=== PATIENT | male | born 1950 | race Caucasian/White ===

== ENCOUNTER → 2016-05-17 | Outpatient (CLI) | payer MEDICARE, OTHER ==
[2016-05-17 17:14] LABS: Basophils % (A) 0 %; CH 30.6; CHCM 31.7; Eosinophils # (A) 0.3 k/uL (0-0.7); Eosinophils % (A) 3 %; HCT 45.2 % (39.0-53.0); HDW 2.16; HGB 14.2 gm/dL (13.0-17.5); Luc % (Auto) 4; Lymphocytes # (A) 2.8 k/uL (1.0-4.8); Lymphocytes % (A) 32 %; MCH 30.5 pg (25.0-35.0); MCHC 31.4 g/dL (31.0-37.0); Mean Platelet Volume 6.9; Monocytes # (A) 0.5 k/uL (0-1.0); Monocytes % (A) 6 %; Neutrophils # (A) 4.8 k/uL (1.3-7.7); Neutrophils % (A) 55 %; RBC 4.66 m/uL (4.30-5.90); RDW 12.6 % (11.5-15.5); WBC 8.8 k/uL (3.8-10.6); WBC (Perox) 8.91
== END ==
LOC: LABWHC1 16:51
PROVIDERS: ATTEND Internal Medicine
DX: J06.9 Acute upper respiratory infection, unspecified (principal)
CPT/HCPCS: 85025; 87502; 36415; G0463; 99212

== ENCOUNTER 2018-01-20 15:07 | Emergency (ER) | payer MEDICARE ==
[2018-01-20] MEDS ORDERED: FAMOTIDINE 20 MG/2 ML VIAL IV STA (15:37)
[2018-01-20] MEDS ORDERED: diphenhydrAMINE 50 MG/ML 1 ML VIAL IVP STA (15:38)
--- NOTE | 2018-01-20 15:41 | ED ---
General Adult HPI - General Chief complaint: Shortness of Breath Stated complaint: Blood clot in right lung Time Seen by Provider: 01/20/18 15:28 Source: patient, RN notes reviewed Mode of arrival: wheelchair Limitations: no limitations - History of Present Illness Initial comments: This is a 7-year-old male with a history of pneumonia about a month ago and a history of DVT to his right lower extremity about 2 years ago who states he was sent over from a doctor's office with a request for evaluation for possible pulmonary embolus. Patient's had right-sided anterior chest pain sharp in nature it does get worse with movement and deep breathing. He was on antibiotics for the pneumonia that is cleared up with chest pain is been persistent. Sharp in nature mild to moderate in severity. He denies any other complaints she denies any leg or calf pain and swelling. Fevers chills nausea vomiting sweats or other symptoms at this time. - Related Data Home Medications Medication Instructions Recorded Confirmed Multivitamin [Men's Multi-Vitamin] 1 tab PO DAILY 01/27/15 01/20/18 Spironolactone [Aldactone] 25 mg PO DAILY 01/27/15 01/20/18 Cholecalciferol [Vitamin D3] 400 unit PO DAILY 08/28/15 01/20/18 Dilaudid Through Pump 3.5 mg INTRATHECA CONTINUOUS 08/28/15 01/20/18 EPINEPHrine [Epipen Jr 2-Leobardo] 0.15 mg IM ONCE PRN 08/28/15 01/20/18 Lisinopril 5 mg PO DAILY 08/28/15 01/20/18 [place]-3 Fatty Acids/Fish Oil [Fish 1 cap PO DAILY 08/28/15 01/20/18 Oil 1,000 mg Softgel] Aspirin EC [Ecotrin Low Dose] 81 mg PO DAILY 01/20/18 01/20/18 Furosemide [Lasix] 20 mg PO DAILY 01/20/18 01/20/18 Previous Rx's Medication Instructions Recorded Ibuprofen 800 mg PO Q6HR PRN #20 tablet 01/20/18 Ketorolac [Toradol] 10 mg PO Q6HR #20 tab 01/20/18 Allergies Allergy/AdvReac Type Severity Reaction Status Date / Time Iodinated Contrast- Oral and Allergy Anaphylaxis Verified 01/20/18 16:15 IV Dye [Iodinated Contrast Media - IV Dye] metformin AdvReac Abdominal Verified 01/20/18 16:15 Pain Review of Systems ROS Statement: Those systems with pertinent positive or pertinent negative responses have been documented in the HPI. ROS Other: All systems not noted in ROS Statement are negative. Past Medical History Past Medical History: COPD, Hypertension, Pneumonia, Sleep Apnea/CPAP/BIPAP Additional Past Medical History / Comment(s): Hx. of Diverticulitis, Pneumonia 2 yrs. ago, wears oxygen @ 5L. Complains of L sided abd. pain. chronic back pain History of Any Multi-Drug Resistant Organisms: None Reported Past Surgical History: Appendectomy, Cholecystectomy Additional Past Surgical History / Comment(s): Colonoscopy Past Anesthesia/Blood Transfusion Reactions: No Reported Reaction Past Psychological History: No Psychological Hx Reported Smoking Status: Former smoker Past Alcohol Use History: None Reported, Rare Past Drug Use History: None Reported - Past Family History Brother(s) Family Medical History: Cancer Additional Family Medical History / Comment(s): Colon General Exam - General Exam Comments Initial Comments: This is a well-developed well-nourished awake alert oriented 3 male Limitations: no limitations General appearance: alert, in no apparent distress Head exam: Present: atraumatic, normocephalic, normal inspection Eye exam: Present: normal appearance, PERRL, EOMI. Absent: scleral icterus, conjunctival injection, periorbital swelling ENT exam: Present: normal exam, mucous membranes moist Neck exam: Present: normal inspection. Absent: tenderness, meningismus, lymphadenopathy Respiratory exam: Present: normal lung sounds bilaterally, chest wall tenderness (Sweats patient across the anterior right chest wall at the costal sternal margin. No step-off or crepitation.). Absent: respiratory distress, wheezes, rales, rhonchi, stridor Cardiovascular Exam: Present: regular rate, normal rhythm, normal heart sounds. Absent: systolic murmur, diastolic murmur, rubs, gallop, clicks GI/Abdominal exam: Present: soft, normal bowel sounds. Absent: distended, tenderness, guarding, rebound, rigid Extremities exam: Present: normal inspection, full ROM, normal capillary refill , other (No Homans sign). Absent: tenderness, pedal edema, joint swelling, calf tenderness Back exam: Present: normal inspection Neurological exam: Present: alert, oriented X3, CN II-XII intact Psychiatric exam: Present: normal affect, normal mood Skin exam: Present: warm, dry, intact, normal color. Absent: rash Course Vital Signs 01/20/18 01/20/18 15:21 16:03 Temperature 98.4 F Pulse Rate 69 Respiratory 16 24 Rate Blood Pressure 154/82 O2 Sat by Pulse 95 Oximetry EKG Findings - EKG Results: EKG: interpreted by ERMD, sinus rhythm (Sinus rhythm with sinus arrhythmia rate was 60. A 150 QRS duration 96 daily since QTC 434/434 low-voltage QRS nonspecific T-wave configuration) Medical Decision Making - Medical Decision Making I did have a long discussion the patient regarding the findings the presentation is consistent with costochondritis - Lab Data Result diagrams: 01/20/18 16:00 01/20/18 16:00 Lab Results 01/20/18 01/20/18 01/20/18 Range/Units 16:00 16:00 16:00 WBC 7.5 (3.8-10.6) k/uL RBC 4.54 (4.30-5.90) m/uL Hgb 13.8 (13.0-17.5) gm/dL Hct 43.3 (39.0-53.0) % MCV 95.5 (80.0-100.0) fL MCH 30.4 (25.0-35.0) pg MCHC 31.8 (31.0-37.0) g/dL RDW 13.0 (11.5-15.5) % Plt Count 313 (150-450) k/uL Neutrophils % 60 % Lymphocytes % 28 % Monocytes % 7 % Eosinophils % 3 % Basophils % 1 % Neutrophils # 4.5 (1.3-7.7) k/uL Lymphocytes # 2.1 (1.0-4.8) k/uL Monocytes # 0.5 (0-1.0) k/uL Eosinophils # 0.3 (0-0.7) k/uL Basophils # 0.0 (0-0.2) k/uL D-Dimer (<0.60) mg/L FEU Sodium 138 (137-145) mmol/L Potassium 4.5 (3.5-5.1) mmol/L Chloride 99 (98-107) mmol/L Carbon Dioxide 32 H (22-30) mmol/L Anion Gap 7 mmol/L BUN 14 (9-20) mg/dL Creatinine 0.56 L (0.66-1.25) mg/dL Est GFR (CKD-EPI)AfAm >90 (>60 ml/min/1.73 sqM) Est GFR (CKD-EPI)NonAf >90 (>60 ml/min/1.73 sqM) Glucose 214 H (74-99) mg/dL Calcium 9.0 (8.4-10.2) mg/dL Magnesium 2.1 (1.6-2.3) mg/dL Total Bilirubin 0.4 (0.2-1.3) mg/dL AST 24 (17-59) U/L ALT 22 (21-72) U/L Alkaline Phosphatase 64 (38-126) U/L Total Creatine Kinase 93 (55-170) U/L CK-MB (CK-2) 1.9 (0.0-2.4) ng/mL CK-MB (CK-2) Rel Index 2.0 Troponin I <0.012 (0.000-0.034) ng/mL Total Protein 6.9 (6.3-8.2) g/dL Albumin 3.9 (3.5-5.0) g/dL //18 Range/Units 16:00 WBC (3.8-10.6) k/uL RBC (4.30-5.90) m/uL Hgb (13.0-17.5) gm/dL Hct (39.0-53.0) % MCV (80.0-100.0) fL MCH (25.0-35.0) pg MCHC (31.0-37.0) g/dL RDW (11.5-15.5) % Plt Count (150-450) k/uL Neutrophils % % Lymphocytes % % Monocytes % % Eosinophils % % Basophils % % Neutrophils # (1.3-7.7) k/uL Lymphocytes # (1.0-4.8) k/uL Monocytes # (0-1.0) k/uL Eosinophils # (0-0.7) k/uL Basophils # (0-0.2) k/uL D-Dimer 0.76 H (<0.60) mg/L FEU Sodium (137-145) mmol/L Potassium (3.5-5.1) mmol/L Chloride (98-107) mmol/L Carbon Dioxide (22-30) mmol/L Anion Gap mmol/L BUN (9-20) mg/dL Creatinine (0.66-1.25) mg/dL Est GFR (CKD-EPI)AfAm (>60 ml/min/1.73 sqM) Est GFR (CKD-EPI)NonAf (>60 ml/min/1.73 sqM) Glucose (74-99) mg/dL Calcium (8.4-10.2) mg/dL Magnesium (1.6-2.3) mg/dL Total Bilirubin (0.2-1.3) mg/dL AST (17-59) U/L ALT (21-72) U/L Alkaline Phosphatase (38-126) U/L Total Creatine Kinase (55-170) U/L CK-MB (CK-2) (0.0-2.4) ng/mL CK-MB (CK-2) Rel Index Troponin I (0.000-0.034) ng/mL Total Protein (6.3-8.2) g/dL Albumin (3.5-5.0) g/dL - Radiology Data Radiology results: report reviewed (Patient CAT scan is negative for acute findings no PE there is some inflammatory changes this would be consistent with the patient's resolving pneumonia.), image reviewed Disposition Clinical Impression: Chest wall pain, Costochondritis, acute Disposition: HOME SELF-CARE Condition: Good Instructions: Costochondritis (ED), Chest Wall Pain (ED) Prescriptions: Ibuprofen 800 mg PO Q6HR PRN #20 tablet PRN Reason: Pain Ketorolac [Toradol] 10 mg PO Q6HR #20 tab Is patient prescribed a controlled substance at d/c from ED?: No Referrals: Patrick Nicole MD [Primary Care Provider] - 1-2 days
[2018-01-20 16:20] LABS: Basophils % (A) 1 %; Eosinophils # (A) 0.3 k/uL (0-0.7); Eosinophils % (A) 3 %; HCT 43.3 % (39.0-53.0); HGB 13.8 gm/dL (13.0-17.5); Lymphocytes # (A) 2.1 k/uL (1.0-4.8); Lymphocytes % (A) 28 %; MCH 30.4 pg (25.0-35.0); MCHC 31.8 g/dL (31.0-37.0); MCV 95.5 fL (80.0-100.0); Mean Platelet Volume 6.8; Monocytes # (A) 0.5 k/uL (0-1.0); Monocytes % (A) 7 %; Neutrophils # (A) 4.5 k/uL (1.3-7.7); Neutrophils % (A) 60 %; Platelet Count 313 k/uL (150-450); RBC 4.54 m/uL (4.30-5.90); WBC 7.5 k/uL (3.8-10.6)
[2018-01-20 16:30] LABS: ALT 22 U/L (21-72); AST 24 U/L (17-59); Albumin 3.9 g/dL (3.5-5.0); Alkaline Phosphatase 64 U/L (38-126); Anion Gap 7 mmol/L; Blood Urea Nitrogen 14 mg/dL (9-20); Carbon Dioxide 32 mmol/L (22-30); Chloride 99 mmol/L (98-107); Glucose 214 mg/dL (74-99); Magnesium 2.1 mg/dL (1.6-2.3); Potassium 4.5 mmol/L (3.5-5.1); Sodium 138 mmol/L (137-145); Total Bilirubin 0.4 mg/dL (0.2-1.3); Total Protein 6.9 g/dL (6.3-8.2)
[2018-01-20 16:33] LABS: Creatine Kinase 93 U/L (55-170)
[2018-01-20] MEDS ORDERED: fentaNYL (PF) 50 MCG/ML 2 ML AMP IV STA (16:40)
[2018-01-20 16:46] LABS: Creatine Kinase MB 1.9 ng/mL (0.0-2.4); Troponin I <0.012 ng/mL (0.000-0.034)
--- NOTE | 2018-01-20 17:15 | CT ---
EXAMINATION TYPE: CT angio chest DATE OF EXAM: 01/20/2018 5:06 PM COMPARISON: None HISTORY: SOB. hx blood cot in his leg [address] DLP: 696.6 mGycm Automated exposure control for dose reduction was used. CONTRAST: CTA scan of the thorax is performed with IV Contrast, patient injected with 100 mL of Isovue 370, pul monary embolism protocol. There are 3-D post processed images.. FINDINGS: There is pulmonary emphysema. There is bullous disease throughout both lungs. There is some patchy re ticular nodular infiltrate at the lung bases and more on the left side. There is no evidence of a pul monary mass. There is no pleural effusion. Heart size is normal. There is no pericardial effusion. Th oracic aorta is intact without evidence of aneurysm or dissection. I see no filling defects in the pu lmonary arteries. There are no hilar masses. There is no mediastinal adenopathy. The bony thorax is i ntact. There is spurring in the thoracic spine. The ribs appear intact. IMPRESSION: NO EVIDENCE OF PULMONARY EMBOLISM. EMPHYSEMA. RETICULAR NODULAR INFILTRATES AT THE LUNG BASES CONSISTENT WITH INFLAMMATORY DISEASE.
[2018-01-20] MEDS ORDERED: methylPREDNISolone SOD SUCCI 125 MG/2 ML VIAL IV STA (17:22)
[2018-01-20] MEDS ORDERED: SODIUM CHLORIDE 0.9% 500 ML 500 ML IV STA (17:35)
[2018-01-20 18:08] VITALS: BP 135/89; PULSE 62; RESP 20; TEMP 98.2
== END 2018-01-20 18:08 | disposition home or self-care (01) ==
LOC: EC 15:07
DX: M94.0 Chondrocostal junction syndrome [Tietze] (principal); R93.89 Abnormal findings on diagnostic imaging of other specified body structures; I10 Essential (primary) hypertension; J44.9 Chronic obstructive pulmonary disease, unspecified; G89.29 Other chronic pain; G47.30 Sleep apnea, unspecified; Z87.891 Personal history of nicotine dependence; Z88.8 Allergy status to other drugs, medicaments and biological substances; Z91.041 Radiographic dye allergy status; Z79.82 Long term (current) use of aspirin; Z79.891 Long term (current) use of opiate analgesic; Z79.899 Other long term (current) drug therapy; Z99.81 Dependence on supplemental oxygen; Z99.89 Dependence on other enabling machines and devices
CPT/HCPCS: 36415; 93005; 85379; 80053; 82550; 82553; 83735; 84484; 85025; 71275; 99285; 96374; 96375 ×3; J1200; J2930; J3010; Q9967

== ENCOUNTER 2018-12-08 10:03 | Day surgery (SDC) | payer MEDICARE ==
[2018-12-07 10:10] VITALS: BMI 39.2
--- NOTE | 2018-12-07 19:34 | P.GSHP ---
History of Present Illness H&P Date: 12/08/18 CHIEF COMPLAINT: GERD HISTORY OF PRESENT ILLNESS: The patient is a 68-year-old male who presents reports gastroesophageal reflux disease. Upper endoscopy was offered for further evaluation and management. PAST MEDICAL HISTORY: Please see list. PAST SURGICAL HISTORY: Please see list. MEDICATIONS: Please see list. ALLERGIES: Please see list. SOCIAL HISTORY: No illicit drug use FAMILY HISTORY: No reports of Crohn disease or ulcerative colitis. REVIEW OF ORGAN SYSTEMS: CONSTITUTIONAL: No reports of fevers or chills. GI: Denies any blood in stools or constipation. PHYSICAL EXAM: VITAL SIGNS: Stable GENERAL: Well-developed and pleasant in no acute distress. HEENT: No scleral icterus. Extraocular movements grossly intact. Moist buccal mucosa. NECK: Supple without lymphadenopathy. CHEST: Unlabored respirations. Equal bilateral excursions. CARDIOVASCULAR: Regular rate and rhythm. Distal 2+ pulses. ABDOMEN: Soft, nondistended. MUSCULOSKELETAL: No clubbing, cyanosis, or edema. ASSESSMENT: 1. Gastroesophageal reflux disease PLAN: 1. Recommend proceeding with an upper endoscopy Past Medical History Past Medical History: COPD, Deep Vein Thrombosis (DVT), GERD/Reflux, Hypertension, Pneumonia, Sleep Apnea/CPAP/BIPAP Additional Past Medical History / Comment(s): Hx. of Diverticulitis, Pneumonia 2 yrs. ago, uses oxygen @ 5L, chronic back pain, right upper quadrant pain, uses CPAP, hx. DVT leg 4 yrs ago History of Any Multi-Drug Resistant Organisms: None Reported Past Surgical History: Appendectomy, Bowel Resection, Cholecystectomy Additional Past Surgical History / Comment(s): Colonoscopy, exp. laparotomy Past Anesthesia/Blood Transfusion Reactions: No Reported Reaction Smoking Status: Former smoker - Past Family History Brother(s) Family Medical History: Cancer Additional Family Medical History / Comment(s): Colon Medications and Allergies Home Medications Medication Instructions Recorded Confirmed Type Multivitamin [Men's Multi-Vitamin] 1 tab PO DAILY 01/27/15 12/07/18 History Spironolactone [Aldactone] 25 mg PO DAILY 01/27/15 12/07/18 History Cholecalciferol [Vitamin D3] 400 unit PO DAILY 08/28/15 12/07/18 History Dilaudid Through Pump 3.5 mg INTRATHECA CONTINUOUS 08/28/15 12/07/18 History EPINEPHrine [Epipen Jr 2-Leobardo] 0.15 mg IM ONCE PRN 08/28/15 12/07/18 History Lisinopril 5 mg PO DAILY 08/28/15 12/07/18 History [place]-3 Fatty Acids/Fish Oil [Fish 1 cap PO DAILY 08/28/15 12/07/18 History Oil 1,000 mg Softgel] Aspirin EC [Ecotrin Low Dose] 81 mg PO DAILY 01/20/18 12/07/18 History Furosemide [Lasix] 20 mg PO DAILY 01/20/18 12/07/18 History Ibuprofen 800 mg PO Q6HR PRN #20 tablet 01/20/18 12/07/18 Rx Albuterol Nebulized [Ventolin 2.5 mg INHALATION Q6H 12/07/18 12/07/18 History Nebulized] Albuterol Sulfate [Proair Hfa] 1 - 2 puff INHALATION Q6HR PRN 12/07/18 12/07/18 History Atorvastatin [Lipitor] 10 mg PO DAILY 12/07/18 12/07/18 History Allergies Allergy/AdvReac Type Severity Reaction Status Date / Time Iodinated Contrast Media Allergy Anaphylaxis Verified 12/07/18 09:47 [Iodinated Contrast Media - IV Dye] metformin AdvReac Abdominal Verified 12/07/18 09:47 Pain
[~2018-12-08 10:03] MED LIST: LACTATED RINGERS 1,000 ML IV SCH
[2018-12-08 10:37] VITALS: TEMP 98.3
[2018-12-08] MEDS ORDERED: LIDOCAINE 1% 20 ML VIAL (10MG/ML) FOR IV START INTRADERMA ONE (10:39)
[2018-12-08] MEDS ORDERED: PROPOFOL 10 MG/ML 20 ML VIAL IV ONE (11:13)
[2018-12-08] MEDS ORDERED: LIDOCAINE 1% INJ 10MG/ML (20 ML MDV) ONE (11:13)
--- NOTE | 2018-12-08 11:49 | P.PCN ---
Date of Procedure: 12/08/18 Description of Procedure: PREOPERATIVE DIAGNOSIS: Gastroesophageal reflux disease. Morbid obesity. Epigastric abdominal pain POSTOPERATIVE DIAGNOSIS: Gastroesophageal reflux disease. Diaphragmatic hiatal hernia Morbid obesity. Gastritis. Epigastric abdominal pain OPERATION: Esophagogastroduodenoscopy with biopsies along antrum. SURGEON: Jaclyn Ware MD ANESTHESIA: MAC. INDICATIONS: The patient is a 68-year-old female who presents with a history of reflux disease. Benefits and risks of the procedure were described. Informed consent was obtained. DESCRIPTION: The patient was brought into the endoscopy suite and laid in the left lateral decubitus position. An Olympus gastroscope was passed along the posterior oropharynx down to the distal esophagus where the squamocolumnar junction was encountered at 37 cm from the incisors. The stomach was entered and no bile reflux was found. Additional findings are listed below. Biopsies with cold forceps were obtained of the antrum. The first through third portion of the duodenum was examined and unremarkable. Retroflexion of the scope confirmed Hill grade 3 lower esophageal valve. The squamocolumnar junction demonstrated LA grade B erosive esophagitis. The stomach was desufflated. The patient tolerated the procedure well. FINDINGS: Squamocolumnar junction 37 cm from the incisors. Diaphragmatic hiatus at 41 cm. Hiatal hernia, 4 cm Hill grade 3 lower esophageal valve. LA grade B erosive esophagitis. No active duodenitis. Chronic gastritis RECOMMENDATIONS: Upper endoscopy as needed. Plan - Discharge Summary Discharge Rx Participant: No New Discharge Prescriptions: New Omeprazole 40 mg PO DAILY #14 capsule.dr No Action Spironolactone [Aldactone] 25 mg PO DAILY Multivitamin [Men's Multi-Vitamin] 1 tab PO DAILY [place]-3 Fatty Acids/Fish Oil [Fish Oil 1,000 mg Softgel] 1 cap PO DAILY Lisinopril 5 mg PO DAILY Cholecalciferol [Vitamin D3] 400 unit PO DAILY EPINEPHrine [Epipen Jr 2-Leobardo] 0.15 mg IM ONCE PRN PRN Reason: Anaphylaxis Dilaudid Through Pump 3.5 mg INTRATHECA CONTINUOUS Furosemide [Lasix] 20 mg PO DAILY Aspirin EC [Ecotrin Low Dose] 81 mg PO DAILY Ibuprofen 800 mg PO Q6HR PRN #20 tablet PRN Reason: Pain Atorvastatin [Lipitor] 10 mg PO DAILY Albuterol Sulfate [Proair Hfa] 1 - 2 puff INHALATION Q6HR PRN PRN Reason: Dyspnea Albuterol Nebulized [Ventolin Nebulized] 2.5 mg INHALATION Q6H Discharge Medication List Multivitamin [Men's Multi-Vitamin] 1 tab PO DAILY 01/27/15 [History] Spironolactone [Aldactone] 25 mg PO DAILY 01/27/15 [History] Cholecalciferol [Vitamin D3] 400 unit PO DAILY 08/28/15 [History] Dilaudid Through Pump 3.5 mg INTRATHECA CONTINUOUS 08/28/15 [History] EPINEPHrine [Epipen Jr 2-Leobardo] 0.15 mg IM ONCE PRN 08/28/15 [History] Lisinopril 5 mg PO DAILY 08/28/15 [History] [place]-3 Fatty Acids/Fish Oil [Fish Oil 1,000 mg Softgel] 1 cap PO DAILY 08/28/15 [History] Aspirin EC [Ecotrin Low Dose] 81 mg PO DAILY 01/20/18 [History] Furosemide [Lasix] 20 mg PO DAILY 01/20/18 [History] Ibuprofen 800 mg PO Q6HR PRN #20 tablet 01/20/18 [Rx] Albuterol Nebulized [Ventolin Nebulized] 2.5 mg INHALATION Q6H 12/07/18 [History] Albuterol Sulfate [Proair Hfa] 1 - 2 puff INHALATION Q6HR PRN 12/07/18 [History] Atorvastatin [Lipitor] 10 mg PO DAILY 12/07/18 [History] Omeprazole 40 mg PO DAILY #14 capsule. 12/08/18 [Rx] Follow up Appointment(s)/Referral(s): Jaclyn Ware MD [STAFF PHYSICIAN] - 12/19/18 Patient Instructions/Handouts: *[facility] - (Anesthesia) Endoscopy Discharge Instructions, Hiatal Hernia (DC), Gastroesophageal Reflux Disease (DC) Discharge Disposition: HOME SELF-CARE
[2018-12-08 12:01] VITALS: BP 123/73; PULSE 77; RESP 18
== END 2018-12-08 12:11 | disposition home or self-care (01) ==
LOC: ORWHC2ENDO 10:03
PROVIDERS: ATTEND Surgery Plastic and Reconstructive Surgery
DX: K29.50 Unspecified chronic gastritis without bleeding (principal); K21.0 Gastro-esophageal reflux disease with esophagitis; K22.10 Ulcer of esophagus without bleeding; K44.9 Diaphragmatic hernia without obstruction or gangrene; K31.89 Other diseases of stomach and duodenum; I10 Essential (primary) hypertension; E78.5 Hyperlipidemia, unspecified; J44.9 Chronic obstructive pulmonary disease, unspecified; G89.29 Other chronic pain; E66.01 Morbid (severe) obesity due to excess calories; G47.30 Sleep apnea, unspecified; Z91.041 Radiographic dye allergy status; Z88.8 Allergy status to other drugs, medicaments and biological substances; Z99.89 Dependence on other enabling machines and devices; Z79.891 Long term (current) use of opiate analgesic; Z79.82 Long term (current) use of aspirin; Z79.899 Other long term (current) drug therapy; Z86.718 Personal history of other venous thrombosis and embolism; Z87.01 Personal history of pneumonia (recurrent); Z90.49 Acquired absence of other specified parts of digestive tract; Z87.891 Personal history of nicotine dependence; Z87.19 Personal history of other diseases of the digestive system; Z91.038 Other insect allergy status; Z68.39 Body mass index [BMI] 39.0-39.9, adult; Z80.0 Family history of malignant neoplasm of digestive organs
CPT/HCPCS: 88305; 43239; J2001; J2704

== ENCOUNTER → 2019-01-03 | Outpatient (CLI) | payer MEDICARE ==
[2019-01-03 09:18] LABS: African American GFR (CKD) >90 (>60 ml/min/1.73 sqM); Blood Urea Nitrogen 14 mg/dL (9-20)
--- NOTE | 2019-01-03 13:26 | FL ---
EXAMINATION TYPE: FL barium swallow DATE OF EXAM: 01/03/2019 COMPARISON: None HISTORY: Gastroesophageal reflux, abdominal pain always feels hungry TECHNIQUE: Double air contrast technique Fluoroscopy time: 1 minute 3 seconds Images: 16 FINDINGS: The esophagus has a normal course to the distal esophageal junction. Multiple secondary and tertiary contractions are evident throughout the examination. Esophagus dilates to normal caliber. No intralum inal defects are evident. Extrarenal defects are not evident. Note is made of aspiration during the exam. There is incomplete stripping esophageal bolus the horizontal drinking position. As incomplete stripp ing of the esophageal bolus and horizontal drinking position. IMPRESSIONS: 1. Presbyesophagus. Multiple large tertiary as well as secondary contractions were evident during exa m. 2. Aspiration during the exam.
--- NOTE | 2019-01-03 16:14 | CT ---
EXAMINATION TYPE: CT abdomen pelvis w con DATE OF EXAM: 01/03/2019 COMPARISON: 08/28/2015 INDICATION: Diverticulitis DLP: 2099.50 mGycm, Automated exposure control for dose reduction was used. CONTRAST: 100 ml mL of Isovue 300. Study performed with Oral Contrast TECHNIQUE: Axial images were obtained from above the diaphragm to the pubic rami in the axial plane a t 5 mm thick sections. Reconstructed images are reviewed on the computer in the coronal plane. FINDINGS: Limited CT sections are obtained the lung bases. The lung bases are clear. CT ABDOMEN: Electronic device overlies anterolateral right abdomen. Liver: Normal Spleen: Normal Pancreas: Fatty infiltration to the pancreas. Adrenal glands: The adrenal glands are normal. Gallbladder: Normal Kidneys: No masses are evident. No hydronephrosis is present. No cysts are present. Delayed images were obtained through the kidneys, which remain unremarkable. Aorta: Vascular calcification is within the aorta. Inferior vena cava: Normal. CT PELVIS: Loops of bowel within the abdomen and pelvis are normal. There are some loops of bowel with limit ed distention or lacking oral contrast limiting their evaluation. Prior bowel surgeries at the distal sigmoid colon. Scattered diverticuli may be present. No acute diverticulitis is evident. Appendix: Normal as visualized. Urinary bladder: Normal. Genitourinary structures: Prostate appears normal. Osseous structures: No suspicious lytic or sclerotic lesions. Some facet degenerative changes present . IMPRESSIONS: 1. No suspicious acute changes evident. 2. Mild diverticulosis without acute diverticulitis.
== END | disposition home or self-care (01) ==
LOC: RADCTMAIN 08:24
PROVIDERS: ATTEND Surgery Plastic and Reconstructive Surgery
DX: K57.90 Diverticulosis of intestine, part unspecified, without perforation or abscess without bleeding (principal); K22.8 Other specified diseases of esophagus; K57.32 Diverticulitis of large intestine without perforation or abscess without bleeding
CPT/HCPCS: 82565; 84520; 74220; 74177; 36415; Q9967

== ENCOUNTER 2019-02-07 09:52 | Day surgery (SDC) | payer MEDICARE ==
[2019-02-06 08:44] VITALS: BMI 37.2
[~2019-02-07 09:52] MED LIST changes: +LIDOCAINE 1% 20 ML VIAL (10MG/ML) FOR IV START INTRADERMA PRN
--- NOTE | 2019-02-07 10:06 | P.GSHP ---
History of Present Illness H&P Date: 02/07/19 CHIEF COMPLAINT: GERD HISTORY OF PRESENT ILLNESS: The patient is a 68-year-old male who presents reports gastroesophageal reflux disease. Upper endoscopy was offered for further evaluation and management. PAST MEDICAL HISTORY: Please see list. PAST SURGICAL HISTORY: Please see list. MEDICATIONS: Please see list. ALLERGIES: Please see list. SOCIAL HISTORY: No illicit drug use FAMILY HISTORY: No reports of Crohn disease or ulcerative colitis. REVIEW OF ORGAN SYSTEMS: CONSTITUTIONAL: No reports of fevers or chills. GI: Denies any blood in stools or constipation. PHYSICAL EXAM: VITAL SIGNS: Stable GENERAL: Well-developed and pleasant in no acute distress. HEENT: No scleral icterus. Extraocular movements grossly intact. Moist buccal mucosa. NECK: Supple without lymphadenopathy. CHEST: Unlabored respirations. Equal bilateral excursions. CARDIOVASCULAR: Regular rate and rhythm. Distal 2+ pulses. ABDOMEN: Soft, nondistended. MUSCULOSKELETAL: No clubbing, cyanosis, or edema. ASSESSMENT: 1. Gastroesophageal reflux disease PLAN: 1. Recommend proceeding with an upper endoscopy Past Medical History Past Medical History: COPD, Deep Vein Thrombosis (DVT), GERD/Reflux, Hypertension, Pneumonia, Sleep Apnea/CPAP/BIPAP Additional Past Medical History / Comment(s): Hx. of Diverticulitis, Pneumonia (2018), oxygen @ 5L ATC, chronic back pain, uses CPAP, hx. DVT leg , neuropathy feet, hx of pancreatitis, steroid induced hyperglycemia., having stomach pain and dysphagia. History of Any Multi-Drug Resistant Organisms: None Reported Past Surgical History: Appendectomy, Bowel Resection, Cholecystectomy Additional Past Surgical History / Comment(s): Colonoscopy, exp. laparotomy, EGD, LASIK EYE SURGERY. Past Anesthesia/Blood Transfusion Reactions: No Reported Reaction Past Psychological History: No Psychological Hx Reported Smoking Status: Former smoker Past Alcohol Use History: Rare Additional Past Alcohol Use History / Comment(s): quit smoking 2000, smoked 1- 2ppd since age of 17 Past Drug Use History: None Reported - Past Family History Brother(s) Family Medical History: Cancer Additional Family Medical History / Comment(s): Colon Medications and Allergies Home Medications Medication Instructions Recorded Confirmed Type Spironolactone [Aldactone] 25 mg PO DAILY 01/27/15 02/06/19 History Aspirin EC [Ecotrin Low Dose] 81 mg PO DAILY 01/20/18 02/06/19 History Albuterol Nebulized [Ventolin 2.5 mg INHALATION QID 12/07/18 02/06/19 History Nebulized] Albuterol Sulfate [Proair Hfa] 1 - 2 puff INHALATION BID 12/07/18 02/06/19 History Furosemide [Lasix] 40 mg PO DAILY 02/06/19 02/06/19 History Gabapentin [Neurontin] 100 mg PO TID 02/06/19 02/06/19 History Indomethacin [Indocin] 25 mg PO TID 02/06/19 02/06/19 History Ondansetron [Zofran] 4 mg PO Q8HR PRN 02/06/19 02/06/19 History Allergies Allergy/AdvReac Type Severity Reaction Status Date / Time Iodinated Contrast Media Allergy Anaphylaxis Verified 02/06/19 08:32 [Iodinated Contrast Media - IV Dye] metformin AdvReac Abdominal Verified 02/06/19 08:32 Pain
[2019-02-07 10:58] LABS: Glucose,Whole Blood 139 mg/dL (75-99)
[2019-02-07 11:02] VITALS: TEMP 98.3
[2019-02-07] MEDS ORDERED: LIDOCAINE 1% INJ 10MG/ML (20 ML MDV) ONE (11:42)
[2019-02-07] MEDS ORDERED: PROPOFOL 10 MG/ML 20 ML VIAL IV ONE (11:42)
--- NOTE | 2019-02-07 12:01 | P.PCN ---
Date of Procedure: 02/07/19 Description of Procedure: PREOPERATIVE DIAGNOSIS: Dysphagia. Gastroesophageal reflux disease Morbid obesity excess calories, BMI 39.6 Esophageal dysmotility Presbyesophagus POSTOPERATIVE DIAGNOSIS: Dysphagia. Gastroesophageal reflux disease Morbid obesity excess calories, BMI 39.6 Esophageal dysmotility Presbyesophagus Gastritis OPERATION: Esophagogastroduodenoscopy with rigid dilator over the guidewire 57 Fr. Esophagogastroduodenoscopy with cold forceps biopsies along antrum SURGEON: Jaclyn Ware MD ANESTHESIA: MAC. INDICATIONS: The patient is a 68-year-old male who presents with a history of dysphagia and esophageal dysmotility. Benefits and risks of the procedure were described. In formed consent was obtained. DESCRIPTION: The patient was brought into the endoscopy suite and laid in the left lateral decubitus position. After a timeout was confirmed, the procedure was initiated. An Olympus gastroscope was passed with esophageal dysmotility and the stomach was entered. Mild gastritis was identified. The scope was advanced to the duodenum which was unremarkable. Next using an Iraqi rigid dilator, a guidewire was placed through the pediatric gastroscope. Next the scope was withdrawn. A 57-Congolese rigid Iraqi dilator was passed carefully along the posterior oropharynx to 50 cm and left in place for 2-3 minutes stretch. The dilator was withdrawn including the guidewire. The scope was reentered along the posterior oropharynx with no findings of full-thickness tear of the upper esophageal sphincter. Next, inflammation of the antrum was identified with cold forceps biopsies obtained. No full-thickness injury was encountered. The GI tract was desufflated. The patient tolerated the procedure well. FINDINGS: Squamocolumnar junction unremarkable at 40 cm. Iraqi rigid dilator 57-Congolese completed. Diffuse gastritis. Hill grade 2 lower esophageal valve. LA grade B esophagitis. RECOMMENDATIONS: Upper endoscopy as needed Plan - Discharge Summary New Discharge Prescriptions: No Action Spironolactone [Aldactone] 25 mg PO DAILY Aspirin EC [Ecotrin Low Dose] 81 mg PO DAILY Albuterol Sulfate [Proair Hfa] 1 - 2 puff INHALATION BID Albuterol Nebulized [Ventolin Nebulized] 2.5 mg INHALATION QID Ondansetron [Zofran] 4 mg PO Q8HR PRN PRN Reason: Nausea Gabapentin [Neurontin] 100 mg PO TID Furosemide [Lasix] 40 mg PO DAILY Indomethacin [Indocin] 25 mg PO TID Dextroamphetamine/Amphetamine [Adderall] 30 mg PO DAILY Nf Dilaudid 4.5 mg INTRADERMA CONTINUOUS Discharge Medication List Spironolactone [Aldactone] 25 mg PO DAILY 01/27/15 [History] Aspirin EC [Ecotrin Low Dose] 81 mg PO DAILY 01/20/18 [History] Albuterol Nebulized [Ventolin Nebulized] 2.5 mg INHALATION QID 12/07/18 [History] Albuterol Sulfate [Proair Hfa] 1 - 2 puff INHALATION BID 12/07/18 [History] Furosemide [Lasix] 40 mg PO DAILY 02/06/19 [History] Gabapentin [Neurontin] 100 mg PO TID 02/06/19 [History] Indomethacin [Indocin] 25 mg PO TID 02/06/19 [History] Ondansetron [Zofran] 4 mg PO Q8HR PRN 02/06/19 [History] Dextroamphetamine/Amphetamine [Adderall] 30 mg PO DAILY 02/07/19 [History] Nf Dilaudid 4.5 mg INTRADERMA CONTINUOUS 02/07/19 [History] Follow up Appointment(s)/Referral(s): Jaclyn Ware MD [STAFF PHYSICIAN] - 02/20/19 Patient Instructions/Handouts: Esophageal Dilation (DC), Complete Blenderized Diet (DC) Activity/Diet/Wound Care/Special Instructions: Ground or pured diet Discharge Disposition: HOME SELF-CARE
[2019-02-07 12:55] VITALS: BP 151/89; PULSE 68; RESP 18
== END 2019-02-07 13:30 | disposition home or self-care (01) ==
LOC: ORWHC2ENDO 09:52
PROVIDERS: ATTEND Surgery Plastic and Reconstructive Surgery
DX: K29.50 Unspecified chronic gastritis without bleeding (principal); K21.0 Gastro-esophageal reflux disease with esophagitis; K22.4 Dyskinesia of esophagus; K22.8 Other specified diseases of esophagus; J44.9 Chronic obstructive pulmonary disease, unspecified; I10 Essential (primary) hypertension; G47.33 Obstructive sleep apnea (adult) (pediatric); F90.9 Attention-deficit hyperactivity disorder, unspecified type; E66.01 Morbid (severe) obesity due to excess calories; G62.9 Polyneuropathy, unspecified; G89.29 Other chronic pain; Z79.82 Long term (current) use of aspirin; Z79.899 Other long term (current) drug therapy; Z91.041 Radiographic dye allergy status; Z88.8 Allergy status to other drugs, medicaments and biological substances; Z90.49 Acquired absence of other specified parts of digestive tract; Z96.9 Presence of functional implant, unspecified; Z91.030 Bee allergy status; Z68.39 Body mass index [BMI] 39.0-39.9, adult; Z87.01 Personal history of pneumonia (recurrent); Z86.718 Personal history of other venous thrombosis and embolism; Z99.89 Dependence on other enabling machines and devices; Z87.891 Personal history of nicotine dependence; Z80.0 Family history of malignant neoplasm of digestive organs
CPT/HCPCS: 43248; 88305; 43239; J2001; J2704; 43249

== ENCOUNTER 2019-05-09 09:09 | Day surgery (SDC) | payer MEDICARE ==
[2019-05-08 13:50] VITALS: BMI 38.9
--- NOTE | 2019-05-09 08:34 | P.GSHP ---
History of Present Illness H&P Date: 05/09/19 CHIEF COMPLAINT: GERD HISTORY OF PRESENT ILLNESS: The patient is a 68-year-old male who presents reports gastroesophageal reflux disease. Upper endoscopy was offered for further evaluation and management. PAST MEDICAL HISTORY: Please see list. PAST SURGICAL HISTORY: Please see list. MEDICATIONS: Please see list. ALLERGIES: Please see list. SOCIAL HISTORY: No illicit drug use FAMILY HISTORY: No reports of Crohn disease or ulcerative colitis. REVIEW OF ORGAN SYSTEMS: CONSTITUTIONAL: No reports of fevers or chills. GI: Denies any blood in stools or constipation. PHYSICAL EXAM: VITAL SIGNS: Stable GENERAL: Well-developed and pleasant in no acute distress. HEENT: No scleral icterus. Extraocular movements grossly intact. Moist buccal mucosa. NECK: Supple without lymphadenopathy. CHEST: Unlabored respirations. Equal bilateral excursions. CARDIOVASCULAR: Regular rate and rhythm. Distal 2+ pulses. ABDOMEN: Soft, nondistended. MUSCULOSKELETAL: No clubbing, cyanosis, or edema. ASSESSMENT: 1. Gastroesophageal reflux disease PLAN: 1. Recommend proceeding with an upper endoscopy Past Medical History Past Medical History: COPD, Deep Vein Thrombosis (DVT), GERD/Reflux, Hyperlipidemia, Hypertension, Pneumonia, Sleep Apnea/CPAP/BIPAP Additional Past Medical History / Comment(s): Hx. of Diverticulitis, Pneumonia (2018), oxygen @ 5L ATC, chronic back pain, uses CPAP, hx. DVT leg , neuropathy feet, hx of pancreatitis, hyperglycemia when on steroids-none for >year, having stomach pain and dysphagia. History of Any Multi-Drug Resistant Organisms: None Reported Past Surgical History: Appendectomy, Bowel Resection, Cholecystectomy Additional Past Surgical History / Comment(s): Colonoscopy, exp. laparotomy, EGD, LASIK EYE SURGERY, pain pump Past Anesthesia/Blood Transfusion Reactions: No Reported Reaction Smoking Status: Former smoker - Past Family History Brother(s) Family Medical History: Cancer Additional Family Medical History / Comment(s): Colon Medications and Allergies Home Medications Medication Instructions Recorded Confirmed Type Spironolactone [Aldactone] 25 mg PO DAILY 01/27/15 05/08/19 History Aspirin EC [Ecotrin Low Dose] 81 mg PO DAILY 01/20/18 05/08/19 History Albuterol Nebulized [Ventolin 2.5 mg INHALATION QID PRN 12/07/18 05/08/19 History Nebulized] Albuterol Sulfate [Proair Hfa] 1 - 2 puff INHALATION BID 12/07/18 05/08/19 History Furosemide [Lasix] 40 mg PO DAILY 02/06/19 05/08/19 History Gabapentin [Neurontin] 300 mg PO TID 02/06/19 05/08/19 History Ondansetron [Zofran] 4 mg PO Q8HR PRN 02/06/19 05/08/19 History Nf Dilaudid 4.5 mg INTRATHECA CONTINUOUS 02/07/19 05/08/19 History Atorvastatin [Lipitor] 10 mg PO HS 05/08/19 05/08/19 History Sennosides [Senna] 8.6 mg PO BID 05/08/19 05/08/19 History Allergies Allergy/AdvReac Type Severity Reaction Status Date / Time bee pollen Allergy Anaphylaxis Verified 05/08/19 13:45 Iodinated Contrast Media Allergy Anaphylaxis Verified 05/08/19 13:31 [Iodinated Contrast Media - IV Dye] metformin AdvReac Abdominal Verified 05/08/19 13:31 Pain
[2019-05-09 09:59] VITALS: TEMP 97.4
[2019-05-09] MEDS ORDERED: LACTATED RINGERS 1,000 ML IV ONE (10:12)
[2019-05-09] MEDS ORDERED: LIDOCAINE 1% (10MG/ML) FOR IV START INTRADERMA ONE (10:12)
[2019-05-09] MEDS ORDERED: MIDAZOLAM 2 MG/2 ML VIAL ONE (10:37)
[2019-05-09] MEDS ORDERED: KETAMINE 10 MG/ML 20 ML VIAL ONE (10:37)
[2019-05-09] MEDS ORDERED: fentaNYL (PF) 50 MCG/ML 2 ML AMP ONE (10:37)
[2019-05-09] MEDS ORDERED: PROPOFOL 10 MG/ML 20 ML VIAL IV ONE (10:37)
--- NOTE | 2019-05-09 11:03 | P.PCN ---
Date of Procedure: 05/09/19 Description of Procedure: PREOPERATIVE DIAGNOSIS: Dysphagia. Epigastric abdominal pain Gastroesophageal reflux disease Morbid obesity excess calories, BMI 39.6 Esophageal dysmotility Presbyesophagus POSTOPERATIVE DIAGNOSIS: Dysphagia. 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 SURGEON: Jaclyn Ware MD ANESTHESIA: MAC. INDICATIONS: The patient is a 68-year-old male who presents with a history of dysphagia, star re epigastric abdominal pain and esophageal dysmotility. Benefits and risks of the procedure were described. Informed consent was obtained. DESCRIPTION: The patient was brought into the endoscopy suite and laid in the left lateral decubitus position. After a timeout was confirmed, the procedure was initiated. An Olympus gastroscope was passed where very tight contractions of the distal esophagus was identified. Moderate acute gastritis with bleeding was identified. The scope was advanced to the duodenum which was remarkable for duodenitis. Next using an Namibian rigid dilator, a guidewire was placed through the gastroscope. Next the scope was withdrawn. A 60-Honduran rigid dilator was attempted however unable to pass. A 57-Honduran rigid Namibian dilator was passed carefully along the posterior oropharynx to 50 cm and left in place for 2-3 minutes stretch. The dilator was withdrawn including the guidewire. The scope was reentered along the posterior oropharynx with no findings of tear of the mucosa or sphincters were found. No full-thickness injury was encountered. The GI tract was desufflated. The patient tolerated the procedure well. FINDINGS: Severe distal esophageal contractions consistent with nutcracker esophagus Namibian rigid dilator 57-Honduran completed. Diffuse gastritis, acute or recent bleeding Hill grade 2 lower esophageal valve. LA grade B esophagitis. Duodenitis RECOMMENDATIONS: Recommend referral to tertiary care center for symptomatic nutcracker esophagus Plan - Discharge Summary Discharge Rx Participant: No New Discharge Prescriptions: No Action Spironolactone [Aldactone] 25 mg PO DAILY Aspirin EC [Ecotrin Low Dose] 81 mg PO DAILY Albuterol Sulfate [Proair Hfa] 1 - 2 puff INHALATION BID Albuterol Nebulized [Ventolin Nebulized] 2.5 mg INHALATION QID PRN PRN Reason: Dyspnea Ondansetron [Zofran] 4 mg PO Q8HR PRN PRN Reason: Nausea Gabapentin [Neurontin] 300 mg PO TID Furosemide [Lasix] 40 mg PO DAILY Nf Dilaudid 4.5 mg INTRATHECA CONTINUOUS Sennosides [Senna] 8.6 mg PO BID Atorvastatin [Lipitor] 10 mg PO HS Discharge Medication List Spironolactone [Aldactone] 25 mg PO DAILY 01/27/15 [History] Aspirin EC [Ecotrin Low Dose] 81 mg PO DAILY 01/20/18 [History] Albuterol Nebulized [Ventolin Nebulized] 2.5 mg INHALATION QID PRN 12/07/18 [History] Albuterol Sulfate [Proair Hfa] 1 - 2 puff INHALATION BID 12/07/18 [History] Furosemide [Lasix] 40 mg PO DAILY 02/06/19 [History] Gabapentin [Neurontin] 300 mg PO TID 02/06/19 [History] Ondansetron [Zofran] 4 mg PO Q8HR PRN 02/06/19 [History] Nf Dilaudid 4.5 mg INTRATHECA CONTINUOUS 02/07/19 [History] Atorvastatin [Lipitor] 10 mg PO HS 05/08/19 [History] Sennosides [Senna] 8.6 mg PO BID 05/08/19 [History]
[2019-05-09 11:21] VITALS: BP 130/82; PULSE 70; RESP 20
== END 2019-05-09 11:46 | disposition home or self-care (01) ==
LOC: ORWHC2ENDO 09:09
PROVIDERS: ATTEND Surgery Plastic and Reconstructive Surgery
DX: K21.9 Gastro-esophageal reflux disease without esophagitis (principal); R13.10 Dysphagia, unspecified; K29.01 Acute gastritis with bleeding; K29.51 Unspecified chronic gastritis with bleeding; K29.80 Duodenitis without bleeding; K22.8 Other specified diseases of esophagus; I10 Essential (primary) hypertension; E78.5 Hyperlipidemia, unspecified; J44.9 Chronic obstructive pulmonary disease, unspecified; Z86.718 Personal history of other venous thrombosis and embolism; G47.30 Sleep apnea, unspecified; G89.29 Other chronic pain; M54.9 Dorsalgia, unspecified; G62.9 Polyneuropathy, unspecified; E66.01 Morbid (severe) obesity due to excess calories; Z87.01 Personal history of pneumonia (recurrent); Z99.89 Dependence on other enabling machines and devices; Z87.19 Personal history of other diseases of the digestive system; Z99.81 Dependence on supplemental oxygen; Z79.82 Long term (current) use of aspirin; Z79.899 Other long term (current) drug therapy; Z79.891 Long term (current) use of opiate analgesic; Z88.8 Allergy status to other drugs, medicaments and biological substances; Z91.030 Bee allergy status; Z91.041 Radiographic dye allergy status; Z68.39 Body mass index [BMI] 39.0-39.9, adult; Z90.49 Acquired absence of other specified parts of digestive tract; Z98.890 Other specified postprocedural states; Z87.891 Personal history of nicotine dependence; Z80.0 Family history of malignant neoplasm of digestive organs
CPT/HCPCS: 43248; J2250; J3010; J2704; 43249

== ENCOUNTER 2021-07-31 06:11 | Day surgery (SDC) | payer MEDICARE ==
[~2021-07-31 06:11] MED LIST changes: +HEPARIN SODIUM,PORCINE/PF 5,000 UNIT/0.5 ML SYRINGE SQ PRN; -LACTATED RINGERS 1,000 ML IV SCH; -LIDOCAINE 1% 20 ML VIAL (10MG/ML) FOR IV START INTRADERMA PRN
[2021-07-31] MEDS ORDERED: ACETAMINOPHEN TAB 500 MG TAB PO PRN (07:08)
[2021-07-31] MEDS ORDERED: GABAPENTIN 300 MG CAP PO PRN (07:08)
[2021-07-31] MEDS ORDERED: TAMSULOSIN 0.4 MG CAP.ER.24H PO PRN (07:08)
[2021-07-31] MEDS ORDERED: ONDANSETRON 4 MG/2 ML VIAL ONE (07:12)
--- NOTE | 2021-07-31 07:12 | P.GSHP ---
History of Present Illness H&P Date: 07/31/21 CHIEF COMPLAINT: History of intra-abdominal adhesions HISTORY OF PRESENT ILLNESS: The patient is a 70-year-old male who presents with history of intra-abdominal adhesions from multiple prior surgeries including increasing abdominal pain. He presents for diagnostic laparoscopy including lysis of adhesions. PAST MEDICAL HISTORY: Please see list. PAST SURGICAL HISTORY: Please see list. MEDICATIONS: Please see list. ALLERGIES: Please see list. SOCIAL HISTORY: No illicit drug use FAMILY HISTORY: No reports of Crohn disease or ulcerative colitis. REVIEW OF ORGAN SYSTEMS: CONSTITUTIONAL: No reports of fevers or chills. GI: Denies any blood in stools or constipation. PHYSICAL EXAM: VITAL SIGNS: Stable GENERAL: Well-developed pleasant and in no acute distress. HEENT: No scleral icterus. Extraocular movements grossly intact. Moist buccal mucosa. NECK: Supple without lymphadenopathy. CHEST: Unlabored respirations. Equal bilateral excursions. CARDIOVASCULAR: Regular rate and rhythm. Distal 2+ pulses. ABDOMEN: Soft, diffuse abdominal tenderness. No peritonitis. MUSCULOSKELETAL: No clubbing, cyanosis, or edema. ASSESSMENT: 1. Diffuse abdominal pain. 2. History of multiple abdominal surgeries. 3. Intra-abdominal adhesions. PLAN: 1. Robotic lysis of adhesions were described in detail including risk of injury to the intestine, need for further surgery, and open technique. 2. DVT prophylaxis. 3. Antibiotic prophylaxis. Past Medical History Past Medical History: COPD, Deep Vein Thrombosis (DVT), GERD/Reflux, Hyperlipidemia, Hypertension, Pneumonia, Sleep Apnea/CPAP/BIPAP Additional Past Medical History / Comment(s): COVID IN JANUARY 2021. CHRONIC ABD PAIN HAS NOT FOUND DEFINITIVE CAUSE. Hx. of Diverticulitis, Pneumonia (2018), oxygen @ 4L ATC, chronic back pain, uses CPAP, hx. DVT leg , neuropathy feet, hx of pancreatitis. History of Any Multi-Drug Resistant Organisms: None Reported Past Surgical History: Appendectomy, Bowel Resection, Cholecystectomy Additional Past Surgical History / Comment(s): BOWEL RESECTION (NEVER HAD TEMP COLOSTOMY. Colonoscopy, exp. laparotomy, EGD, LASIK EYE SURGERY, pain pump Past Anesthesia/Blood Transfusion Reactions: No Reported Reaction Past Psychological History: No Psychological Hx Reported Smoking Status: Former smoker Past Alcohol Use History: Rare Additional Past Alcohol Use History / Comment(s): quit smoking 2000, smoked 1-2ppd since age of 17 Past Drug Use History: None Reported - Past Family History Brother(s) Family Medical History: Cancer Additional Family Medical History / Comment(s): Colon Medications and Allergies Home Medications Medication Instructions Recorded Confirmed Type Spironolactone [Aldactone] 25 mg PO QAM 01/27/15 07/31/21 History Furosemide [Lasix] 40 mg PO DAILY 02/06/19 07/31/21 History Gabapentin [Neurontin] 100 mg PO TID 02/06/19 07/31/21 History Nf Dilaudid 4.5 mg INTRATHECA CONTINUOUS 02/07/19 07/31/21 History Apixaban [Eliquis] 5 mg PO BID 07/29/21 07/31/21 History Fluticasone/Salmeterol [Advair 2 puff INHALATION BID PRN 07/29/21 07/31/21 History 250-50 Diskus] Isosorbide Mononitrate [Isosorbide 30 mg PO QAM 07/29/21 07/31/21 History Mononitrate ER] Omeprazole 40 mg PO QAM 07/29/21 07/31/21 History Umeclidinium [place] [Incruse 1 puff IN QAM 07/29/21 07/31/21 History Ellipta] lisinopriL [Zestril] 5 mg PO QAM 07/29/21 07/31/21 History oxyCODONE-APAP 10-325MG [Percocet 1 tab PO Q8H 07/29/21 07/31/21 History 10-325 mg] tiZANidine HCL 4 mg PO BID PRN 07/29/21 07/31/21 History Allergies Allergy/AdvReac Type Severity Reaction Status Date / Time bee pollen Allergy Anaphylaxis Verified 07/31/21 06:58 Iodinated Contrast Media Allergy Anaphylaxis Verified 07/31/21 06:58 [Iodinated Contrast Media - IV Dye] metformin AdvReac Abdominal Verified 07/31/21 06:58 Pain
[2021-07-31] MEDS ORDERED: LACTATED RINGERS 1,000 ML IV ONE ×2 (07:25→08:40)
[2021-07-31 07:28] LABS: Glucose,Whole Blood 140 mg/dL (75-99)
[2021-07-31] MEDS ORDERED: MIDAZOLAM 2 MG/2 ML VIAL IVP ONE (07:32)
[2021-07-31] MEDS ORDERED: DEXAMETHASONE SOD PHOSPHATE 4 MG/ML 1 ML VIAL IVP ONE (07:35)
[2021-07-31 07:38] LABS: Basophils # (A) 0.1 k/uL (0-0.2); Basophils % (A) 1 %; Eosinophils # (A) 0.2 k/uL (0-0.7); Eosinophils % (A) 2 %; HCT 41.5 % (39.0-53.0); HGB 13.5 gm/dL (13.0-17.5); Lymphocytes # (A) 3.2 k/uL (1.0-4.8); Lymphocytes % (A) 36 %; MCH 31.6 pg (25.0-35.0); MCHC 32.4 g/dL (31.0-37.0); MCV 97.4 fL (80.0-100.0); Mean Platelet Volume 7.4; Monocytes # (A) 0.7 k/uL (0-1.0); Monocytes % (A) 8 %; Neutrophils # (A) 4.4 k/uL (1.3-7.7); Neutrophils % (A) 50 %; Platelet Count 310 k/uL (150-450); RBC 4.27 m/uL (4.30-5.90); RDW 13.2 % (11.5-15.5); WBC 8.9 k/uL (3.8-10.6)
[2021-07-31 07:43] LABS: ALT 14 U/L (4-49); AST 23 U/L (17-59); African American GFR (CKD) >90 (>60 ml/min/1.73 sqM); Alkaline Phosphatase 68 U/L (38-126); Anion Gap 7 mmol/L; Blood Urea Nitrogen 14 mg/dL (9-20); Calcium 8.3 mg/dL (8.4-10.2); Carbon Dioxide 34 mmol/L (22-30); Chloride 98 mmol/L (98-107); Glucose 141 mg/dL (74-99); Non-African American GFR(CKD) >90 (>60 ml/min/1.73 sqM); Potassium 3.4 mmol/L (3.5-5.1); Sodium 139 mmol/L (137-145); Total Bilirubin 0.6 mg/dL (0.2-1.3); Total Protein 6.9 g/dL (6.3-8.2)
[2021-07-31] MEDS ORDERED: fentaNYL (PF) 50 MCG/ML 2 ML AMP ONE (07:48)
[2021-07-31] MEDS ORDERED: ePHEDrine 50 MG/ML 1 ML VIAL ONE (07:48)
[2021-07-31] MEDS ORDERED: NEOSTIGMINE 1 MG/ML 10 ML VIAL ONE (07:48)
[2021-07-31] MEDS ORDERED: GLYCOPYRROLATE 0.2 MG/ML 2 ML VIAL ONE (07:48)
[2021-07-31] MEDS ORDERED: ROCURONIUM 10 MG/ML (5 ML VIAL) IV ONE (07:48)
[2021-07-31] MEDS ORDERED: SUCCINYLCHOLINE CHLORIDE 100 MG/5 ML SYR IV ONE (07:48)
[2021-07-31] MEDS ORDERED: LIDOCAINE 2% INJ 20 MG/ML (2 ML VIAL) ONE (07:48)
[2021-07-31] MEDS ORDERED: PROPOFOL 10 MG/ML 20 ML VIAL IV ONE (07:48)
[2021-07-31] MEDS ORDERED: BUPIVACAIN-EPI 0.25%-1:200,000 30 ML VIAL SQ ONE (07:53)
--- NOTE | 2021-07-31 08:13 | P.ANPRN ---
Procedure Note - Anesthesia - Nerve Block Performed Bilateral Erector Spinae Single Time Out Performed: Yes Date of Procedure: 07/31/21 Procedure Start Time: : Procedure Stop Time: : Location of Patient: PreOp Indication: Acute Post-Operative Pain, Requested by Surgeon Sedation Type: Sedate with meaningful contact maintained Preparation: Sterile Prep, Sterile Dressing Position: Prone Catheter: None Needle Types: Facet Needle Gauge: 20 Ultrasound used to visualize needle placement: Yes Ultrasound used to observe medication spread: Yes Injectate: Other (see comment) (Ropivacaine 0.25% 30 ml + decadron 4 mg per side) Blood Aspirated: No Pain Paresthesia on Injection Noted: No Resistance on Injection: Normal Image Stored and Saved: Yes Events: Uneventful and Well Tolerated
[2021-07-31 09:56] VITALS: TEMP 97
--- NOTE | 2021-07-31 10:07 | P.OP ---
Date of Procedure: 07/31/21 Description of Procedure: SURGEON: JACLYN WARE MD PREOPERATIVE DIAGNOSES: 1. History of multiple abdominal surgeries including peritoneal adhesions 2. Chronic pain syndrome 3. Status post pain pump insertion, right lower quadrant 4. Morbid obesity due to excess calories, BMI 38.6 5. Congestive heart failure 6. Ischemic cardiomyopathy 7. Chronic anticoagulant use 8. Chronic obstructive pulmonary disease with dependence on oxygen 9. Neuropathy POSTOPERATIVE DIAGNOSES: 1. History of multiple abdominal surgeries including peritoneal adhesions 2. Chronic pain syndrome 3. Status post pain pump insertion, right lower quadrant 4. Morbid obesity due to excess calories, BMI 38.6 5. Congestive heart failure 6. Ischemic cardiomyopathy 7. Chronic anticoagulant use 8. Chronic obstructive pulmonary disease with dependence on oxygen 9. Neuropathy 10. Severe pelvic adhesions including intraloop adhesions of the pelvis. OPERATION: 1. Robotic-assisted da Sheila Xi laparoscopic extensive lysis of adhesions over 1.5 hr COMPLICATIONS: None. Anesthesia: GETA, local, abdominal wall block Estimated Blood Loss (ml): 5 Pathology: none sent Condition: stable Disposition: same day OPERATIVE FINDINGS: 1. Severe pelvic adhesions involving small bowel and interloop adhesions 2. Right upper quadrant right lower quadrant abdominal pain consistent with severe adhesive disease involving terminal ileum adherent to the right pelvis lysed 3. Adhesions along liver bed from cholecystectomy site lysed 4. Adhesions involving right lateral abdominal wall and hepatic flexure lysed 5. Deep intra-abdominal adhesions involving the mid jejunum adherent to the spine unable to lyse 6. Small bowel viable INDICATIONS: The patient is a 70-year-old male who with severe right upper quadrant right lower quadrant abdominal pain despite pain pump and history of chronic pain syndrome. Surgical intervention was described given his history of severe adhesive band disease. Informed consent was obtained. Robotic assisted laparoscopic approach was described. Benefits and risks of the procedure including but not limited to bleeding, infection, injury to the small bowel was described. Informed consent was obtained. DESCRIPTION OF PROCEDURE: Patient was brought to the operating room, placed in supine position. After general induction, the abdomen had been prepped and draped in standard sterile fashion. The robotic da Sheila XI system was primed. After a timeout protocol was performed, the patient had been prepped and draped in standard sterile fashion. The robot was docked along the right lateral abdomen. The patient was repositioned in Trendelenburg position of 7- degrees. A 5 mm 0 degrees laparoscopic trocar entry was performed along the left upper quadrant. The abdomen was insufflated to 15 mmHg pressure which he tolerated well. Diagnostic laparoscopy demonstrated severe intra-abdominal adhesions involving the lower midline. The small bowel was unremarkable without evidence of dilation or suggestion of obstruction. No injury to the bowel, viscera or mesentery was identified. Next, three 8 mm robotic ports were placed along the left lateral abdominal wall. Please note that the ports were placed at least 10 cm away from the target anatomy. Instruments were interchanged using only 3 ports for a grasper, vessel sealer. Instruments were interchanged by the recruitment and outreach assistant including Bovie cautery scissors. I had sat at the console. Extensive lysis of adhesions over 1 hour was performed. Carefully the adhesions were taken down to address the lower midline to pelvis. Along the right upper quadrant, adhesions of the deflected flexure to the abdominal wall was lysed. Separately the liver bed of omentum was lysed consistent patient's pain. The small bowel was investigated where the terminal ileum was caught and densely adherent to the right pelvis. Careful lysis of adhesions was performed to release the small intestine without enterotomy. Multiple intraloop adhesions were carefully lysed without injury. At the mid jejunum, an adhesive band and cystic adherent to the retroperitoneum was unable to lyse due to its location. The robot was undocked. All pneumoperitoneum and instruments were evacuated from the abdominal cavity. The incisions were reapproximated using 4-0 Monocryl in an interrupted subcuticular fashion. Please note along the trocar sites, local anesthetic was placed as a field block prior to insertion of all instruments. Liquid glue was applied to the skin. At the end of the procedure needle, sponge, and instrument count had been verified correct by the neurosurgical nurse practitioner. The patient was transferred to postanesthesia care unit in stable condition. Intraoperative images including findings were described to the patients family. Plan - Discharge Summary Discharge Rx Participant: No New Discharge Prescriptions: New Simethicone [Gas-X] 125 mg PO AC-TID PRN #20 capsule PRN Reason: Pain Acetaminophen Tab [Tylenol Tab] 500 mg PO Q6H PRN #30 tablet PRN Reason: Pain Continue Spironolactone [Aldactone] 25 mg PO QAM Gabapentin [Neurontin] 100 mg PO TID Furosemide [Lasix] 40 mg PO DAILY Nf Dilaudid 4.5 mg INTRATHECA CONTINUOUS tiZANidine HCL 4 mg PO BID PRN PRN Reason: Pain lisinopriL [Zestril] 5 mg PO QAM Omeprazole 40 mg PO QAM Umeclidinium [place] [Incruse Ellipta] 1 puff IN QAM Apixaban [Eliquis] 5 mg PO BID oxyCODONE-APAP 10-325MG [Percocet 10-325 mg] 1 tab PO Q8H Isosorbide Mononitrate [Isosorbide Mononitrate ER] 30 mg PO QAM Fluticasone/Salmeterol [Advair 250-50 Diskus] 2 puff INHALATION BID PRN PRN Reason: Shortness Of Breath Or Wheezing Discharge Medication List Spironolactone [Aldactone] 25 mg PO QAM 01/27/15 [History] Furosemide [Lasix] 40 mg PO DAILY 02/06/19 [History] Gabapentin [Neurontin] 100 mg PO TID 02/06/19 [History] Nf Dilaudid 4.5 mg INTRATHECA CONTINUOUS 02/07/19 [History] Apixaban [Eliquis] 5 mg PO BID 07/29/21 [History] Fluticasone/Salmeterol [Advair 250-50 Diskus] 2 puff INHALATION BID PRN 07/29/21 [History] Isosorbide Mononitrate [Isosorbide Mononitrate ER] 30 mg PO QAM 07/29/21 [Hist ory] Omeprazole 40 mg PO QAM 07/29/21 [History] Umeclidinium [place] [Incruse Ellipta] 1 puff IN QAM 07/29/21 [History] lisinopriL [Zestril] 5 mg PO QAM 07/29/21 [History] oxyCODONE-APAP 10-325MG [Percocet 10-325 mg] 1 tab PO Q8H 07/29/21 [History] tiZANidine HCL 4 mg PO BID PRN 07/29/21 [History] Acetaminophen Tab [Tylenol Tab] 500 mg PO Q6H PRN #30 tablet 07/31/21 [Rx] Simethicone [Gas-X] 125 mg PO AC-TID PRN #20 capsule 07/31/21 [Rx] Follow up Appointment(s)/Referral(s): Jaclyn Ware MD [STAFF PHYSICIAN] - 08/04/21 (Telehealth) Patient Instructions/Handouts: Lysis of Abdominal Adhesions (DC), *[facility] - Managing Your Pain After Surgery Without Opioids Activity/Diet/Wound Care/Special Instructions: START BLOOD THINNER 08/04/21. Liquid diet today PLEASE NOTIFY PAIN SPECIALIST FOR MORE NARCOTICS IF NEEDED No lifting over 10 pounds in 2 weeks until August 14. May shower. No bath tub soaks for two weeks until August 14. Diet as tolerated. Use Tylenol, simethicone scheduled for the next 24-48 hours for best pain relief. Use ice along incisions for today to prevent swelling. Discharge Disposition: HOME SELF-CARE
[2021-07-31 10:27] VITALS: RESP 16
[2021-07-31 12:05] VITALS: BP 118/78; PULSE 75
== END 2021-07-31 12:06 | disposition home or self-care (01) ==
LOC: OR 06:11
PROVIDERS: ATTEND Surgery Plastic and Reconstructive Surgery
DX: K66.0 Peritoneal adhesions (postprocedural) (postinfection) (principal); J44.9 Chronic obstructive pulmonary disease, unspecified; Z86.718 Personal history of other venous thrombosis and embolism; K21.9 Gastro-esophageal reflux disease without esophagitis; E78.5 Hyperlipidemia, unspecified; G47.33 Obstructive sleep apnea (adult) (pediatric); Z87.01 Personal history of pneumonia (recurrent); Z86.16 Personal history of COVID-19; G89.4 Chronic pain syndrome; M54.9 Dorsalgia, unspecified; Z87.19 Personal history of other diseases of the digestive system; Z99.81 Dependence on supplemental oxygen; Z90.49 Acquired absence of other specified parts of digestive tract; Z98.890 Other specified postprocedural states; Z87.891 Personal history of nicotine dependence; E66.01 Morbid (severe) obesity due to excess calories; Z68.38 Body mass index [BMI] 38.0-38.9, adult; I25.5 Ischemic cardiomyopathy; Z96.89 Presence of other specified functional implants; I11.0 Hypertensive heart disease with heart failure; Z82.49 Family history of ischemic heart disease and other diseases of the circulatory system; Z83.3 Family history of diabetes mellitus; G62.9 Polyneuropathy, unspecified; Z79.01 Long term (current) use of anticoagulants; Z79.899 Other long term (current) drug therapy; Z91.048 Other nonmedicinal substance allergy status; Z79.51 Long term (current) use of inhaled steroids; Z88.8 Allergy status to other drugs, medicaments and biological substances; Z91.030 Bee allergy status
CPT/HCPCS: 44180; 64488; 80053; 85025; J2250; J1100; J2710; J0690; J2405; J3010; J0330; J2704; J1644; J2001

== ENCOUNTER 2022-06-24 13:27 | Observation (INO) | payer MEDICARE ==
--- NOTE | 2022-06-24 14:03 | ED ---
General Adult HPI - General Chief complaint: Shortness of Breath Stated complaint: MANNY Time Seen by Provider: 06/24/22 13:35 Source: patient, family, RN notes reviewed, old records reviewed Mode of arrival: wheelchair Limitations: no limitations - History of Present Illness Initial comments: This is a 71-year-old male who presents to the emergency department with past medical history significant for COPD diabetes hypertension or stroke. Patient comes in stating that he recently had a barium swallow 16 days ago and since then he believes that he may have swallowed some barium into his lungs. Patient states is not coughing or having any fever but he is becoming more more short of breath particularly with exertion. Patient states she's also had quite a bit of chest heaviness like someone sitting on his chest for the last week. Patient denies any palpitations. Patient denies any diaphoretic episodes. Patient states he has had no increased swelling to the legs or calf tenderness but he does state that he's had a history of congestive heart failure. - Related Data Home Medications Medication Instructions Recorded Confirmed Spironolactone [Aldactone] 25 mg PO DAILY 01/27/15 06/24/22 Furosemide [Lasix] 40 mg PO DAILY 02/06/19 06/24/22 Omeprazole 40 mg PO DAILY 07/29/21 06/24/22 lisinopriL [Zestril] 5 mg PO DAILY 07/29/21 06/24/22 oxyCODONE-APAP 10-325MG [Percocet 1 tab PO Q8H 07/29/21 06/24/22 10-325 mg] tiZANidine HCL 4 mg PO BID PRN 07/29/21 06/24/22 Albuterol Sulfate [Albuterol 1 puff PO RT-BID 06/24/22 06/24/22 Sulfate Hfa] Atorvastatin [Lipitor] 20 mg PO HS 06/24/22 06/24/22 Dextroamphetamine/Amphetamine 30 mg PO BID@0900,1600 06/24/22 06/24/22 [Adderall] Dicyclomine [Bentyl] 20 mg PO QID 06/24/22 06/24/22 Ipratropium Nebulized [Atrovent 0.5 mg INHALATION RT-QID 06/24/22 06/24/22 Nebulized 0.2 MG/ML] Isosorbide Dinitrate 30 mg PO DAILY 06/24/22 06/24/22 Allergies Allergy/AdvReac Type Severity Reaction Status Date / Time bee pollen Allergy Anaphylaxis Verified 06/24/22 15:21 Iodinated Contrast Media Allergy Anaphylaxis Verified 06/24/22 15:21 [Iodinated Contrast Media - IV Dye] metformin AdvReac Abdominal Verified 06/24/22 15:21 Pain Review of Systems ROS Statement: Those systems with pertinent positive or pertinent negative responses have been documented in the HPI. ROS Other: All systems not noted in ROS Statement are negative. Past Medical History Past Medical History: COPD, Deep Vein Thrombosis (DVT), GERD/Reflux, Hyperlipidemia, Hypertension, Pneumonia, Sleep Apnea/CPAP/BIPAP Additional Past Medical History / Comment(s): COVID IN JANUARY 2021. CHRONIC ABD PAIN HAS NOT FOUND DEFINITIVE CAUSE. Hx. of Diverticulitis, Pneumonia (2017 ), oxygen @ 4L ATC, chronic back pain, uses CPAP, hx. DVT leg , neuropathy feet, hx of pancreatitis. History of Any Multi-Drug Resistant Organisms: None Reported Past Surgical History: Appendectomy, Bowel Resection, Cholecystectomy Additional Past Surgical History / Comment(s): BOWEL RESECTION (NEVER HAD TEMP COLOSTOMY. Colonoscopy, exp. laparotomy, EGD, LASIK EYE SURGERY, pain pump Past Anesthesia/Blood Transfusion Reactions: No Reported Reaction Past Psychological History: No Psychological Hx Reported Smoking Status: Former smoker Past Alcohol Use History: Rare Past Drug Use History: None Reported - Past Family History Brother(s) Family Medical History: Cancer Additional Family Medical History / Comment(s): Colon General Exam - General Exam Comments Initial Comments: GENERAL: Patient is well-developed and well-nourished. Patient is nontoxic and well- hydrated and is in mild distress. ENT: Neck is soft and supple. No significant lymphadenopathy is noted. Oropharynx is clear. Moist mucous membranes. Neck has full range of motion without eliciting any pain. EYES: The sclera were anicteric and conjunctiva were pink and moist. Extraocular movements were intact and pupils were equal round and reactive to light. Eyelids were unremarkable. PULMONARY: Unlabored respirations. Good breath sounds bilaterally. No audible rales rhonchi or wheezing was noted. CARDIOVASCULAR: There is a regular rate and rhythm without any murmurs gallops or rubs. ABDOMEN: Soft and nontender with normal bowel sounds. SKIN: Skin is clear with no lesions or rashes and otherwise unremarkable. NEUROLOGIC: Patient is alert and oriented x3. Cranial nerves II through XII are grossly intact. Motor and sensory are also intact. Normal speech, volume and content. Symmetrical smile. MUSCULOSKELETAL: Normal extremities with adequate strength and full range of motion. LYMPHATICS: No significant lymphadenopathy is noted PSYCHIATRIC: Normal psychiatric evaluation. Limitations: no limitations Course Vital Signs 06/24/22 06/24/22 13:31 15:29 Temperature 97.9 F Pulse Rate 91 92 Respiratory 20 18 Rate Blood Pressure 111/72 102/63 O2 Sat by Pulse 93 L 98 Oximetry Medical Decision Making - Medical Decision Making EKG was interpreted by myself shows a sinus rhythm at 90 bpm IN interval is 130 QRS is 114 QT interval is 368 QTC is 4:15. Patient's EKG shows no ST segment elevation or depression Was pt. sent in by a medical professional or institution (, PA, COOL ROOFING INSTALLER, urgent care, hospital, or long-term...) When possible be specific @ -No Did you speak to anyone other than the patient for history (EMS, parent, family, police, friend...)? What history was obtained from this source @ -No Did you review nursing and triage notes (agree or disagree)? Why? @ -I reviewed and agree with nursing and triage notes Were old charts reviewed (outside hosp., previous admission, EMS record, old EKG, old radiological studies, urgent care reports/EKG's, long-term records)? Report findings @ -Prior lab work was reviewed as were charts Differential Diagnosis (chest pain, altered mental status, abdominal pain women, abdominal pain men, vaginal bleeding, weakness, fever, dyspnea, syncope, headache, dizziness, GI bleed, back pain, seizure, CVA, palpatations, mental health, musculoskeletal)? @ -Differential Chest Pain: Stable Angina, Unstable Angina, STEMI, NSTEMI Aortic Dissection, Pneumothorax, Musculoskeletal, Esophageal Spasm GERD, Cholecystitis, Pancreatitis, Zoster, this is not meant to be an all-inclusive list. EKG interpreted by me (3pts min.). @ -As above X-rays interpreted by me (1pt min.). @ -Chest x-ray was interpreted by myself that shows no acute abnormality CT interpreted by me (1pt min.). @ -None done U/S interpreted by me (1pt. min.). @ -None done What testing was considered but not performed or refused? (CT, X-rays, U/S, labs)? Why? @ -None What meds were considered but not given or refused? Why? @ -None Did you discuss the management of the patient with other professionals (professionals i.e. , PA, COOL ROOFING INSTALLER, lab, RT, psych nurse, manager social work, cloth pattern maker, teacher, aoc airspace control officer, pillowcase maker)? Give summary @ -I spoke with Dr. Nicole he agreed to admit the patient Was smoking cessation discussed for >3mins.? @ -No Was critical care preformed (if so, how long)? @ -No Were there social determinants of health that impacted care today? How? (Homelessness, low income, unemployed, alcoholism, drug addiction, transportation, low edu. Level, literacy, decrease access to med. care, [facility], rehab)? @ -No Was there de-escalation of care discussed even if they declined (Discuss DNR or withdrawal of care, Hospice)? DNR status @ -No What co-morbidities impacted this encounter? (DM, HTN, Smoking, COPD, CAD, C ancer, CVA, ARF, Chemo, Hep., AIDS, mental health diagnosis, sleep apnea, morbid obesity)? @ -None Was patient admitted / discharged? Hospital course, mention meds given and route, prescriptions, significant lab abnormalities, going to OR and other pertinent info. @ -Patient had chest x-ray showed no acute abnormality. Patient had no white count. Patient was in no respiratory distress. Patient continued to have intermittent chest pain. I wrote admitting orders I admitted the patient and I consult cardiology Undiagnosed new problem with uncertain prognosis? @ -No Drug Therapy requiring intensive monitoring for toxicity (Heparin, Nitro, Insulin, Cardizem)? @ -No Were any procedures done? @ -No Diagnosis/symptom? @ -Chest pain Acute, or Chronic, or Acute on Chronic? @ -Acute Uncomplicated (without systemic symptoms) or Complicated (systemic symptoms)? @ -Complicated Side effects of treatment? @ -No Exacerbation, Progression, or Severe Exacerbation? @ -No Poses a threat to life or bodily function? How? (Chest pain, USA, MT, pneumonia, PE, COPD, DKA, ARF, appy, cholecystitis, CVA, Diverticulitis, Homicidal, Suicidal, threat to staff... and all critical care pts) @ -No - Lab Data Result diagrams: 06/24/22 14:02 06/24/22 14:02 Lab Results 06/24/22 06/24/22 06/24/22 Range/Units 14:02 14:02 14:02 WBC 7.0 (3.8-10.6) k/uL RBC 4.56 (4.30-5.90) m/uL Hgb 14.2 (13.0-17.5) gm/dL Hct 42.6 (39.0-53.0) % MCV 93.4 (80.0-100.0) fL MCH 31.2 (25.0-35.0) pg MCHC 33.4 (31.0-37.0) g/dL RDW 13.0 (11.5-15.5) % Plt Count 208 (150-450) k/uL MPV 8.0 Neutrophils % 61 % Lymphocytes % 29 % Monocytes % 5 % Eosinophils % 3 % Basophils % 0 % Neutrophils # 4.3 (1.3-7.7) k/uL Lymphocytes # 2.0 (1.0-4.8) k/uL Monocytes # 0.4 (0-1.0) k/uL Eosinophils # 0.2 (0-0.7) k/uL Basophils # 0.0 (0-0.2) k/uL PT 10.8 (9.0-12.0) sec INR 1.0 (<1.2) APTT 24.2 (22.0-30.0) sec Sodium 136 L (137-145) mmol/L Potassium 4.4 (3.5-5.1) mmol/L Chloride 100 (98-107) mmol/L Carbon Dioxide 29 (22-30) mmol/L Anion Gap 7 mmol/L BUN 17 (9-20) mg/dL Creatinine 0.45 L (0.66-1.25) mg/dL Est GFR (CKD-EPI)AfAm >90 (>60 ml/min/1.73 sqM) Est GFR (CKD-EPI)NonAf >90 (>60 ml/min/1.73 sqM) Glucose 263 H (74-99) mg/dL Plasma Lactic Acid Kamran (0.7-2.0) mmol/L Calcium 8.6 (8.4-10.2) mg/dL Magnesium 1.7 (1.6-2.3) mg/dL Total Bilirubin 0.6 (0.2-1.3) mg/dL AST 23 (17-59) U/L ALT 19 (4-49) U/L Alkaline Phosphatase 72 (38-126) U/L Troponin I (0.000-0.034) ng/mL NT-Pro-B Natriuret Pep pg/mL Total Protein 6.6 (6.3-8.2) g/dL Albumin 3.7 (3.5-5.0) g/dL Influenza Type A (PCR) (Not Detectd) Influenza Type B (PCR) (Not Detectd) RSV (PCR) (Not Detectd) SARS-CoV-2 (PCR) (Not Detectd) 06/24/22 06/24/22 06/24/22 Range/Units 14:02 14:02 14:02 WBC (3.8-10.6) k/uL RBC (4.30-5.90) m/uL Hgb (13.0-17.5) gm/dL Hct (39.0-53.0) % MCV (80.0-100.0) fL MCH (25.0-35.0) pg MCHC (31.0-37.0) g/dL RDW (11.5-15.5) % Plt Count (150-450) k/uL MPV Neutrophils % % Lymphocytes % % Monocytes % % Eosinophils % % Basophils % % Neutrophils # (1.3-7.7) k/uL Lymphocytes # (1.0-4.8) k/uL Monocytes # (0-1.0) k/uL Eosinophils # (0-0.7) k/uL Basophils # (0-0.2) k/uL PT (9.0-12.0) sec INR (<1.2) APTT (22.0-30.0) sec Sodium (137-145) mmol/L Potassium (3.5-5.1) mmol/L Chloride (98-107) mmol/L Carbon Dioxide (22-30) mmol/L Anion Gap mmol/L BUN (9-20) mg/dL Creatinine (0.66-1.25) mg/dL Est GFR (CKD-EPI)AfAm (>60 ml/min/1.73 sqM) Est GFR (CKD-EPI)NonAf (>60 ml/min/1.73 sqM) Glucose (74-99) mg/dL Plasma Lactic Acid Kamran 1.9 (0.7-2.0) mmol/L Calcium (8.4-10.2) mg/dL Magnesium (1.6-2.3) mg/dL Total Bilirubin (0.2-1.3) mg/dL AST (17-59) U/L ALT (4-49) U/L Alkaline Phosphatase (38-126) U/L Troponin I <0.012 (0.000-0.034) ng/mL NT-Pro-B Natriuret Pep 94 pg/mL Total Protein (6.3-8.2) g/dL Albumin (3.5-5.0) g/dL Influenza Type A (PCR) (Not Detectd) Influenza Type B (PCR) (Not Detectd) RSV (PCR) (Not Detectd) SARS-CoV-2 (PCR) (Not Detectd) 06/24/22 Range/Units 15:29 WBC (3.8-10.6) k/uL RBC (4.30-5.90) m/uL Hgb (13.0-17.5) gm/dL Hct (39.0-53.0) % MCV (80.0-100.0) fL MCH (25.0-35.0) pg MCHC (31.0-37.0) g/dL RDW (11.5-15.5) % Plt Count (150-450) k/uL MPV Neutrophils % % Lymphocytes % % Monocytes % % Eosinophils % % Basophils % % Neutrophils # (1.3-7.7) k/uL Lymphocytes # (1.0-4.8) k/uL Monocytes # (0-1.0) k/uL Eosinophils # (0-0.7) k/uL Basophils # (0-0.2) k/uL PT (9.0-12.0) sec INR (<1.2) APTT (22.0-30.0) sec Sodium (137-145) mmol/L Potassium (3.5-5.1) mmol/L Chloride (98-107) mmol/L Carbon Dioxide (22-30) mmol/L Anion Gap mmol/L BUN (9-20) mg/dL Creatinine (0.66-1.25) mg/dL Est GFR (CKD-EPI)AfAm (>60 ml/min/1.73 sqM) Est GFR (CKD-EPI)NonAf (>60 ml/min/1.73 sqM) Glucose (74-99) mg/dL Plasma Lactic Acid Kamran (0.7-2.0) mmol/L Calcium (8.4-10.2) mg/dL Magnesium (1.6-2.3) mg/dL Total Bilirubin (0.2-1.3) mg/dL AST (17-59) U/L ALT (4-49) U/L Alkaline Phosphatase (38-126) U/L Troponin I (0.000-0.034) ng/mL NT-Pro-B Natriuret Pep pg/mL Total Protein (6.3-8.2) g/dL Albumin (3.5-5.0) g/dL Influenza Type A (PCR) Not Detected (Not Detectd) Influenza Type B (PCR) Not Detected (Not Detectd) RSV (PCR) Not Detected (Not Detectd) SARS-CoV-2 (PCR) Not Detected (Not Detectd) Disposition Clinical Impression: Chest pain, Dyspnea Disposition: ADMITTED IP TO THIS HOSP Referrals: Patrick Nicole MD [Primary Care Provider] - 1-2 days Time of Disposition: 16:28
--- NOTE | 2022-06-24 14:18 | XR ---
EXAMINATION TYPE: XR chest 2V DATE OF EXAM: 06/24/2022 2:13 PM COMPARISON: Chest radiographs from chest radiograph 03/22/2022 TECHNIQUE: XR chest 2V Frontal and lateral views of the chest. CLINICAL INDICATION:Male, 71 years old with history of difficulty breathing; FINDINGS: Lungs/Pleura: No pleural effusion or pneumothorax. Basilar patchy airspace opacities are again identi fied and have not significantly changed from prior examination. Background emphysematous changes. Pulmonary vascularity: Unremarkable. Heart/mediastinum: Cardiomediastinal silhouette is unremarkable. Musculoskeletal: Multiple level degenerative disc disease changes seen throughout the spine. IMPRESSION: Background COPD changes with similar bibasilar patchy airspace opacities. This could represent pneumo elmer versus pulmonary fibrotic changes.
[2022-06-24 14:21] LABS: Basophils % (A) 0 %; Eosinophils # (A) 0.2 k/uL (0-0.7); Eosinophils % (A) 3 %; HCT 42.6 % (39.0-53.0); HGB 14.2 gm/dL (13.0-17.5); Lymphocytes % (A) 29 %; MCH 31.2 pg (25.0-35.0); MCHC 33.4 g/dL (31.0-37.0); MCV 93.4 fL (80.0-100.0); Monocytes # (A) 0.4 k/uL (0-1.0); Monocytes % (A) 5 %; Neutrophils # (A) 4.3 k/uL (1.3-7.7); Neutrophils % (A) 61 %; Platelet Count 208 k/uL (150-450); RBC 4.56 m/uL (4.30-5.90)
[2022-06-24 14:31] LABS: ALT 19 U/L (4-49); AST 23 U/L (17-59); African American GFR (CKD) >90 (>60 ml/min/1.73 sqM); Albumin 3.7 g/dL (3.5-5.0); Alkaline Phosphatase 72 U/L (38-126); Anion Gap 7 mmol/L; Blood Urea Nitrogen 17 mg/dL (9-20); Calcium 8.6 mg/dL (8.4-10.2); Carbon Dioxide 29 mmol/L (22-30); Chloride 100 mmol/L (98-107); Glucose 263 mg/dL (74-99); Magnesium 1.7 mg/dL (1.6-2.3); Non-African American GFR(CKD) >90 (>60 ml/min/1.73 sqM); Potassium 4.4 mmol/L (3.5-5.1); Sodium 136 mmol/L (137-145); Total Bilirubin 0.6 mg/dL (0.2-1.3); Total Protein 6.6 g/dL (6.3-8.2)
[2022-06-24 14:59] LABS: Partial Thromboplastin Time 24.2 sec (22.0-30.0); Prothrombin Time 10.8 sec (9.0-12.0)
[2022-06-24] MEDS ORDERED: NITROGLYCERIN SL TABS 0.4 MG TAB SUBLINGUAL PRN (16:29)
[2022-06-24] MEDS ORDERED: ASPIRIN 81 MG PO STA (16:29)
[2022-06-24] MEDS ORDERED: tiZANidine 4 MG TAB PO PRN (17:25)
[2022-06-24] MEDS: NITROGLYCERIN OINT 1 INCH/GM PACKET TOPICAL SCH (18:02)
[2022-06-24] MEDS: HEPARIN SODIUM,PORCINE/PF 5,000 UNIT/0.5 ML SYRINGE SQ SCH (18:04)
[2022-06-24] MEDS: DICYCLOMINE 20 MG TAB PO SCH ×2 (18:04→22:02)
[2022-06-24] MEDS: IPRATROPIUM 0.5 MG/2.5 ML NEBU INHALATION SCH (18:49)
[2022-06-24] MEDS ORDERED: ATORVASTATIN 20 MG TAB PO SCH (21:00)
[2022-06-24] MEDS: oxyCODONE-APAP 10-325MG 1 EACH TAB PO SCH (22:00)
[2022-06-24 22:02] LABS: Glucose,Whole Blood 187 mg/dL (70-110)
[2022-06-25] MEDS: NITROGLYCERIN OINT 1 INCH/GM PACKET TOPICAL SCH (00:07)
[2022-06-25] MEDS: HEPARIN SODIUM,PORCINE/PF 5,000 UNIT/0.5 ML SYRINGE SQ SCH ×4 (00:07→23:16)
--- NOTE | 2022-06-25 01:45 | HP ---
HISTORY AND PHYSICAL The patient admitted through the emergency room. CHIEF COMPLAINT: The patient presented to the ER at [facility] with shortness of breath and chest pain across his chest. HISTORY OF PRESENT ILLNESS: A 71-year-old white male presented to the emergency room department with a history of significant chest pain across the chest started yesterday and did become intermittent. No radiation to the neck or the arm, but across the chest and heavy weight on the chest, some sternal discomfort and intermittent. His got concerned and he got concerned and came to the hospital at [facility]. PAST MEDICAL HISTORY: He had underlying history of COPD and emphysema, has been treated by Dr. Tinoco. He had history also of multiple surgeries of the abdomen with adhesions and he has been followed by Dr. Ware and he has plan to be seen by Dr. Ware approximately the 1st week of July. The patient has also history of underlying chronic respiratory failure and on oxygen supplementation. He had a gallbladder surgery that was done in the past. He had history of diabetes mellitus type 2 and he had high risk of coronary artery disease. He denied any diaphoresis, but this has become progressively worse. History of congestive heart failure in the past as well and history of peripheral edema. He was on chronic pain and he has been monitored by Dr. Thao, the [facility] in [place]. MEDICATIONS: He was on, 1. Spironolactone 25 mg once daily. 2. Furosemide 40 mg daily. 3. Omeprazole 40 mg daily. 4. Lisinopril 5 mg daily. 5. Oxycodone 10/325. 6. Percocet he takes tablet every 8 hours plus that he had a pump placed on the right mid abdomen and it is a pump with Dilaudid. 7. He also treated with albuterol inhaler sulfate 2 puffs q.i.d. 8. He has been also on tizanidine/HCL and he was taking 4 mg p.o. b.i.d. 9. He was also on Adderall 30 mg p.o. b.i.d. and dicyclomine which is equal to Bentyl and he was on 20 mg q.i.d. 10.He is on ipratropium/Atrovent 2 mg/mL and he take 0.5 mg inhalation 4 times a day. 11.He is on isosorbide mononitrate 30 mg daily. ALLERGIES: He has an allergy to bee and pollen with anaphylaxis. He also has allergy to iodinated contrast media, IV dye, and has adverse effect with metformin for his diabetes causing abdominal pain. REVIEW OF SYSTEMS: NEUROPSYCHIATRY: He is conscious, alert, has no blurred vision. No falling attacks. CARDIOVASCULAR: He had the pain and pressure as somebody sitting on his chest clinically and across his chest, chest burning or discomfort. Could not express more than that except he attributed as pain. RESPIRATORY: He had no cough or expectoration. However, he had in the chest x-ray done in the ER, basilar infiltrate, and we will consult Cardiology as well as the Pulmonary and Critical Care, Dr. Tinoco. GI: No nausea, vomiting, diarrhea, or constipation. : No dysuria or hematuria. MUSCULOSKELETAL: He had arthritis, but not causing any major pain at this time . NEURO: No history of stroke in the past. PAST MEDICAL HISTORY: He had history of COPD, emphysema, hyperlipidemia, hypertension, pneumonia, and sleep apnea and he is on the CPAP. He had history of DVT in the past, GERD with reflux and also recently he had a test for the esophagus and modified barium swallow when was done in the [facility] was indicating that he had some motility problem with the esophagus as well as he has aspiration. He denied any aspiration, but he stated that he does not have heartburn and no coughing or choking with meals. He is currently on oxygen with also on CPAP. He has as well history of pancreatitis and neuropathy of the feet secondary to diabetes. PAST SURGICAL HISTORY: He had appendectomy, bowel resection, and cholecystectomy. At the time of the surgery on the bowel, he had a colostomy and reversed subsequently with exploratory laparotomy. He had LASIK eye surgery and pain pump placement. SOCIAL HISTORY: He is a former smoker. FAMILY HISTORY: Cancer. PHYSICAL EXAMINATION: GENERAL: The patient appeared well developed, nourished, hydrated, but his chest pain that was a concern across the chest. HEENT: The head was normocephalic, atraumatic. Oropharynx, he had upper dentures. The lower, he has only a few teeth in the right side of the lower jaw. He stated that able to eat and swallow. The pupil was equal reactive and he has normal conjunctiva and no icterus. Normal eye movement. NECK: Supple. No JVD. No thyromegaly. No lymphadenopathy. Trachea midline. PULMONARY: He had history of increased hyperinflation of the lung with emphysema. He had no wheezes, no rhonchi with decreased air entry on the lower bases. CARDIOVASCULAR: He had regular sinus rhythm and no appreciated murmur on examination. ABDOMEN: Obese, positive bowel sounds and has multiple scars. SKIN: No lesions. NEUROLOGIC: Stable and he is oriented. Cranial nerves were intact and he has normal speech and no evidence of stroke in the past. MUSCULOSKELETAL: He used to have edema of the lower extremities; however, was managed and he does not have edema and the known lymphadenopathy. VITAL SIGNS: Temperature 97.9 F oral and pulse rate 91 to 92, his respiratory rate 20 to 18 per minute. His blood pressure is fairly well controlled, 111/72 and 102/63 with the oxygen saturation 93% to 98% by the oximeter in the ER. The patient was seen and evaluated in the emergency room and in the module 11. DIAGNOSTIC STUDIES: His EKG was normal sinus rhythm with no acute ST-segment elevation or depression. LABORATORY DATA: Laboratory indicating that white count was 7 with hemoglobin 14.2 and hematocrit 42.6, platelet count is 208 and normal differential. The ProTime is 10.8, and INR 1, and the PTT 24.2. His chemistry indicating sodium 136 with a normal 137, potassium 4.4, chloride 100, carbon dioxide 29, and anion gap 7. BUN 17 and creatinine 0.45 with the EGFR for non- more than 90. His glucose is 263. I do not have an idea when he ate last time, but he is diabetic anyway, and calcium 8.6 and magnesium 1.7, total bilirubin 0.6, AST 23, ALT 19, and alkaline phosphatase 72, total protein 6.6, and albumin 3.7. He had also lactic acid venous 1.9, which is normal. The troponin 1st reading was less than 0.012 and his proBNP is 94 with no evidence of congestive heart failure. We have the results on the influenza A PCR. Influenza B PCR not detected and we have RSV not detected and the COVID test not detected. Because of his disposition, per the ER as they called me to admit the patient with the underlying shortness of breath, dyspnea, chest pain across the chest and which has been progressive since yesterday with no radiation, but it is substernal and heavy feeling on his chest. ASSESSMENT: Chest pain and underlying history of upper GI indicating possibility of aspiration and underlying x-ray showing the infiltrate and we will be consulting. PLAN: Consulting Cardiology as well as the Pulmonary and Critical Care, Dr. Tinoco. Further evaluation depend on the patient's condition and progression. We are also requesting the results from [facility] of the esophageal to be obtained on to the chart. MMODL / IJN: [id number] /
[2022-06-25 07:56] LABS: Glucose,Whole Blood 140 mg/dL (70-110)
[2022-06-25] MEDS ORDERED: ASPIRIN 325 MG TAB PO SCH (09:00)
[2022-06-25] MEDS: FUROSEMIDE 40 MG TAB PO SCH (09:17)
[2022-06-25] MEDS: ISOSORBIDE MONONITRATE ER 30 MG TAB.ER.24H PO SCH (09:18)
[2022-06-25] MEDS: DICYCLOMINE 20 MG TAB PO SCH ×4 (09:18→20:25)
[2022-06-25] MEDS: lisinopriL 5 MG TAB PO SCH (09:19)
[2022-06-25] MEDS: SPIRONOLACTONE 25 MG TAB PO SCH (09:19)
[2022-06-25] MEDS: oxyCODONE-APAP 10-325MG 1 EACH TAB PO SCH ×3 (09:20→23:16)
[2022-06-25] MEDS: IPRATROPIUM 0.5 MG/2.5 ML NEBU INHALATION SCH ×4 (09:25→18:23)
[2022-06-25] MEDS: NON FORMULARY DRUG (Dextroamphetamine/Amphetamine [Adderall] 30 MG Tablet) PO SCH ×2 (09:28→16:11)
[2022-06-25 09:46] LABS: Chol/HDL Ratio 2.96 Ratio; LDL Cholesterol,Calculated 88.2 mg/dL (0.0-131.0)
--- NOTE | 2022-06-25 10:46 | P.CRDCN ---
History of Present Illness Consult date: 06/25/22 History of present illness: History of present illness: This is a 71-year-old male patient of Dr. Vitale with past medical history of obstructive sleep apnea with CPAP, hypertension, hyperlipidemia, noncritical CAD by cath in 2019, history of Covid pneumonia 2020. We have been asked to evaluate patient for chest pain and dyspnea. Patient gives history that he has had chest pain while he was sitting and went across his upper chest. It was going on for few days and getting worse. He also has a cough and he was concerned because he had a barium swallow done 16 days ago and he thought he swallowed some of the barium. No barium is evident on his chest x-ray. His vital signs were stable at the time of presentation. EKG sinus rhythm at 90 bpm, no acute ST changes Chest x-ray: Background COPD with similar bibasilar patchy airspace opacities. This could represent pneumonia versus pulmonary fibrotic changes. CBC within normal limits. INR 1. Sodium 136, potassium 4.4, BUN 17 and creatinine 0.45, CO2 29. Blood sugar 263. Lactic acid 1.9. Calcium 8.6, mag nesium 1.7. Liver function tests are normal. Troponin negative 3, proBNP 94, albumin 3.7, cholesterol 155, LDL 88, HDL 52. Influenza A, influenza B, RSV, Covid 19 not detected. Home cardiac medications: Atorvastatin 20 mg at bedtime, Lasix 40 mg daily, Imdur 30 mg daily, lisinopril 5 mg daily, Aldactone 25 mg daily Echocardiogram 2018: EF 55%, moderate pulmonary hypertension Lexiscan stress test 2018 inferior wall fixed defect Cardiac catheterization 12/2019 revealed codominant system, ectopic right coronary comes off from the noncoronary cusp 35% stenosis, codominant circumflex 40% narrowing in the midportion, LAD and left main free of significant. Normal filling pressures. No gradient. Review Of Systems: At the time of my evaluation: Constitutional: No fever, no chills. No weakness, fatigue or lethargy. EENT: No headache. No dizziness. Lungs: Reports shortness of breath, reports cough, no sputum production. No wheezing. Cardiovascular: No chest pain, no lower extremity edema. No palpitations. No paroxysmal nocturnal dyspnea. No orthopnea. No lightheadedness or dizziness. No syncopal episodes. Abdominal: No abdominal pain. No nausea, vomiting. No diarrhea. No constipation. No bloody or tarry stools. Genitourinary: No dysuria.. No urinary retention. Musculoskeletal: No myalgias. No muscle weakness, no frequent falls. No back pain. No neck pain. Integumentary: No wounds. No rash. No unusual bruising. Neurologic: No aphasia. No facial droop. No change in mentation. No head injury. No headache. Physical examination: Gen: This is an obese 71-year-old male. He sitting in bed and appears to be comfortable at rest. No acute respiratory distress noted. VS: reviewed. Blood pressure 106/69, heart rate in the 50s to 70s, pulse ox 95% on room air, afebrile. HEENT: Head is atraumatic, normocephalic. Pupils equal, round. Sclerae is anic teric. NECK: Supple. No JVD. . LUNGS: Poor air entry. No intercostal retractions. HEART: Regular rate and rhythm. No murmur. ABDOMEN: Soft No tenderness. EXTREMITIES: No pedal edema. No calf tenderness. NEUROLOGICAL: Patient is awake, alert and oriented x3. Assessment: Chest pain, acute coronary syndrome has been ruled out Chest pain most likely muscular skeletal due to coughing COPD Obstructive sleep apnea with CPAP Hypertension Hyperlipidemia Noncritical CAD Plan: Resume patient's home cardiac medications No further cardiac workup at this time Patient may follow-up with Dr. TANMAY Vitale in 2 weeks. Cardiology will sign off and follow on an as-needed basis. Please reconsult if any new concerns develop. Thank you kindly for this consultation. Nurse practitioner note has been reviewed, I agree with documented findings and plan of care. Patient was seen and examined. Past Medical History Past Medical History: COPD, Deep Vein Thrombosis (DVT), GERD/Reflux, Hyperlipidemia, Hypertension, Pneumonia, Sleep Apnea/CPAP/BIPAP Additional Past Medical History / Comment(s): COVID IN JANUARY 2021. CHRONIC ABD PAIN HAS NOT FOUND DEFINITIVE CAUSE but has a abdominal dilaudid pain pump. Hx. of Diverticulitis, Pneumonia (2018), oxygen @ 5L ATC, chronic back pain, uses CPAP, hx. DVT RT leg , neuropathy feet, hx of pancreatitis.bilateral cataracts removed History of Any Multi-Drug Resistant Organisms: None Reported Past Surgical History: Appendectomy, Bowel Resection, Cholecystectomy Additional Past Surgical History / Comment(s): BOWEL RESECTION. Colonoscopy, exp. laparotomy, EGD, LASIK EYE SURGERY, pain pump Past Anesthesia/Blood Transfusion Reactions: No Reported Reaction Past Psychological History: No Psychological Hx Reported Smoking Status: Former smoker Past Alcohol Use History: Rare Additional Past Alcohol Use History / Comment(s): quit smoking 2000, smoked 1- 2ppd since age of 17 Past Drug Use History: None Reported - Past Family History Brother(s) Family Medical History: Cancer Additional Family Medical History / Comment(s): Colon Medications and Allergies Home Medications Medication Instructions Recorded Confirmed Type Spironolactone [Aldactone] 25 mg PO DAILY 01/27/15 06/24/22 History Furosemide [Lasix] 40 mg PO DAILY 02/06/19 06/24/22 History Omeprazole 40 mg PO DAILY 07/29/21 06/24/22 History lisinopriL [Zestril] 5 mg PO DAILY 07/29/21 06/24/22 History oxyCODONE-APAP 10-325MG [Percocet 1 tab PO Q8H 07/29/21 06/24/22 History 10-325 mg] tiZANidine HCL 4 mg PO BID PRN 07/29/21 06/24/22 History Albuterol Sulfate [Albuterol 1 puff PO RT-BID 06/24/22 06/24/22 History Sulfate Hfa] Atorvastatin [Lipitor] 20 mg PO HS 06/24/22 06/24/22 History Dextroamphetamine/Amphetamine 30 mg PO BID@0900,1600 06/24/22 06/24/22 History [Adderall] Dicyclomine [Bentyl] 20 mg PO QID 06/24/22 06/24/22 History Ipratropium Nebulized [Atrovent 0.5 mg INHALATION RT-QID 06/24/22 06/24/22 History Nebulized 0.2 MG/ML] Isosorbide Dinitrate 30 mg PO DAILY 06/24/22 06/24/22 History Allergies Allergy/AdvReac Type Severity Reaction Status Date / Time bee pollen Allergy Anaphylaxis Verified 06/24/22 15:21 Iodinated Contrast Media Allergy Anaphylaxis Verified 06/24/22 15:21 [Iodinated Contrast Media - IV Dye] metformin AdvReac Abdominal Verified 06/24/22 15:21 Pain Physical Exam Vitals: Vital Signs Temp Pulse Pulse Resp BP BP Pulse Ox 06/25/22 06:34 98.4 F 58 L 15 106/69 95 06/25/22 02:50 98.2 F 51 L 17 97/56 97 06/24/22 18:57 68 06/24/22 18:49 64 06/24/22 18:48 97.7 F 71 18 128/81 95 06/24/22 18:05 69 18 110/77 98 06/24/22 15:29 92 18 102/63 98 06/24/22 13:31 97.9 F 91 20 111/72 93 L Intake and Output 06/24/22 06/25/22 06/25/22 22:59 06:59 14:59 Other: # Voids 1 1 Weight 109.769 kg Results 06/24/22 14:02 06/24/22 14:02 Cardiac Enzymes 06/24/22 06/24/22 06/24/22 Range/Units 14:02 14:02 18:55 AST 23 (17-59) U/L Troponin I <0.012 <0.012 (0.000-0.034) ng/mL 06/24/22 Range/Units 22:47 AST (17-59) U/L Troponin I <0.012 (0.000-0.034) ng/mL Coagulation 06/24/22 Range/Units 14:02 PT 10.8 (9.0-12.0) sec APTT 24.2 (22.0-30.0) sec CBC 06/24/22 Range/Units 14:02 WBC 7.0 (3.8-10.6) k/uL RBC 4.56 (4.30-5.90) m/uL Hgb 14.2 (13.0-17.5) gm/dL Hct 42.6 (39.0-53.0) % Plt Count 208 (150-450) k/uL Comprehensive Metabolic Panel 06/24/22 Range/Units 14:02 Sodium 136 L (137-145) mmol/L Potassium 4.4 (3.5-5.1) mmol/L Chloride 100 (98-107) mmol/L Carbon Dioxide 29 (22-30) mmol/L BUN 17 (9-20) mg/dL Creatinine 0.45 L (0.66-1.25) mg/dL Glucose 263 H (74-99) mg/dL Calcium 8.6 (8.4-10.2) mg/dL AST 23 (17-59) U/L ALT 19 (4-49) U/L Alkaline Phosphatase 72 (38-126) U/L Total Protein 6.6 (6.3-8.2) g/dL Albumin 3.7 (3.5-5.0) g/dL Current Medications Generic Name Dose Route Start Last Admin Trade Name Freq PRN Reason Stop Dose Admin Aspirin 325 mg 06/25/22 09:00 Aspirin 325 Mg Tab PO DAILY [facility] Atorvastatin Calcium 20 mg 06/24/22 21:00 06/24/22 21:22 Atorvastatin 20 Mg Tab PO 20 mg HS JONNY Administration Dicyclomine HCl 20 mg 06/24/22 18:00 06/24/22 22:02 Dicyclomine 20 Mg Tab PO 20 mg QID JONNY Administration Furosemide 40 mg 06/25/22 09:00 Furosemide 40 Mg Tab PO DAILY [facility] Heparin Sodium (Porcine) 5,000 unit 06/24/22 17:45 06/25/22 00:07 Heparin Sodium,Porcine/Pf 5,000 Unit/0.5 Ml Syringe SQ 5,000 unit Q8HR JONNY Administration Ipratropium [place] 0.5 mg 06/24/22 20:00 06/24/22 18:49 Ipratropium 0.5 Mg/2.5 Ml Nebu INHALATION 0.5 mg RT-QID JONNY Administration Isosorbide Mononitrate 30 mg 06/25/22 09:00 Isosorbide Mononitrate Er 30 Mg Tab.Er.24h PO DAILY [facility] Lisinopril 5 mg 06/25/22 09:00 Lisinopril 5 Mg Tab PO DAILY [facility] Nitroglycerin 0.4 mg 06/24/22 16:29 Nitroglycerin Sl Tabs 0.4 Mg Tab SUBLINGUAL Q5M PRN Chest Pain Non-Formulary Medication 30 mg 06/25/22 09:00 Dextroamphetamine/Amphetamine [Adderall] PO BID@0900,1600 [facility] Oxycodone/Acetaminophen 1 each 06/25/22 00:00 06/24/22 22:00 Oxycodone-Apap 10-325mg 1 Each Tab PO 1 each Q8HR JONNY Administration Pantoprazole Sodium 40 mg 06/25/22 09:00 Pantoprazole 40 Mg Tablet PO DAILY JONNY Spironolactone 25 mg 06/25/22 09:00 Spironolactone 25 Mg Tab PO DAILY JONNY Tizanidine HCl 4 mg 06/24/22 17:25 Tizanidine 4 Mg Tab PO BID PRN Pain Intake and Output 06/24/22 06/25/22 06/25/22 22:59 06:59 14:59 Other: # Voids 1 1 Weight 109.769 kg 06/24/22 14:02 06/24/22 14:02
[2022-06-25] MEDS ORDERED: DEXTROSE 50% SYRINGE 50 ML IVP PRN ×2 (10:56)
--- NOTE | 2022-06-25 11:12 | P.PN ---
Subjective Progress note Date of service 06/25/[address] Nicole. Patient seen [id number] and discussed with the patient in detail. Patient seen today byrotation and flake miller helper however in the dictation of the cardiology by the nurse practitioner in never mentioned the cardiology rounding name. The conclusion of his consultation that patient has no evidence of pain originating from cardiac ruby with the normal troponin and could be muscular in origin. Patient today still complaining of chest discomfort across his chest and unclear the etiology of that discomfort and across the upper abdomen. Patient has recently on 06/09/1906/24/2022 esophagogram with contrast and was double contrast and found in that testing which was done at [facility] indication that patient had silent aspiration into the trachea and proximal bronchi and they terminated any for further continuation of the testing and the did subsequently x-ray of the abdomen and that was nonobstructive bowel gas. Patient has history of cholecystectomy. Patient has history of significant abdominal pain in the upper chest and upper abdomen and he was scheduled by Dr. Singh for resolving adhesion of the upper abdomen however at the time of the surgery he had pneumonia and the surgical intervention canceled and which was at that time admitted to [facility]. Patient also had history of this admission as admitted on observation and the chest x-ray done in the ER showed bilateral basilar infiltrate and consultation with Dr. Gil was requested, patient not seen yet by Dr. Gil for the pulmonary evaluation patient uses CPAP at home with the underlying COPD and severe hypoxemia and he is on chronic oxygen with chronic respiratory failure. And Dr. Gil consultation was placed yesterday and hopefully he will be seeing him today. With the patient discussion and his systemic complaint still with the chest discomfort and since this morning still present and feeding of across the chest and heavy feeling including the upper abdomen will be consulting Dr. Singh the surgeon to assess his previous surgical situation as well as if she has any opinion and the report of the test on the chart and I did discussed with EDDIE Galicia to point out the report to Dr. Singh and to see her opinion and if any for further recommendation from her will be appreciated. This patient seen today his temperature 98.4 F oral, his heart rate 76 , respiratory rate 18/m with shortness of breath and his blood pressure 106/69 with a mean 81 and oxygen saturation 95% on with the nasal cannula 4 L. Patient is diabetic and his blood glucose is fluctuating and placed on NovoLog insulin to scale 3 times a day before meals meals. On exam the head normocephalic and atraumatic and oropharynx as a only a few teeth on the right lower jaw tongue is normal and he has normal swallowing with no choking when he eats as he stated but there is a silent aspiration. Neck was supple Chest increased anteroposterior diameter no wheezes no rhonchi's with decreased air entry in the lower bases bilaterally Abdomen is obese positive bowel sounds and no tenderness excepted that he had right mid abdomen pump for pain control with the chronic history of chronic pain syndrome and he is treated by Dr. Thao in [facility] anesthesia and pain clinic with the use of Dilaudid pump Extremities no edema and positive pulses Neurologically no history of stroke. Assessment: And plan #1 still patient complaining of chest discomfort/pain with a heavy feeling on the midsternum and the cardiology has cleared him from the cardiac point of view. #2 underlying recent testing with the silent aspiration the etiology is unclear. #3 history of adhesions with multiple surgery and abdomen and he was planned for surgical intervention to remove the adhesion by Dr. Singh could be causing his symptoms will be consulting Dr. Singh as well as Dr. Gil #4 continue the oxygen therapy and #5 diabetes mellitus2 #6 obesity. #7 we will wait for the advice and no pain of Dr. Singh and Dr. Gil. Objective - Vital Signs Vital signs: Vital Signs Temp 98.4 F 06/25/22 06:34 Pulse 76 06/25/22 09:40 Resp 18 06/25/22 10:00 BP 106/69 06/25/22 06:34 Pulse Ox 95 06/25/22 06:34 FiO2 Intake & Output 06/24/22 06/25/22 06/25/22 18:59 06:59 18:59 Intake Total 180 Balance 180 Weight 109.769 kg 109.769 kg Intake: Oral 180 Other: Voiding Method Toilet # Voids 1 - Labs CBC & Chem 7: 06/24/22 14:02 06/24/22 14:02 Labs: Abnormal Lab Results - Last 24 Hours (Table) 06/24/22 06/24/22 06/25/22 Range/Units 14:02 22:01 07:54 Sodium 136 L (137-145) mmol/L Creatinine 0.45 L (0.66-1.25) mg/dL Glucose 263 H (74-99) mg/dL POC Glucose (mg/dL) 187 H 140 H (70-110) mg/dL
[2022-06-25] MEDS: PANTOPRAZOLE 40 MG TABLET PO SCH (11:18)
[2022-06-25 12:11] LABS: Glucose,Whole Blood 205 mg/dL (70-110)
--- NOTE | 2022-06-25 12:17 | P.GSCN ---
History of Present Illness Consult date: 06/25/22 History of present illness: CHIEF COMPLAINT: Chest pain HISTORY OF PRESENT ILLNESS: This is a 71-year-old male who presented to hospital with complaints of shortness of breath and chest heaviness. Patient reports he's had chest discomfort for about 2 weeks. Symptoms apparently started after his upper GI study on 06/08/2012 at [facility]. Patient also reports having difficulty with swallowing solid foods. The upper GI results had shown evidence of silent aspiration. Patient was seen by cardiology service no evidence of acute coronary syndrome. Surgical service consulted due to abdominal pain and aspiration during esophagram. PAST MEDICAL HISTORY: See list. PAST SURGICAL HISTORY: See list. MEDICATIONS: See list. ALLERGIES: See list. SOCIAL HISTORY: No illicit drug use. REVIEW OF SYSTEMS: CONSTITUTIONAL: Denies fever or chills. HEENT: Denies blurred vision, vision changes, or eye pain. Denies hemoptysis ENDOCRINE: Denies heat or cold intolerance. CARDIOVASCULAR: Denies chest pain or pressure. RESPIRATORY: No shortness of breath. GASTROINTESTINAL: Denies abdominal pain. Denies nausea or vomiting. NEURO: Denies history of seizures. PSYCH: No depression or suicidal ideation HEMATOLOGIC: Denies bleeding disorders. LYMPHATIC: The patient denies any lumps and bumps around the neck. GENITOURINARY: Denies any blood in urine or increased urinary frequency. MUSCULOSKELETAL: Denies myalgias. Denies joint swelling. Denies decreased range of motion beyond patients baseline. SKIN: Denies pruitis. Denies rash. PHYSICAL EXAM: VITAL SIGNS: Reviewed GENERAL: Well-developed in no acute distress. HEENT: No sclera icterus. Extraocular movements grossly intact. Moist buccal mucosa. Head is atraumatic, normocephalic. Hears conversational speech. No nasal drainage. NECK: Supple without lymphadenopathy. CHEST: Non-labored respirations and equal bilateral excursions. CARDIOVASCULAR: Palpable 2+ radial pulses. ABDOMEN: Soft. Nondistended. Nontender MUSCULOSKELETAL: No clubbing or cyanosis. NEUROLOGIC: No focal or lateralizing signs. Cranial nerves II through XII grossly intact. PSYCH: Appropriate affect. Alert and oriented to person, place and time. SKIN: Well perfused. Good skin turgor. LABORATORY DATA: WBC 7.0 hgb 14.2 platelets 208 Sodium 136 potassium 4.4 creatinine 0.45 LFTs normal troponins negative Influenza, RSV and COVID-19 not detected IMAGING: Chest x-ray background COPD changes with similar bibasilar patchy airspace opacities. This could represent pneumonia versus pulmonary fibrotic changes. ASSESSMENT: 1. Dysphagia 2. Silent aspiration noted on upper GI 3. Chest pressure 4. Prior surgical history of lysis of adhesions PLAN: -Consult speech therapy for swallowing evaluation -Recommend patient to be nothing by mouth until evaluated by speech therapy -Recommend EGD for further evaluation of dysphagia -Continue supportive care Thank you for this consultation Physician User Acceptance Tester note has been reviewed by physician. Signing provider agrees with the documented findings, assessment, and plan of care. REASON FOR CONSULTATION: Aspiration pneumonia, atypical chest HISTORY OF PRESENT ILLNESS: The patient is a 71 year old male who reports over several weeks atypical chest pain including dysphagia trouble swallowing. Patient had diagnostic studies at outside facility including barium swallow with new findings of aspiration pneumonia. He reports confirmed difficulty eating textured foods. Patient admitted for aspiration pneumonia. Patient does have pre-existing history of pulmonary disease and oxygen dependent. PAST MEDICAL HISTORY: See list and reviewed PAST SURGICAL HISTORY: See list and reviewed MEDICATIONS: See list and reviewed ALLERGIES: See list and reviewed SOCIAL HISTORY: See list and reviewed FAMILY HISTORY: See list and reviewed REVIEW OF ORGAN SYSTEMS: CONSTITUTIONAL: No fevers or chills. No recent weight loss. Obesity due to excess calories, BMI 35.7 EYES: Denies any trouble with vision. No glasses. HEENT: No difficulties with hearing. No nosebleeds. No difficulty swallowing. RESPIRATORY: Has chronic obstructive pulmonary disease. Recent pneumonia. CARDIOVASCULAR: Has hyperlipidemia. Has hypertensive heart disease. Has congestive heart failure. GASTROINTESTINAL: Has gastroesophageal reflux disease and has chronic abdominal pain due to adhesions. GENITOURINARY: Denies any blood in urine or increased urinary frequency. NEUROLOGICAL: Denies any numbness or tingling along the distal extremities. No seizure disorders or headaches. MUSCULOSKELETAL: Denies any back pain, stiffness or joint arthritis. SKIN: No current skin cancer. No rash. PSYCHIATRIC: Denies current depression or suicidal thoughts. ENDOCRINE: Denies current thyroid disorders. Denies any blood sugar glucose intolerance. HEME/LYMPHATIC: Denies any lumps and bumps around the neck. Past deep venous thrombosis. ALLERGY/IMMUNOLOGY: No immunoglobulin therapy. No immune deficiencies. BREAST: Denies current breast lumps, pain or nipple discharge. PHYSICAL EXAM: VITALS: Reviewed CONSTITUTIONAL: Well developed and in no acute distress. EYES: Conjuctivae without sclera icterus. Extraocular movements grossly intact. HEAD, EARS, NOSE, THROAT: Moist buccal mucosa. Head is atraumatic, normocephalic. Hears conversational speech. No nasal drainage. NECK: Supple. No JV distention. No thyroidomegaly. RESPIRATORY: Non-labored respirations and equal bilateral excursions. No gross wheezes. CARDIOVASCULAR: Palpable 2+ radial pulses. ABDOMEN: Obese. Nontender. LYMPH: No neck lymphadenopathy. MUSCULOSKELETAL: No clubbing cyanosis or edema SKIN: Warm and well perfused with good skin turgor. NEUROLOGIC: Cranial nerves II through XII grossly intact. No focal or lateralizing signs. PSYCH: Appropriate affect. Alert and oriented to person, place and time. Displays appropriate insight. CLINCAL LABS: Reviewed. WBC normal. IMAGING: Independently reviewed. No free air. RADIOLOGY: Report reviewed, Chest x-ray report demonstrates atelectasis and COPD. RECORDS: Outside records from institution regarding barium swallow reviewed with silent aspiration ASSESSMENT: 1. Aspiration pneumonia 2. Dysphagia 3. Morbid obesity to assist calories, BMI 35.7 4. Chronic obstructive pulmonary disease 5. Pneumonia 6. Hypertensive heart disease 7. Personal history deep venous thrombosis 8. Hyperlipidemia 9. Congestive heart failure PLAN: 1. He has pre-existing dysphagia and may benefit from symptomatic treatment with upper endoscopy 2. Pending pulmonary consultation regarding silent chronic aspiration. May need further assessment of feeding tube of chronic aspiration progressively. 3. Recommend bedside swallow studies pathologist for liquid nectar fluids and oropharyngeal dysphagia ADVANCE DIRECTIVE: Thank you for this kind consultation. Past Medical History Past Medical History: COPD, Deep Vein Thrombosis (DVT), GERD/Reflux, Hyperlipidemia, Hypertension, Pneumonia, Sleep Apnea/CPAP/BIPAP Additional Past Medical History / Comment(s): COVID IN JANUARY 2021. CHRONIC ABD PAIN HAS NOT FOUND DEFINITIVE CAUSE but has a abdominal dilaudid pain pump. Hx. of Diverticulitis, Pneumonia (2018), oxygen @ 5L ATC, chronic back pain, uses CPAP, hx. DVT RT leg , neuropathy feet, hx of pancreatitis.bilateral cataracts removed History of Any Multi-Drug Resistant Organisms: None Reported Past Surgical History: Appendectomy, Bowel Resection, Cholecystectomy Additional Past Surgical History / Comment(s): BOWEL RESECTION. Colonoscopy, exp. laparotomy, EGD, LASIK EYE SURGERY, pain pump Past Anesthesia/Blood Transfusion Reactions: No Reported Reaction Past Psychological History: No Psychological Hx Reported Smoking Status: Former smoker Past Alcohol Use History: Rare Additional Past Alcohol Use History / Comment(s): quit smoking 2000, smoked 1- 2ppd since age of 17 Past Drug Use History: None Reported - Past Family History Brother(s) Family Medical History: Cancer Additional Family Medical History / Comment(s): Colon Medications and Allergies Home Medications Medication Instructions Recorded Confirmed Type Spironolactone [Aldactone] 25 mg PO DAILY 01/27/15 06/24/22 History Furosemide [Lasix] 40 mg PO DAILY 02/06/19 06/24/22 History Omeprazole 40 mg PO DAILY 07/29/21 06/24/22 History lisinopriL [Zestril] 5 mg PO DAILY 07/29/21 06/24/22 History oxyCODONE-APAP 10-325MG [Percocet 1 tab PO Q8H 07/29/21 06/24/22 History 10-325 mg] tiZANidine HCL 4 mg PO BID PRN 07/29/21 06/24/22 History Albuterol Sulfate [Albuterol 1 puff PO RT-BID 06/24/22 06/24/22 History Sulfate Hfa] Atorvastatin [Lipitor] 20 mg PO HS 06/24/22 06/24/22 History Dextroamphetamine/Amphetamine 30 mg PO BID@0900,1600 06/24/22 06/24/22 History [Adderall] Dicyclomine [Bentyl] 20 mg PO QID 06/24/22 06/24/22 History Ipratropium Nebulized [Atrovent 0.5 mg INHALATION RT-QID 06/24/22 06/24/22 History Nebulized 0.2 MG/ML] Isosorbide Dinitrate 30 mg PO DAILY 06/24/22 06/24/22 History Allergies Allergy/AdvReac Type Severity Reaction Status Date / Time bee pollen Allergy Anaphylaxis Verified 06/24/22 15:21 Iodinated Contrast Media Allergy Anaphylaxis Verified 06/24/22 15:21 [Iodinated Contrast Media - IV Dye] metformin AdvReac Abdominal Verified 06/24/22 15:21 Pain Surgical - Exam Vital Signs Temp Pulse Resp BP Pulse Ox 97.9 F 91 20 111/72 93 L 06/24/22 13:31 06/24/22 13:31 06/24/22 13:31 06/24/22 13:31 06/24/22 13:31 Results - Labs 06/24/22 14:02 06/24/22 14:02 Abnormal Lab Results - Last 24 Hours (Table) 06/24/22 06/24/22 06/25/22 Range/Units 14:02 22:01 07:54 Sodium 136 L (137-145) mmol/L Creatinine 0.45 L (0.66-1.25) mg/dL Glucose 263 H (74-99) mg/dL POC Glucose (mg/dL) 187 H 140 H (70-110) mg/dL Diabetes panel 06/24/22 06/24/22 Range/Units 14:02 14:02 Sodium 136 L (137-145) mmol/L Potassium 4.4 (3.5-5.1) mmol/L Chloride 100 (98-107) mmol/L Carbon Dioxide 29 (22-30) mmol/L BUN 17 (9-20) mg/dL Creatinine 0.45 L (0.66-1.25) mg/dL Glucose 263 H (74-99) mg/dL Calcium 8.6 (8.4-10.2) mg/dL AST 23 (17-59) U/L ALT 19 (4-49) U/L Alkaline Phosphatase 72 (38-126) U/L Total Protein 6.6 (6.3-8.2) g/dL Albumin 3.7 (3.5-5.0) g/dL Triglycerides 72.00 (0.00-149.00) mg/dL HDL Cholesterol 52.40 (40.00-60.00) mg/dL Calcium panel 06/24/22 Range/Units 14:02 Calcium 8.6 (8.4-10.2) mg/dL Albumin 3.7 (3.5-5.0) g/dL Pituitary panel 06/24/22 Range/Units 14:02 Sodium 136 L (137-145) mmol/L Potassium 4.4 (3.5-5.1) mmol/L Chloride 100 (98-107) mmol/L Carbon Dioxide 29 (22-30) mmol/L BUN 17 (9-20) mg/dL Creatinine 0.45 L (0.66-1.25) mg/dL Glucose 263 H (74-99) mg/dL Calcium 8.6 (8.4-10.2) mg/dL Adrenal panel 06/24/22 Range/Units 14:02 Sodium 136 L (137-145) mmol/L Potassium 4.4 (3.5-5.1) mmol/L Chloride 100 (98-107) mmol/L Carbon Dioxide 29 (22-30) mmol/L BUN 17 (9-20) mg/dL Creatinine 0.45 L (0.66-1.25) mg/dL Glucose 263 H (74-99) mg/dL Calcium 8.6 (8.4-10.2) mg/dL Total Bilirubin 0.6 (0.2-1.3) mg/dL AST 23 (17-59) U/L ALT 19 (4-49) U/L Alkaline Phosphatase 72 (38-126) U/L Total Protein 6.6 (6.3-8.2) g/dL Albumin 3.7 (3.5-5.0) g/dL
[2022-06-25] MEDS: INSULIN ASPART (NovoLOG) 100 UNIT/ML VIAL SQ SCH ×2 (12:54→17:43)
--- NOTE | 2022-06-25 14:20 | FL ---
EXAMINATION TYPE: FL barium swallow w video DATE OF EXAM: 06/25/2022 MODIFIED SWALLOW / DEGLUTITION STUDY CLINICAL HISTORY: Dysphagia. History of silent aspiration. TECHNIQUE: Deglutition study is performed utilizing thin liquid barium, honey and nectar thick liqui d barium, barium thick applesauce, and barium coated cracker. A total of 1 minute 37 seconds of fluor oscopic time utilized during procedure. 0 images are saved to PACS. COMPARISON: Prior esophagram January 03, 2019. FINDINGS: The oral and pharyngeal phases show satisfactory initiation and propagation with all modali ties tested. Satisfactory mastication is seen with solid modalities tested. There is deep penetratio n with thin liquid barium and nectar thick liquid barium. No improvement with chin tuck procedure wit hin liquid barium. Patient is able to clear barium with coughing. No aspiration is noted with these o r more viscous modalities. Mild pharyngeal residuals with more viscous modalities incidentally noted. IMPRESSION: Deep penetration with less viscous modalities. No aspiration observed. Please refer to jaquelin lucero therapist notes for further details if necessary.
--- NOTE | 2022-06-25 15:45 | P.CNPUL ---
History of Present Illness Consult date: 06/25/22 Reason for consult: COPD History of present illness: 71-year-old male patient with known history of COPD, obstructive sleep apnea maintenance CPAP therapy on outpatient basis, previous history of Covid 19 infection with prolonged hospitalization, known history of abdominal adhesions with recurrent abdominal pain on the care of Dr. Nelson. Patient also has hypertension and hyperlipidemia noncritical CAD. The patient came in with some epigastric and right anterior chest pain. His pain is subsided. He does have episodic abdominal pain. Note that his workup has been essentially negative thus far. His chest x-ray shows chronic COPD changes with some chronic interstitial changes lung bases bilaterally, residual from his previous pne umonias. EKG was sinus without any acute ischemic changes. The vital screening including influenza and Covid 19 and RSV were all negative. Lactic acid level was at 1.9. Creatinine was 0.45 with a BUN of 17 and a CBC was essentially normal. Troponins are negative and a proBNP level is not [facility] 94[facility] hypertension with an ejection fraction of 55%. Is currently doing well. Is stable. History of any pain. Review of Systems Constitutional: No fever, no chills. No weakness, fatigue or lethargy. EENT: No headache. No dizziness. Lungs: Reports shortness of breath, reports cough, no sputum production. No wh eezing. Cardiovascular: No chest pain, no lower extremity edema. No palpitations. No paroxysmal nocturnal dyspnea. No orthopnea. No lightheadedness or dizziness. No syncopal episodes. Abdominal: No abdominal pain. No nausea, vomiting. No diarrhea. No constipation. No bloody or tarry stools. Genitourinary: No dysuria.. No urinary retention. Musculoskeletal: No myalgias. No muscle weakness, no frequent falls. No back pain. No neck pain. Integumentary: No wounds. No rash. No unusual bruising. Neurologic: No aphasia. No facial droop. No change in mentation. No head injury. No headache. Past Medical History Past Medical History: COPD, Deep Vein Thrombosis (DVT), GERD/Reflux, Hyperlipidemia, Hypertension, Pneumonia, Sleep Apnea/CPAP/BIPAP Additional Past Medical History / Comment(s): COVID IN JANUARY 2021. CHRONIC ABD PAIN HAS NOT FOUND DEFINITIVE CAUSE but has a abdominal dilaudid pain pump. Hx. of Diverticulitis, Pneumonia (2018), oxygen @ 5L ATC, chronic back pain, uses CPAP, hx. DVT RT leg , neuropathy feet, hx of pancreatitis.bilateral cataracts removed History of Any Multi-Drug Resistant Organisms: None Reported Past Surgical History: Appendectomy, Bowel Resection, Cholecystectomy Additional Past Surgical History / Comment(s): BOWEL RESECTION. Colonoscopy, exp. laparotomy, EGD, LASIK EYE SURGERY, pain pump Past Anesthesia/Blood Transfusion Reactions: No Reported Reaction Past Psychological History: No Psychological Hx Reported Smoking Status: Former smoker Past Alcohol Use History: Rare Additional Past Alcohol Use History / Comment(s): quit smoking 2000, smoked 1- 2ppd since age of 17 Past Drug Use History: None Reported - Past Family History Brother(s) Family Medical History: Cancer Additional Family Medical History / Comment(s): Colon Medications and Allergies Home Medications Medication Instructions Recorded Confirmed Type Spironolactone [Aldactone] 25 mg PO DAILY 01/27/15 06/24/22 History Furosemide [Lasix] 40 mg PO DAILY 02/06/19 06/24/22 History Omeprazole 40 mg PO DAILY 07/29/21 06/24/22 History lisinopriL [Zestril] 5 mg PO DAILY 07/29/21 06/24/22 History oxyCODONE-APAP 10-325MG [Percocet 1 tab PO Q8H 07/29/21 06/24/22 History 10-325 mg] tiZANidine HCL 4 mg PO BID PRN 07/29/21 06/24/22 History Albuterol Sulfate [Albuterol 1 puff PO RT-BID 06/24/22 06/24/22 History Sulfate Hfa] Atorvastatin [Lipitor] 20 mg PO HS 06/24/22 06/24/22 History Dextroamphetamine/Amphetamine 30 mg PO BID@0900,1600 06/24/22 06/24/22 History [Adderall] Dicyclomine [Bentyl] 20 mg PO QID 06/24/22 06/24/22 History Ipratropium Nebulized [Atrovent 0.5 mg INHALATION RT-QID 06/24/22 06/24/22 History Nebulized 0.2 MG/ML] Isosorbide Dinitrate 30 mg PO DAILY 06/24/22 06/24/22 History Allergies Allergy/AdvReac Type Severity Reaction Status Date / Time bee pollen Allergy Anaphylaxis Verified 06/24/22 15:21 Iodinated Contrast Media Allergy Anaphylaxis Verified 06/24/22 15:21 [Iodinated Contrast Media - IV Dye] metformin AdvReac Abdominal Verified 06/24/22 15:21 Pain Physical Exam Vitals: Vital Signs Temp Pulse Pulse Resp BP BP Pulse Ox 06/25/22 14:58 98.1 F 70 22 113/88 96 06/25/22 13:30 72 06/25/22 13:19 68 06/25/22 12:17 14 06/25/22 10:00 18 06/25/22 09:40 76 06/25/22 09:25 76 06/25/22 06:34 98.4 F 58 L 15 106/69 95 06/25/22 02:50 98.2 F 51 L 17 97/56 97 06/24/22 18:57 68 06/24/22 18:49 64 06/24/22 18:48 97.7 F 71 18 128/81 95 06/24/22 18:05 69 18 110/77 98 Intake and Output 06/25/22 06/25/22 06/25/22 06:59 14:59 22:59 Intake Total 298 Balance 298 Intake: Oral 298 Other: Voiding Method Toilet # Voids 1 1 Gen: This is an obese 71-year-old male. He sitting in bed and appears to be comfortable at rest. No acute respiratory distress noted. Head exam was generally normal. There was no scleral icterus or corneal arcus. Mucous membranes were moist. HEENT: Head is atraumatic, normocephalic. Pupils equal, round. Sclerae is anicteric. NECK: Supple. No JVD. . LUNGS: Poor air entry. No intercostal retractions. HEART: Regular rate and rhythm. No murmur. ABDOMEN: Soft No tenderness. EXTREMITIES: No pedal edema. No calf tenderness. NEUROLOGICAL: Patient is awake, alert and oriented x3. Results - Laboratory Findings CBC and BMP: 06/24/22 14:02 06/24/22 14:02 PT/INR, D-dimer PT 10.8 sec (9.0-12.0) 06/24/22 14:02 INR 1.0 (<1.2) 06/24/22 14:02 Abnormal lab findings: Abnormal Labs 06/24/22 06/24/22 06/25/22 14:02 22:01 07:54 Sodium 136 L Creatinine 0.45 L Glucose 263 H POC Glucose (mg/dL) 187 H 140 H 06/25/22 12:10 Sodium Creatinine Glucose POC Glucose (mg/dL) 205 H - Diagnostic Findings Chest x-ray: image reviewed Assessment and Plan Plan: Episodic abdominal/epigastric pain related and attributed to chronic abdominal adhesions under the care of general surgery Chest pain, nonspecific, atypical in nature, negative cardiac enzymes, negative EKG COPD currently inactive and stable, patient is chronic hypoxic respiratory failure mainly on oxygen 3 L per minute nasal cannula Obstructive sleep apnea without CPAP Previous history of Covid 19 infection Hypertension Hyperlipidemia Noncritical CAD Obesity, losing weight Acid reflux Chronic abdominal pain, although the care of general surgery Chronic back pain Previous history of a DVT of the right lower extremity Plan No active pulmonary issues Continue using CPAP from home Oxygen therapy Incentive spirometer Pulmonary and critical care services will sign off
[2022-06-25 17:23] LABS: Glucose,Whole Blood 146 mg/dL (70-110)
[2022-06-25] MEDS: ATORVASTATIN 40 MG TAB PO SCH (20:25)
[2022-06-25 20:38] LABS: Glucose,Whole Blood 228 mg/dL (70-110)
[2022-06-26 06:04] LABS: Glucose,Whole Blood 159 mg/dL (70-110)
[2022-06-26] MEDS: INSULIN ASPART (NovoLOG) 100 UNIT/ML VIAL SQ SCH ×3 (06:15→18:09)
[2022-06-26] MEDS: IPRATROPIUM 0.5 MG/2.5 ML NEBU INHALATION SCH ×2 (09:05→11:18)
[2022-06-26] MEDS: HEPARIN SODIUM,PORCINE/PF 5,000 UNIT/0.5 ML SYRINGE SQ SCH ×3 (09:21→23:07)
[2022-06-26] MEDS: oxyCODONE-APAP 10-325MG 1 EACH TAB PO SCH ×3 (09:22→23:07)
[2022-06-26] MEDS: ISOSORBIDE MONONITRATE ER 30 MG TAB.ER.24H PO SCH (09:22)
[2022-06-26] MEDS: DICYCLOMINE 20 MG TAB PO SCH ×2 (09:22→13:55)
[2022-06-26] MEDS: PANTOPRAZOLE 40 MG TABLET PO SCH (09:22)
[2022-06-26] MEDS: NON FORMULARY DRUG (Dextroamphetamine/Amphetamine [Adderall] 30 MG Tablet) PO SCH ×2 (09:23→15:56)
[2022-06-26] MEDS: ASPIRIN 81 MG PO SCH (09:23)
[2022-06-26] MEDS: FUROSEMIDE 40 MG TAB PO SCH (09:23)
[2022-06-26] MEDS: SPIRONOLACTONE 25 MG TAB PO SCH (09:23)
--- NOTE | 2022-06-26 09:51 | P.PN ---
Progress Note - Text Progress Note Date: 06/26/22 Patient's resting comfortably in his bed. He denies any significant abdominal pain. He is tolerating most of his breakfast. He denies any dysphagia. On exam vital signs are stable. Abdomen soft.. Patient can receive supportive care.
[2022-06-26] MEDS: lisinopriL 5 MG TAB PO SCH (11:19)
[2022-06-26 12:29] LABS: Glucose,Whole Blood 213 mg/dL (70-110)
--- NOTE | 2022-06-26 14:27 | P.PN ---
Subjective Progress Note Date: 06/26/22 Principal diagnosis: Diagnosis: #1 acute chest pain substernal across the chest #2 normal troponin and EKG #3 cardiology consult indicating noncardiac with the unknown etiology. #4 consultation with pulmonary and critical for unknown etiology of chest discomfort which is progressively increased #5 pulmonary consult reviewed indicating stable COPD, and the reason for the consult there is infiltrate in the lower basis as well as the [facility] testing of swallow study was not completed because of finding of silent aspiration. #6 pulmonary consult sign off. However with increased chest pain and chest discomfort 8 today on 06/26/2022. Consult with pulmonary requested needed for unknown chest pain #7 patient had history of silent aspiration underwent swallow study with the finding indicating penetration with no aspiration done on yesterday June and recommended speech pathology evaluation which is consult. #8 Dr. Ware did see the patient in consultation with the history of significant adhesion as well as right right lower quadrant discomfort was O patient and he was in the past scheduled for removing the adhesion. Dr. Ware scheduled him for Tuesday for EGD evaluation. Patient has COPD and chronic hypoxemia on permanent oxygen at home 3-4 L. #9 diabetes mellitus type 2 and hemoglobin A1c 8.2 with fluctuation currently on insulin to scale with the ALLERGY to metformin. Progress note Date of service Dictation by Dr. Rogel. Today I did discuss it with the patient in detail with his . Patient complaining of chest burning and pain across the chest 10/14 and subsequently his nurse paged me on perfect serve and I did, and evaluated the patient And I did message the nurse back to contact cardiology, pulmonary, the surgeon will be planned for EGD on Tuesday. I reviewed the note from the pulmonary and critical care and they signed off considering the patient was stable on the note dated 06/25/2022 however we will be still contacting them to see if there is any help of the underlying 8/10 chest pain. Also they contacted the cardiology who stated that the pain is noncardiac and no farther diagnostic or treatment for the considering unknown chest pain. Plan I did start updraft nebulizer with albuterol and ipratropium 4 times a day and discontinue the ipratropium. Also I did review the medication and discontinuation of the medication that has any relation at this time and to exclude any possibility of any drug reaction including Bentyl discontinued and will be checking CMP and CBC with differential in a.m. And continue consultation with the speech pathology and meanwhile Dr. Parnell oral upper endoscopy on Tuesday a.m. His temperature 98.3 F oral, pulse 73/m regular, he has increased anteroposteri or diameter, he has decreased air entry on the basis, blood pressure 113/74 and mean 87 he is on nasal cannula 3 L with pulse ox 96%. Hemoglobin A1c 8.2 with the blood sugar fluctuation and the POC blood glucose was a lost 1 213. On exam: Patient is conscious alert oriented 3 his at bedside. Head was normocephalic and atraumatic. Oropharynx he has only a few teeth in the right lower jaw no facial symmetry. Neck was supple no JVD no thyromegaly no lymphadenopathy trachea midline. Neck was supple no JVD no thyromegaly no lymphadenopathy. Chest was increased anteroposterior diameter decreased air entry on the basis he had scattered expiratory rhonchi's with the COPD The heart was regular sinus rhythm and will obtain the last echocardiogram. Abdomen positive bowel sounds multiple scar of the abdomen and he had also history of adhesion in the past as well as no tenderness on the costochondral junction of the chest wall Extremities no edema and positive pulses with good perfusion Neurologically stable. Psychologically stable. Assessment: #1 still acute chest pain with exacerbation was 8/10 today and nitroglycerin sublingual did not help as he received it on the floor. #2 and then etiology of his chest discomfort and we asked of the pulmonary as well as cardiology for any help or opinion or any sign. Decrease in. #3 diabetes mellitus type 2 with elevated hemoglobin A1c. #4 history of silent aspiration and workup is in progress. #5 hyperlipidemia. Plan We will continue symptomatic treatment as well as requesting help from cardiology pulmonary. Dr. callejas although the EGD on Tuesday. Patient has chronic pain syndrome with Dilor the pump in the right mid abdomen as well as he is on Percocet stated that different pain in his chest of unknown etiology Objective - Vital Signs Vital signs: Vital Signs Temp 98.3 F 06/26/22 07:00 Pulse 78 06/26/22 11:26 Resp 18 06/26/22 07:00 BP 113/74 06/26/22 07:00 Pulse Ox 95 06/26/22 09:07 FiO2 Intake & Output 06/25/22 06/26/22 06/26/22 18:59 06:59 18:59 Intake Total 298 118 Balance 298 118 Intake: Oral 298 118 Other: Voiding Method Toilet Toilet # Voids 1 2 - Labs CBC & Chem 7: 06/24/22 14:02 06/24/22 14:02 Labs: Abnormal Lab Results - Last 24 Hours (Table) 06/25/22 06/25/22 06/26/22 Range/Units 17:21 20:37 05:22 POC Glucose (mg/dL) 146 H 228 H (70-110) mg/dL Hemoglobin A1c 8.2 H (0.0-6.0) % 06/26/22 06/26/22 Range/Units 06:03 12:27 POC Glucose (mg/dL) 159 H 213 H (70-110) mg/dL Hemoglobin A1c (0.0-6.0) % Microbiology - Last 24 Hours (Table) 06/24/22 14:20 Blood Culture - Preliminary Blood
[2022-06-26 17:33] LABS: Glucose,Whole Blood 152 mg/dL (70-110)
[2022-06-26] MEDS ORDERED: LIDOCAINE 1% (10MG/ML) FOR IV START INTRADERMA PRN (19:17)
[2022-06-26] MEDS: LACTATED RINGERS 1,000 ML IV SCH (20:08)
[2022-06-26] MEDS: ATORVASTATIN 40 MG TAB PO SCH (20:09)
[2022-06-26 20:46] LABS: Glucose,Whole Blood 257 mg/dL (70-110)
[2022-06-27] MEDS: INSULIN ASPART (NovoLOG) 100 UNIT/ML VIAL SQ SCH ×3 (05:39→17:33)
[2022-06-27 05:42] LABS: Glucose,Whole Blood 164 mg/dL (70-110)
[2022-06-27] MEDS: lisinopriL 5 MG TAB PO SCH (08:38)
[2022-06-27] MEDS: oxyCODONE-APAP 10-325MG 1 EACH TAB PO SCH ×2 (08:38→16:56)
[2022-06-27] MEDS: HEPARIN SODIUM,PORCINE/PF 5,000 UNIT/0.5 ML SYRINGE SQ SCH ×2 (08:38→16:57)
[2022-06-27] MEDS: ASPIRIN 81 MG PO SCH (08:39)
[2022-06-27] MEDS: ISOSORBIDE MONONITRATE ER 30 MG TAB.ER.24H PO SCH (08:39)
[2022-06-27] MEDS: FUROSEMIDE 40 MG TAB PO SCH (08:39)
[2022-06-27] MEDS: PANTOPRAZOLE 40 MG TABLET PO SCH (08:39)
[2022-06-27] MEDS: NON FORMULARY DRUG (Dextroamphetamine/Amphetamine [Adderall] 30 MG Tablet) PO SCH ×2 (08:39→16:57)
[2022-06-27] MEDS: IPRATROPIUM-ALBUTEROL 3 ML NEB INHALATION PRN ×2 (09:30→19:57)
--- NOTE | 2022-06-27 10:20 | P.PN ---
Progress Note - Text Progress Note Date: 06/27/22 Patient remained stable. He still has some dysphagia. Patient scheduled for EGD in the a.m. On exam vital signs are stable. Abdomen soft nontender
[2022-06-27 12:07] LABS: Glucose,Whole Blood 361 mg/dL (70-110)
--- NOTE | 2022-06-27 14:26 | P.PN ---
Subjective Progress Note Date: 06/27/22 (Waiting for EGD tomorrow by Dr. Bernardo.) Progress note Date of service 06/27/[address] Nicole Patient seen in [id number] discussed with the patient and his in detail. Complain: Still has the chest discomfort 78/10 across the chest and does not resolved by nitroglycerin as well as no radiation to the neck Pulmonary and critical care sign off Cardiology also sign off with the understanding of the pain non-cardiac however pain is unknown etiology still present with continuous. Patient had previous history of stricture of the esophagus and silent aspiration by the test done of [facility] however video barium swallow done on 06/2403/26/2022 and the impression Deep. Filtration with less viscous modalities, no aspiration observed and rifampin to address patient therapist. Consultation with the speech therapy requested however is not available on the weekends probably will see her tomorrow Dr. Bernardo scheduled the patient for EGD tomorrow with these underlying history of stricture and dilatation of the lower esophagus in the past as well and dilatation if this needed and if it's possible relieving his chest discomfort as the case resolution specialist and office support specialist indicating no relation to the system and they don't know the etiology Patient still had the pain across the chest and he stated that this moderately severe between 7-8/10 and not resolving Patient had chronic pain syndrome and he had a pump in the right mid abdomen with the Dilantin as well as he has supplemented with Percocet. The pain clinic Dr. [facility]. On exam patient is conscious alert oriented his at bedside Temperature 98.1 F oral Heart rate ranging between 80-77 bpm regular sinus His blood pressure 136/74 mean 94. Patient on 4 L of oxygen nasal cannula with the pulse ox 96%, patient has chronic respiratory failure on home oxygen was prescribed by pulmonary Dr. Gil. Patient has history of COPD chronically with the chronic respiratory failure. On exam: Conscious alert oriented Normocephalic atraumatic Oropharynx missing teeth daily's only on the right lower jaw Neck was supple no JVD no thyromegaly no lymphadenopathy He had hyperinflation of the lung with the COPD and asked symmetrical chest decrease air entry on the basis. Abdomen: Obese positive bowel sounds multiple scarring Extremities no edema history of mild varicosities and pulses is intact new Mild anxiety stable No history of strokes in the past Assessment: Persistent chest discomfort and pain with substernal with quick squeezing in Her continuous does not resolve even with the dysphagia diet and nitroglycerin does not help at. COPD History of chronic respiratory failure. On permanent oxygen at home Obesity Cardiology sign out and pulmonary signed out. Diabetes mellitus2 with hyperglycemia P currently on insulin to scale, metformin causing him diarrhea and abdominal distention. Plan: #[address] Bernardo for her EGD and evaluation of the aspiration as he was diagnosed in the [facility] with the silent aspiration as well as if there is any stricture causing these discomfort #2 continue the current treatment. Objective - Vital Signs Vital signs: Vital Signs Temp 98.1 F 06/27/22 07:00 Pulse 77 06/27/22 09:39 Resp 16 06/27/22 07:00 BP 136/74 06/27/22 07:00 Pulse Ox 96 06/27/22 09:32 FiO2 Intake & Output 06/26/22 06/27/22 06/27/22 18:59 06:59 18:59 Intake Total 354 Balance 354 Intake: Oral 354 Other: Voiding Method Toilet # Voids 2 1 - Labs CBC & Chem 7: 06/24/22 14:02 06/24/22 14:02 Labs: Abnormal Lab Results - Last 24 Hours (Table) 06/26/22 06/26/22 06/27/22 Range/Units 17:32 20:44 05:35 POC Glucose (mg/dL) 152 H 257 H 164 H (70-110) mg/dL 06/27/22 Range/Units 12:05 POC Glucose (mg/dL) 361 H (70-110) mg/dL Microbiology - Last 24 Hours (Table) 06/24/22 14:20 Blood Culture - Preliminary Blood
--- NOTE | 2022-06-27 14:40 | P.PN ---
Subjective Progress Note Date: 06/27/22 (Waiting for EGD tomorrow) Objective - Vital Signs Vital signs: Vital Signs Temp 98.1 F 06/27/22 07:00 Pulse 77 06/27/22 09:39 Resp 16 06/27/22 07:00 BP 136/74 06/27/22 07:00 Pulse Ox 96 06/27/22 09:32 FiO2 Intake & Output 06/26/22 06/27/22 06/27/22 18:59 06:59 18:59 Intake Total 354 Balance 354 Intake: Oral 354 Other: Voiding Method Toilet # Voids 2 1 - Labs CBC & Chem 7: 06/24/22 14:02 06/24/22 14:02 Labs: Abnormal Lab Results - Last 24 Hours (Table) 06/26/22 06/26/22 06/27/22 Range/Units 17:32 20:44 05:35 POC Glucose (mg/dL) 152 H 257 H 164 H (70-110) mg/dL 06/27/22 Range/Units 12:05 POC Glucose (mg/dL) 361 H (70-110) mg/dL Microbiology - Last 24 Hours (Table) 06/24/22 14:20 Blood Culture - Preliminary Blood
[2022-06-27 17:31] LABS: Glucose,Whole Blood 141 mg/dL (70-110)
[2022-06-27] MEDS: LACTATED RINGERS 1,000 ML IV SCH (19:57)
[2022-06-27] MEDS: ATORVASTATIN 40 MG TAB PO SCH (20:01)
[2022-06-27 20:18] LABS: Glucose,Whole Blood 165 mg/dL (70-110)
[2022-06-28] MEDS: HEPARIN SODIUM,PORCINE/PF 5,000 UNIT/0.5 ML SYRINGE SQ SCH ×2 (00:05→09:07)
[2022-06-28] MEDS: oxyCODONE-APAP 10-325MG 1 EACH TAB PO SCH ×2 (00:05→09:11)
[2022-06-28 05:29] LABS: Glucose,Whole Blood 163 mg/dL (70-110)
[2022-06-28] MEDS: INSULIN ASPART (NovoLOG) 100 UNIT/ML VIAL SQ SCH ×2 (05:36→12:23)
[2022-06-28 07:19] VITALS: TEMP 98.2
[2022-06-28] MEDS ORDERED: PROPOFOL 10 MG/ML 20 ML VIAL IV ONE (07:52)
[2022-06-28] MEDS ORDERED: SODIUM CHLORIDE 0.9% 500 ML 500 ML IV ONE ×2 (07:59)
--- NOTE | 2022-06-28 08:18 | P.PCN ---
Date of Procedure: 06/28/22 Description of Procedure: PREOPERATIVE DIAGNOSIS: Aspiration pneumonia Dysphagia Atypical chest pain POSTOPERATIVE DIAGNOSIS: Lower esophageal spasm with stenosis Dysphagia Atypical chest pain OPERATION: Esophagogastroduodenoscopy with rigid dilator over the guidewire 57 Fr with dilation Esophagogastroduodenoscopy with cold forceps biopsies stomach/antrum SURGEON: Jaclyn Ware MD ANESTHESIA: MAC. INDICATIONS: The patient is a 71-year-old male who presents with a history of gastroesophage al reflux disease with abdominal pain. Benefits and risks of the procedure were described. Informed consent was obtained. DESCRIPTION: The patient was brought into the endoscopy suite and laid in the left lateral decubitus position. After a timeout was confirmed, the procedure was initiated. An Olympus gastroscope was passed into the posterior oropharynx where an upper esophageal stenosis was identified. The scope was passed down to the distal esophagus. To address the lower esophageal stenosis, rigid dilator over guidewire was selected. Next using an Togolese rigid dilator, a guidewire was placed through the gastroscope. Next the scope was withdrawn. A 57-German rigid Togolese dilator was passed carefully along the posterior oropharynx to 45 cm and left in place for 2-3 minutes stretch. The dilator was withdrawn including the guidewire. The scope was reentered along the posterior oropharynx with no findings of full- thickness tear of the upper esophageal sphincter. Additional findings below. Within the stomach, severe acute gastritis with gastric ulcerations were identified along the body of the stomach with cold forceps biopsies obtained. The large esophageal valve was evaluated with Hill grade 2 lower esophageal valve. LA grade A erosive esophagitis was identified. No full-thickness injury was encountered. The GI tract was desufflated. The patient tolerated the procedure well. FINDINGS: Upper esophageal stenosis dilated 57-German rigid dilator Diaphragmatic hiatus at 42 cm from the incisors Squamocolumnar junction 42 cm from the incisors. Gastric body and fundus cold forceps biopsies obtained LA grade A erosive esophagitis Hill grade 1 lower esophageal valve. Distal esophageal spasm RECOMMENDATIONS: Omeprazole 40 mg daily Recommend warm beverages prior to eating for esophageal spasm
[2022-06-28] MEDS: ASPIRIN 81 MG PO SCH (09:08)
[2022-06-28] MEDS: FUROSEMIDE 40 MG TAB PO SCH (09:08)
[2022-06-28] MEDS: PANTOPRAZOLE 40 MG TABLET PO SCH (09:08)
[2022-06-28] MEDS: ISOSORBIDE MONONITRATE ER 30 MG TAB.ER.24H PO SCH (09:08)
[2022-06-28] MEDS: lisinopriL 5 MG TAB PO SCH (09:08)
[2022-06-28] MEDS: NON FORMULARY DRUG (Dextroamphetamine/Amphetamine [Adderall] 30 MG Tablet) PO SCH (09:12)
[2022-06-28 10:24] VITALS: RESP 18
[2022-06-28 10:25] VITALS: BP 105/65; PULSE 71
[2022-06-28 12:10] LABS: Glucose,Whole Blood 211 mg/dL (70-110)
--- NOTE | 2022-06-28 13:17 | P.DS ---
Providers Date of admission: 06/24/22 16:30 Expected date of discharge: 06/28/22 Attending physician: Patrick Nicole Consults: 06/24/22 16:29 Consult Physician Urgent Consulting Provider: [facility] Consult Reason/Comments: Chest pain, dyspnea Do you want consulting provider notified?: Yes 06/25/22 07:32 Consult Physician Routine Consulting Provider: Latisha Tinoco Consult Reason/Comments: CXR basilar infiltrates Do you want consulting provider notified?: Yes 06/25/22 10:36 Consult Physician Routine Consulting Provider: Jaclyn Ware Consult Reason/Comments: upper abdominal pain, aspiration during esophagram Do you want consulting provider notified?: Yes Primary care physician: Patrick Nicole Dictation discharge summary Date of service 06/28/[address] Rogel. Final diagnoses: #1 chest pain with admission across the chest with normal EKG and troponin #2 consultation with pulmonary and cardiology with the noncardiac chest pain. #3 EGD with the finding by Dr. Ware on today 06/28/2022 #4 chronic respiratory failure with the underlying COPD and interstitial lung disease on the basis. Pulmonary. #5 chronic pain syndrome with right mid abdomen Dilaudid-HP pump and monitored by Dr. [facility] pain clinic. Number a upper esophageal stenosis dilated with 75-Italian rigid dilator Number be diaphragmatic hiatus is at 42 cm from the incisor Squamous columnar junction 42 cm from the incisor Gastric body and fundus cold forceps biopsies obtained LA grade a erosive esophagitis He'll grade 1 lower esophageal valve Distal esophageal spasm with the recommendation omeprazole 40 mg daily warm beverage prior to eating for esophageal spasm. Patient seen and evaluated today [id number] His chest discomfort has been resolved completely. And no pain or swallowing. Feeling great and he is ready to go home will have a clearance from Dr. Ware before discharge. Exam on discharge his vital signs stable and afebrile pulse 71 bpm regular sinus, respiratory rate 18/m, blood pressure 105/65 with a mean 78 and nasal cannula 4 L with chronic respiratory failure pulse ox 97 Patient is conscious alert oriented 3 head was normocephalic and atraumatic Oropharynx normal swallowing Neck was supple no JVD no thyromegaly no lymphadenopathy Chest clear to auscultation percussion with increased anteroposterior diameter with history of COPD and the pain has been resolved completely. The heart regular sinus rhythm The abdomen soft positive bowel sound no pain Extremities no edema and positive pulses. Psychiatry stable Neurology stable Assessment patient stable general condition to be discharged home today to be followed as outpatient in 3 days in the office and also followed by Dr. Sweeney as outpatient. Continue home medication and the pain medication by his pain physician Follow-up with Dr. Gil and on when necessary basis follow-up with cardiology on a when necessary basis. Patient to continue omeprazole 40 mg once a day a.m. her advise Dr. Ware. Plan - Discharge Summary New Discharge Prescriptions: New INSULIN ASPART (NovoLOG) [NovoLOG (formulary)] 5 unit SQ AC-TID #10 ml Continue Spironolactone [Aldactone] 25 mg PO DAILY tiZANidine HCL 4 mg PO BID PRN PRN Reason: Pain lisinopriL [Zestril] 5 mg PO DAILY Atorvastatin [Lipitor] 20 mg PO HS oxyCODONE-APAP 10-325MG [Percocet 10-325 mg] 1 tab PO Q8H Ipratropium Nebulized [Atrovent Nebulized 0.2 MG/ML] 0.5 mg INHALATION RT-QID Dextroamphetamine/Amphetamine [Adderall] 30 mg PO BID@0900,1600 Isosorbide Dinitrate 30 mg PO DAILY Discontinued Furosemide [Lasix] 40 mg PO DAILY Dicyclomine [Bentyl] 20 mg PO QID No Action Omeprazole 40 mg PO DAILY Albuterol Sulfate [Albuterol Sulfate Hfa] 1 puff PO RT-BID Discharge Medication List Spironolactone [Aldactone] 25 mg PO DAILY 01/27/15 [History] Omeprazole 40 mg PO DAILY 07/29/21 [History] lisinopriL [Zestril] 5 mg PO DAILY 07/29/21 [History] oxyCODONE-APAP 10-325MG [Percocet 10-325 mg] 1 tab PO Q8H 07/29/21 [History] tiZANidine HCL 4 mg PO BID PRN 07/29/21 [History] Albuterol Sulfate [Albuterol Sulfate Hfa] 1 puff PO RT-BID 06/24/22 [History] Atorvastatin [Lipitor] 20 mg PO HS 06/24/22 [History] Dextroamphetamine/Amphetamine [Adderall] 30 mg PO BID@0900,1600 06/24/22 [History] Ipratropium Nebulized [Atrovent Nebulized 0.2 MG/ML] 0.5 mg INHALATION RT-QID 06/24/22 [History] Isosorbide Dinitrate 30 mg PO DAILY 06/24/22 [History] INSULIN ASPART (NovoLOG) [NovoLOG (formulary)] 5 unit SQ AC-TID #10 ml 06/28/22 [Rx] Follow up Appointment(s)/Referral(s): Patrick Nicole MD [Primary Care Provider] - 1-2 days
== END 2022-06-28 14:41 | disposition home or self-care (01) ==
LOC: EC 13:27 → 6NMEDSUR 16:30
PROVIDERS: ADMIT Internal Medicine; ATTEND Internal Medicine
DX: K29.50 Unspecified chronic gastritis without bleeding (principal); K22.2 Esophageal obstruction; J96.11 Chronic respiratory failure with hypoxia; I11.0 Hypertensive heart disease with heart failure; I50.9 Heart failure, unspecified; K21.9 Gastro-esophageal reflux disease without esophagitis; E11.40 Type 2 diabetes mellitus with diabetic neuropathy, unspecified; K29.00 Acute gastritis without bleeding; K22.4 Dyskinesia of esophagus; E78.5 Hyperlipidemia, unspecified; J43.9 Emphysema, unspecified; I27.20 Pulmonary hypertension, unspecified; G47.33 Obstructive sleep apnea (adult) (pediatric); I25.10 Atherosclerotic heart disease of native coronary artery without angina pectoris; G89.4 Chronic pain syndrome; J98.11 Atelectasis; E11.65 Type 2 diabetes mellitus with hyperglycemia; E66.9 Obesity, unspecified; Z79.899 Other long term (current) drug therapy; Z91.041 Radiographic dye allergy status; Z86.16 Personal history of COVID-19; Z86.718 Personal history of other venous thrombosis and embolism; Z87.01 Personal history of pneumonia (recurrent); Z90.49 Acquired absence of other specified parts of digestive tract; Z80.0 Family history of malignant neoplasm of digestive organs; Z20.822 Contact with and (suspected) exposure to COVID-19; Z99.81 Dependence on supplemental oxygen; Z87.891 Personal history of nicotine dependence; Z68.35 Body mass index [BMI] 35.0-35.9, adult; Z98.42 Cataract extraction status, left eye; Z98.41 Cataract extraction status, right eye; Z88.8 Allergy status to other drugs, medicaments and biological substances
CPT/HCPCS: 96372 ×5; 99285; 36415; 94640 ×7; 94760 ×2; 93005; 92526; 92611; 88305; 83880; 80061; 80053; 83605; 83735; 84484; 85025; 85610; 85730; 83036; 87636; 74230; 71046; 43239; 43249; G0378 ×5; J2704; J1644 ×5

== ENCOUNTER 2022-07-22 14:43 | Inpatient (IN) | payer MEDICARE ==
[2022-07-22 15:40] LABS: Basophils % (A) 0 %; Eosinophils # (A) 0.2 k/uL (0-0.7); Eosinophils % (A) 2 %; HCT 41.9 % (39.0-53.0); HGB 13.8 gm/dL (13.0-17.5); Lymphocytes # (A) 1.8 k/uL (1.0-4.8); Lymphocytes % (A) 18 %; MCH 30.8 pg (25.0-35.0); MCHC 33.1 g/dL (31.0-37.0); MCV 93.1 fL (80.0-100.0); Mean Platelet Volume 7.8; Monocytes # (A) 0.5 k/uL (0-1.0); Monocytes % (A) 5 %; Neutrophils # (A) 7.4 k/uL (1.3-7.7); Neutrophils % (A) 74 %; Platelet Count 247 k/uL (150-450); RDW 13.1 % (11.5-15.5)
[2022-07-22] MEDS ORDERED: MORPHINE SULFATE 4 MG/ML SYRINGE IV STA ×2 (15:50→18:27)
[2022-07-22 15:53] LABS: ALT 19 U/L (4-49); AST 22 U/L (17-59); African American GFR (CKD) >90 (>60 ml/min/1.73 sqM); Albumin 3.6 g/dL (3.5-5.0); Alkaline Phosphatase 83 U/L (38-126); Anion Gap 8 mmol/L; Blood Urea Nitrogen 12 mg/dL (9-20); Calcium 8.7 mg/dL (8.4-10.2); Carbon Dioxide 31 mmol/L (22-30); Chloride 99 mmol/L (98-107); Glucose 307 mg/dL (74-99); Non-African American GFR(CKD) >90 (>60 ml/min/1.73 sqM); Potassium 3.7 mmol/L (3.5-5.1); Sodium 138 mmol/L (137-145); Total Bilirubin 0.8 mg/dL (0.2-1.3); Total Protein 6.5 g/dL (6.3-8.2)
--- NOTE | 2022-07-22 15:56 | ED ---
Abdominal Pain HPI - General Chief Complaint: Abdominal Pain Stated Complaint: MANNY Time Seen by Provider: 07/22/22 15:42 Source: patient, family Mode of arrival: wheelchair - History of Present Illness Initial Comments: This patient is 71-year-old man who presents with complaint of right-sided abdominal pain that he states feels identical to pain he had related to adhesions in the abdomen. He states that he had surgery with Dr. Nelson last year to have the adhesions removed but she told him she was not able to resolve all of them at that time. Patient has had increasing pain over past days. He has continued to pass flatus. No vomiting but nausea. MD Complaint: abdominal pain -: days(s) Location: LUQ, RUQ Radiation: none Severity: severe Quality: aching Consistency: constant Improves With: nothing Worsens With: nothing Associated Symptoms: nausea - Related Data Home Medications Medication Instructions Recorded Confirmed Spironolactone [Aldactone] 25 mg PO DAILY 01/27/15 07/22/22 Omeprazole 40 mg PO DAILY 07/29/21 07/22/22 lisinopriL [Zestril] 5 mg PO DAILY 07/29/21 07/22/22 oxyCODONE-APAP 10-325MG [Percocet 1 tab PO Q8H 07/29/21 07/22/22 10-325 mg] tiZANidine HCL 4 mg PO BID PRN 07/29/21 07/22/22 Albuterol Sulfate [Albuterol 2 puff PO RT-QID 06/24/22 07/22/22 Sulfate Hfa] Atorvastatin [Lipitor] 20 mg PO HS 06/24/22 07/22/22 Dextroamphetamine/Amphetamine 30 mg PO BID@0900,1600 06/24/22 07/22/22 [Adderall] Ipratropium Nebulized [Atrovent 0.5 mg INHALATION RT-QID 06/24/22 07/22/22 Nebulized 0.2 MG/ML] Isosorbide Dinitrate 30 mg PO DAILY 06/24/22 07/22/22 INSULIN ASPART (NovoLOG) [NovoLOG 5 unit SQ AC-TID PRN 07/22/22 07/22/22 (formulary)] Allergies Allergy/AdvReac Type Severity Reaction Status Date / Time bee pollen Allergy Anaphylaxis Verified 07/22/22 18:23 Iodinated Contrast Media Allergy Anaphylaxis Verified 07/22/22 18:23 [Iodinated Contrast Media - IV Dye] metformin AdvReac Abdominal Verified 07/22/22 18:23 Pain Review of Systems ROS Statement: Those systems with pertinent positive or pertinent negative responses have been documented in the HPI. ROS Other: All systems not noted in ROS Statement are negative. Constitutional: Denies: fever, chills Respiratory: Reports: cough, dyspnea (Underlying COPD) Cardiovascular: Reports: edema (Chronic). Denies: chest pain, palpitations, syncope Gastrointestinal: Reports: abdominal pain, nausea. Denies: vomiting, diarrhea, constipation, melena, hematochezia Genitourinary: Denies: dysuria, hematuria Musculoskeletal: Denies: back pain Skin: Denies: rash Neurological: Denies: headache, weakness Past Medical History Past Medical History: COPD, Deep Vein Thrombosis (DVT), GERD/Reflux, Hyperlipid emia, Hypertension, Pneumonia, Sleep Apnea/CPAP/BIPAP Additional Past Medical History / Comment(s): COVID IN JANUARY 2021. CHRONIC ABD PAIN HAS NOT FOUND DEFINITIVE CAUSE but has a abdominal dilaudid pain pump. Hx. of Diverticulitis, Pneumonia (2018), oxygen @ 5L ATC, chronic back pain, uses CPAP, hx. DVT RT leg , neuropathy feet, hx of pancreatitis.bilateral cataracts removed History of Any Multi-Drug Resistant Organisms: None Reported Past Surgical History: Appendectomy, Bowel Resection, Cholecystectomy Additional Past Surgical History / Comment(s): BOWEL RESECTION. Colonoscopy, exp. laparotomy, EGD, LASIK EYE SURGERY, pain pump Past Anesthesia/Blood Transfusion Reactions: No Reported Reaction Past Psychological History: No Psychological Hx Reported Smoking Status: Former smoker Past Alcohol Use History: Rare Past Drug Use History: None Reported - Past Family History Brother(s) Family Medical History: Cancer Additional Family Medical History / Comment(s): Colon General Exam General appearance: alert, in no apparent distress Head exam: Present: atraumatic, normocephalic Eye exam: Present: normal appearance. Absent: scleral icterus, conjunctival injection Neck exam: Present: normal inspection Respiratory exam: Present: normal lung sounds bilaterally, wheezes. Absent: rales, rhonchi, stridor, accessory muscle use, decreased breath sounds Cardiovascular Exam: Present: regular rate, normal rhythm, normal heart sounds. Absent: systolic murmur, diastolic murmur, rubs, gallop GI/Abdominal exam: Present: soft, tenderness, other (There is a pain pump in the right side of the abdomen). Absent: distended, guarding, rebound, rigid Extremities exam: Present: normal inspection, normal capillary refill. Absent: pedal edema, calf tenderness Back exam: Present: normal inspection. Absent: CVA tenderness (R), CVA tenderness (L) Neurological exam: Present: alert Skin exam: Present: warm, dry, intact, normal color. Absent: rash Course Vital Signs 07/22/22 07/22/22 07/22/22 15:03 17:17 19:15 Temperature 98 F Pulse Rate 93 76 80 Respiratory 20 18 18 Rate Blood Pressure 125/80 124/91 131/90 O2 Sat by Pulse 94 L 97 96 Oximetry Medical Decision Making - Lab Data Result diagrams: 07/22/22 15:28 07/22/22 15:28 Lab Results 07/22/22 07/22/22 07/22/22 Range/Units 15:28 15:28 15:28 WBC 10.0 (3.8-10.6) k/uL RBC 4.50 (4.30-5.90) m/uL Hgb 13.8 (13.0-17.5) gm/dL Hct 41.9 (39.0-53.0) % MCV 93.1 (80.0-100.0) fL MCH 30.8 (25.0-35.0) pg MCHC 33.1 (31.0-37.0) g/dL RDW 13.1 (11.5-15.5) % Plt Count 247 (150-450) k/uL MPV 7.8 Neutrophils % 74 % Lymphocytes % 18 % Monocytes % 5 % Eosinophils % 2 % Basophils % 0 % Neutrophils # 7.4 (1.3-7.7) k/uL Lymphocytes # 1.8 (1.0-4.8) k/uL Monocytes # 0.5 (0-1.0) k/uL Eosinophils # 0.2 (0-0.7) k/uL Basophils # 0.0 (0-0.2) k/uL Sodium 138 (137-145) mmol/L Potassium 3.7 (3.5-5.1) mmol/L Chloride 99 (98-107) mmol/L Carbon Dioxide 31 H (22-30) mmol/L Anion Gap 8 mmol/L BUN 12 (9-20) mg/dL Creatinine 0.35 L (0.66-1.25) mg/dL Est GFR (CKD-EPI)AfAm >90 (>60 ml/min/1.73 sqM) Est GFR (CKD-EPI)NonAf >90 (>60 ml/min/1.73 sqM) Glucose 307 H (74-99) mg/dL Plasma Lactic Acid Kamran 2.0 (0.7-2.0) mmol/L Calcium 8.7 (8.4-10.2) mg/dL Total Bilirubin 0.8 (0.2-1.3) mg/dL AST 22 (17-59) U/L ALT 19 (4-49) U/L Alkaline Phosphatase 83 (38-126) U/L C-Reactive Protein (<1.0) mg/dL Total Protein 6.5 (6.3-8.2) g/dL Albumin 3.6 (3.5-5.0) g/dL Urine Color Urine Appearance (Clear) Urine pH (5.0-8.0) Ur Specific [place] (1.001-1.035) Urine Protein (Negative) Urine Glucose (UA) (Negative) Urine Ketones (Negative) Urine Blood (Negative) Urine Nitrite (Negative) Urine Bilirubin (Negative) Urine Urobilinogen (<2.0) mg/dL Ur Leukocyte Esterase (Negative) 07/22/22 07/22/22 Range/Units 15:28 16:25 WBC (3.8-10.6) k/uL RBC (4.30-5.90) m/uL Hgb (13.0-17.5) gm/dL Hct (39.0-53.0) % MCV (80.0-100.0) fL MCH (25.0-35.0) pg MCHC (31.0-37.0) g/dL RDW (11.5-15.5) % Plt Count (150-450) k/uL MPV Neutrophils % % Lymphocytes % % Monocytes % % Eosinophils % % Basophils % % Neutrophils # (1.3-7.7) k/uL Lymphocytes # (1.0-4.8) k/uL Monocytes # (0-1.0) k/uL Eosinophils # (0-0.7) k/uL Basophils # (0-0.2) k/uL Sodium (137-145) mmol/L Potassium (3.5-5.1) mmol/L Chloride (98-107) mmol/L Carbon Dioxide (22-30) mmol/L Anion Gap mmol/L BUN (9-20) mg/dL Creatinine (0.66-1.25) mg/dL Est GFR (CKD-EPI)AfAm (>60 ml/min/1.73 sqM) Est GFR (CKD-EPI)NonAf (>60 ml/min/1.73 sqM) Glucose (74-99) mg/dL Plasma Lactic Acid Kamran (0.7-2.0) mmol/L Calcium (8.4-10.2) mg/dL Total Bilirubin (0.2-1.3) mg/dL AST (17-59) U/L ALT (4-49) U/L Alkaline Phosphatase (38-126) U/L C-Reactive Protein 14.3 H (<1.0) mg/dL Total Protein (6.3-8.2) g/dL Albumin (3.5-5.0) g/dL Urine Color Yellow Urine Appearance Clear (Clear) Urine pH 6.5 (5.0-8.0) Ur Specific [place] 1.038 H (1.001-1.035) Urine Protein Trace H (Negative) Urine Glucose (UA) 4+ H (Negative) Urine Ketones Trace H (Negative) Urine Blood Negative (Negative) Urine Nitrite Negative (Negative) Urine Bilirubin Negative (Negative) Urine Urobilinogen 3.0 (<2.0) mg/dL Ur Leukocyte Esterase Negative (Negative) Disposition Clinical Impression: Abdominal pain Disposition: ADMITTED IP TO THIS [facility] Condition: Good Is patient prescribed a controlled substance at d/c from ED?: No
[2022-07-22 16:37] LABS: Appearance,Urine Clear (Clear); Bilirubin,Urine Negative (Negative); Blood,Urine Negative (Negative); Color,Urine Yellow; Glucose,Urine (UA) 4+ (Negative); Ketones,Urine Trace (Negative); Leukocyte Esterase,Urine Negative (Negative); Nitrite,Urine Negative (Negative); PH, Urine 6.5 (5.0-8.0); Protein,Urine Trace (Negative); Specific Gravity,Urine 1.038 (1.001-1.035)
--- NOTE | 2022-07-22 16:57 | CT ---
EXAMINATION TYPE: CT abdomen pelvis wo con CT DLP: 1172.4 mGycm, Automated exposure control for dose reduction was used. DATE OF EXAM: 07/22/2022 4:45 PM COMPARISON: CT abdomen pelvis most recent from 01/03/2019 CLINICAL INDICATION:Male, 71 years old with history of abdominal pain; right sided abdominal pain TECHNIQUE: Axial CT of the abdomen and pelvis. Sagittal and coronal reformats were created on a [employer] workstation. Contrast used: None Oral contrast used: without Oral Contrast FINDINGS: LOWER CHEST: Left lower lung airspace opacities. Emphysema changes seen within the right lower lung p redominantly the right middle lobe. ABDOMEN LIVER: Unremarkable GALLBLADDER AND BILE DUCTS: The gallbladder is surgically absent. PANCREAS: Unremarkable. SPLEEN: Unremarkable. ADRENAL GLANDS: Unremarkable. KIDNEYS AND URETERS: No evidence of hydronephrosis or renal calculus. The ureters are unremarkable. PELVIS BLADDER: Unremarkable REPRODUCTIVE: Unremarkable. ABDOMEN & PELVIS STOMACH AND BOWEL: No evidence of bowel obstruction. Scattered colonic diverticula present. The appen grant is not well visualized there is streak artifact in the cecum secondary to Electronic device. PERITONEUM/RETROPERITONEUM: No evidence of pneumoperitoneum or free fluid. VASCULATURE: Moderate atherosclerotic calcifications are present throughout the abdominal aorta and i ts branches. No evidence of aortic aneurysm. MUSCULOSKELETAL: No acute osseous abnormalities. Moderate disc degeneration changes are present throu ghout the thoracolumbar spine. Electronic device distal tip terminates in the spine. There is straigh tening of the spine. Multilevel disc bulging is present with at least moderate to severe spinal canal stenosis at L3-L4. LYMPH NODES: No gross evidence for lymphadenopathy. SOFT TISSUE/ABDOMINAL WALL: Electronic device is in the anterior abdominal wall on the right which re sults in streak artifact. IMPRESSION: 1. No definitive right sided acute process. The appendix is not well appreciated there is electronic device which results in streak artifact and limits evaluation. No obstructive uropathy or renal calc ulus. No evidence for bowel obstruction. 2. Left lower lung airspace opacities correlate for pneumonia/aspiration. 3. Moderate to severe L3-L4 spinal canal stenosis.
[2022-07-22] MEDS ORDERED: INSULIN REGULAR 100 UNIT/ML VIAL (IV) IV STA (18:27)
[2022-07-22] MEDS ORDERED: ONDANSETRON 4 MG/2 ML VIAL IVP PRN (19:04)
[2022-07-22] MEDS ORDERED: MORPHINE SULFATE 4 MG/ML SYRINGE IV PRN (19:04)
[2022-07-22] MEDS ORDERED: NALOXONE 0.4 MG/ML 1 ML VIAL IV PRN (19:04)
--- NOTE | 2022-07-22 19:15 | P.GSHP ---
History of Present Illness H&P Date: 07/22/22 CHIEF COMPLAINT: Intractable abdominal pain HISTORY OF PRESENT ILLNESS: The patient is a 71 year old male recently discharged from the hospital over a month ago with atypical chest pain and epigastric abdominal pain. He was seen in the office 2 weeks ago reporting doing well. He comes in with acute right lower quadrant abdominal pain. He has personal history of severe intra-abdominal adhesions including bowel resections in the past. Last loss of adhesions over one year ago. Due to severity of abdominal pain 10 out of 10 nature of his pain, he presented to the emergency room. Reports difficulty with breathing. He does have chronic obstructive pulmonary disease and oxygen dependent. Patient presents to the emergency room due to severe abdominal pain. PAST MEDICAL HISTORY: See list and reviewed PAST SURGICAL HISTORY: See list and reviewed MEDICATIONS: See list and reviewed ALLERGIES: See list and reviewed SOCIAL HISTORY: See list and reviewed FAMILY HISTORY: See list and reviewed REVIEW OF ORGAN SYSTEMS: CONSTITUTIONAL: No fevers or chills. No recent weight loss. EYES: Denies any trouble with vision. No glasses. HEENT: No difficulties with hearing. No nosebleeds. No difficulty swallowing. RESPIRATORY: Recent pneumonia over 1-2 months ago. Oxygen dependent chronic obstructive pulmonary disease CARDIOVASCULAR: No recent chest pain. Has hypertensive heart disease. Has obstructive sleep apnea. GASTROINTESTINAL: Denies fatty food intolerance. Personal history of bowel resection. Past history of pancreatitis. Has gastroesophageal reflux disease. GENITOURINARY: Denies any blood in urine or increased urinary frequency. NEUROLOGICAL: Has a neuropathy of the feet. No recent stroke. MUSCULOSKELETAL: Has back pain, stiffness or joint arthritis. SKIN: No current skin cancer. No rash. PSYCHIATRIC: Denies current depression or suicidal thoughts. ENDOCRINE: Denies current thyroid disorders. Denies any blood sugar glucose intolerance. HEME/LYMPHATIC: Denies any lumps and bumps around the neck. No recent deep venous thrombosis. Past thrombotic event. ALLERGY/IMMUNOLOGY: No immunoglobulin therapy. No immune deficiencies. BREAST: Denies current breast lumps, pain or nipple discharge. PHYSICAL EXAM: VITALS: Reviewed CONSTITUTIONAL: Well developed and in moderate distress. EYES: Conjuctivae without sclera icterus. Extraocular movements grossly intact. HEAD, EARS, NOSE, THROAT: Moist buccal mucosa. Head is atraumatic, normocephalic . Hears conversational speech. No nasal drainage. NECK: Supple. No JV distention. No thyroidomegaly. RESPIRATORY: Non-labored respirations and equal bilateral excursions. No gross wheezes. CARDIOVASCULAR: Palpable 2+ radial pulses. ABDOMEN: Tender right lower quadrant, moderate severe. Palpable pain pump at right lower quadrant. LYMPH: No neck lymphadenopathy. MUSCULOSKELETAL: No clubbing cyanosis or edema SKIN: Warm and well perfused with good skin turgor. NEUROLOGIC: Cranial nerves II through XII grossly intact. No focal or lateralizing signs. PSYCH: Appropriate affect. Alert and oriented to person, place and time. Displays appropriate insight. CLINCAL LABS: Reviewed. WBC normal. IMAGING: Independently reviewed. CT of the abdomen and pelvis demonstrates stool burden of the transverse descending colon. Pain pump along the subcutaneous tissue of the right lower abdomen. No free air. This is my independent interpretation. RADIOLOGY: Report reviewed RECORDS: previous old records reviewed operative report July 2021 demonstrated a severe abdominal adhesions ASSESSMENT: 1. Intractable abdominal right upper/right lower quadrant pain due to peritoneal adhesions 2. Chronic pain syndrome 3. Status post pain pump insertion, right lower quadrant 4. Morbid obesity due to excess calories, BMI 36.8 5. Congestive heart failure 6. Ischemic cardiomyopathy 7. Chronic anticoagulant use 8. Chronic obstructive pulmonary disease with dependence on oxygen 9. Neuropathy 10. 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 11. History of pneumonia, for 1 month PLAN: 1. Patient comes in with intractable abdominal pain and multiple hospitalizations related to his pain. Recommend admission with urgent lysis of adhesions, robotic-assisted approach. 2. He is elevated risk due to pre-existing history of multiple comorbidities, chronic obstructive pulmonary disease, moderate to severe oxygen dependent. 3. Medical management per medicine ADVANCE DIRECTIVE: Thank you for this kind consultation. Past Medical History Past Medical History: COPD, Deep Vein Thrombosis (DVT), GERD/Reflux, Hyperlipidemia, Hypertension, Pneumonia, Sleep Apnea/CPAP/BIPAP Additional Past Medical History / Comment(s): COVID IN JANUARY 2021. CHRONIC ABD PAIN HAS NOT FOUND DEFINITIVE CAUSE but has a abdominal dilaudid pain pump. Hx. of Diverticulitis, Pneumonia (2018), oxygen @ 5L ATC, chronic back pain, uses CPAP, hx. DVT RT leg , neuropathy feet, hx of pancreatitis.bilateral cataracts removed History of Any Multi-Drug Resistant Organisms: None Reported Past Surgical History: Appendectomy, Bowel Resection, Cholecystectomy Additional Past Surgical History / Comment(s): BOWEL RESECTION. Colonoscopy, exp. laparotomy, EGD, LASIK EYE SURGERY, pain pump Past Anesthesia/Blood Transfusion Reactions: No Reported Reaction Past Psychological History: No Psychological Hx Reported Smoking Status: Former smoker Past Alcohol Use History: Rare Past Drug Use History: None Reported - Past Family History Brother(s) Family Medical History: Cancer Additional Family Medical History / Comment(s): Colon Medications and Allergies Home Medications Medication Instructions Recorded Confirmed Type Spironolactone [Aldactone] 25 mg PO DAILY 01/27/15 07/22/22 History Omeprazole 40 mg PO DAILY 07/29/21 07/22/22 History lisinopriL [Zestril] 5 mg PO DAILY 07/29/21 07/22/22 History oxyCODONE-APAP 10-325MG [Percocet 1 tab PO Q8H 07/29/21 07/22/22 History 10-325 mg] tiZANidine HCL 4 mg PO BID PRN 07/29/21 07/22/22 History Albuterol Sulfate [Albuterol 2 puff PO RT-QID 06/24/22 07/22/22 History Sulfate Hfa] Atorvastatin [Lipitor] 20 mg PO HS 06/24/22 07/22/22 History Dextroamphetamine/Amphetamine 30 mg PO BID@0900,1600 06/24/22 07/22/22 History [Adderall] Ipratropium Nebulized [Atrovent 0.5 mg INHALATION RT-QID 06/24/22 07/22/22 History Nebulized 0.2 MG/ML] Isosorbide Dinitrate 30 mg PO DAILY 06/24/22 07/22/22 History INSULIN ASPART (NovoLOG) [NovoLOG 5 unit SQ AC-TID PRN 07/22/22 07/22/22 History (formulary)] Allergies Allergy/AdvReac Type Severity Reaction Status Date / Time bee pollen Allergy Anaphylaxis Verified 07/22/22 18:23 Iodinated Contrast Media Allergy Anaphylaxis Verified 07/22/22 18:23 [Iodinated Contrast Media - IV Dye] metformin AdvReac Abdominal Verified 07/22/22 18:23 Pain Surgical - Exam Vital Signs Temp Pulse Resp BP Pulse Ox 98 F 93 20 125/80 94 L 07/22/22 15:03 07/22/22 15:03 07/22/22 15:03 07/22/22 15:03 07/22/22 15:03 Results - Labs 07/22/22 15:28 07/22/22 15: Abnormal Lab Results - Last 24 Hours (Table) 07/22/22 07/22/22 07/22/22 Range/Units 15: 15: 16:25 Carbon Dioxide 31 H (22-30) mmol/L Creatinine 0.35 L (0.66-1.25) mg/dL Glucose 307 H (74-99) mg/dL C-Reactive Protein 14.3 H (<1.0) mg/dL Ur Specific [place] 1.038 H (1.001-1.035) Urine Protein Trace H (Negative) Urine Glucose (UA) 4+ H (Negative) Urine Ketones Trace H (Negative) Diabetes panel 07/22/22 Range/Units 15: Sodium 138 (137-145) mmol/L Potassium 3.7 (3.5-5.1) mmol/L Chloride 99 (98-107) mmol/L Carbon Dioxide 31 H (22-30) mmol/L BUN 12 (9-20) mg/dL Creatinine 0.35 L (0.66-1.25) mg/dL Glucose 307 H (74-99) mg/dL Calcium 8.7 (8.4-10.2) mg/dL AST 22 (17-59) U/L ALT 19 (4-49) U/L Alkaline Phosphatase 83 (38-126) U/L Total Protein 6.5 (6.3-8.2) g/dL Albumin 3.6 (3.5-5.0) g/dL Calcium panel 07/22/22 Range/Units 15:28 Calcium 8.7 (8.4-10.2) mg/dL Albumin 3.6 (3.5-5.0) g/dL Pituitary panel 07/22/22 Range/Units 15: Sodium 138 (137-145) mmol/L Potassium 3.7 (3.5-5.1) mmol/L Chloride 99 (98-107) mmol/L Carbon Dioxide 31 H (22-30) mmol/L BUN 12 (9-20) mg/dL Creatinine 0.35 L (0.66-1.25) mg/dL Glucose 307 H (74-99) mg/dL Calcium 8.7 (8.4-10.2) mg/dL Adrenal panel 07/22/22 Range/Units 15:28 Sodium 138 (137-145) mmol/L Potassium 3.7 (3.5-5.1) mmol/L Chloride 99 (98-107) mmol/L Carbon Dioxide 31 H (22-30) mmol/L BUN 12 (9-20) mg/dL Creatinine 0.35 L (0.66-1.25) mg/dL Glucose 307 H (74-99) mg/dL Calcium 8.7 (8.4-10.2) mg/dL Total Bilirubin 0.8 (0.2-1.3) mg/dL AST 22 (17-59) U/L ALT 19 (4-49) U/L Alkaline Phosphatase 83 (38-126) U/L Total Protein 6.5 (6.3-8.2) g/dL Albumin 3.6 (3.5-5.0) g/dL
[2022-07-22 19:16] LABS: Glucose,Whole Blood 218 mg/dL (70-110)
[2022-07-22] MEDS ORDERED: INSULIN ASPART (NovoLOG) 100 UNIT/ML VIAL SQ PRN (19:19)
[2022-07-22] MEDS ORDERED: tiZANidine 4 MG TAB PO PRN (19:19)
[2022-07-22] MEDS: SODIUM CHLORIDE 0.9% 1,000 ML IV SCH (19:40)
[2022-07-22] MEDS: oxyCODONE-APAP 10-325MG 1 EACH TAB PO SCH (20:12)
[2022-07-22] MEDS: IPRATROPIUM 0.5 MG/2.5 ML NEBU INHALATION SCH (20:27)
[2022-07-22] MEDS: ALBUTEROL HFA INHALER INHALATION SCH (20:27)
[2022-07-22] MEDS: ATORVASTATIN 20 MG TAB PO SCH (20:55)
[2022-07-23] MEDS: HYDROmorphone 1 MG/ML 1 ML SYRINGE IVP PRN ×4 (00:24→21:56)
[2022-07-23] MEDS: oxyCODONE-APAP 10-325MG 1 EACH TAB PO SCH ×3 (03:20→21:51)
[2022-07-23] MEDS: SODIUM CHLORIDE 0.9% 1,000 ML IV SCH ×3 (05:25→20:00)
[2022-07-23 06:10] LABS: Glucose,Whole Blood 208 mg/dL (70-110)
[2022-07-23] MEDS: NON FORMULARY DRUG (Dextroamphetamine/Amphetamine [Adderall] 30 MG Tablet) PO SCH ×2 (08:19→15:30)
[2022-07-23] MEDS: ISOSORBIDE MONONITRATE ER 30 MG TAB.ER.24H PO SCH (08:20)
[2022-07-23] MEDS: ENOXAPARIN 40 MG/0.4 ML SYRINGE SQ SCH (08:20)
[2022-07-23] MEDS: PANTOPRAZOLE 40 MG/10 ML VIAL IV SCH (08:21)
[2022-07-23] MEDS: SPIRONOLACTONE 25 MG TAB PO SCH (08:21)
[2022-07-23] MEDS: lisinopriL 5 MG TAB PO SCH (08:21)
[2022-07-23] MEDS: ALBUTEROL HFA INHALER INHALATION SCH (08:51)
[2022-07-23] MEDS: IPRATROPIUM 0.5 MG/2.5 ML NEBU INHALATION SCH (08:52)
[2022-07-23] MEDS ORDERED: PANTOPRAZOLE 40 MG TABLET PO SCH (09:00)
[2022-07-23] MEDS ORDERED: DEXTROSE 50% SYRINGE 50 ML IVP PRN ×4 (10:45→10:56)
[2022-07-23 11:16] LABS: Glucose,Whole Blood 180 mg/dL (70-110)
[2022-07-23] MEDS: INSULIN ASPART (NovoLOG) 100 UNIT/ML VIAL SQ SCH ×3 (11:49→21:52)
[2022-07-23 12:12] VITALS: BMI 36.7
--- NOTE | 2022-07-23 12:43 | XR ---
EXAMINATION TYPE: XR chest 2V DATE OF EXAM: 07/23/2022 COMPARISON: Chest x-ray June 24, 2022 HISTORY: Shortness of breath TECHNIQUE: Frontal and lateral views of the chest are obtained. FINDINGS: Chronic parenchymal changes with elevated left hemidiaphragm is redemonstrated. There is i ncreased opacity in the bilateral mid to lower lungs. The cardiac silhouette size is stable and with in normal limits. The osseous structures are intact. IMPRESSION: Chronic changes with new left greater than right bilateral mid to lower lung infiltrates and/or edema felt present.
[2022-07-23] MEDS: IPRATROPIUM-ALBUTEROL 3 ML NEB INHALATION SCH ×3 (12:47→22:13)
--- NOTE | 2022-07-23 15:43 | P.CONS ---
History of Present Illness - Reason for Consult Consult date: 07/23/22 Medical management - Chief Complaint Severe shortness of breath associated of the right upper abdominal pain - History of Present Illness Dictation on medical consult requested by the attending Dr. Nelson the surgeon. Date of consult 07/23/2022. Consultation by Dr. Nicole internal medicine. Patient presented to the emergency room on 07/20/2019 3 in the evening with to complain first one is shortness of breath and despite that he has oxygenation at home and he is on chronic oxygen due to his respiratory failure and also on CPAP apparently has been now progressive and decreased air entry in both sides of the lung basis and with the obtaining the chest x-ray nondiagnostic and indicating infiltrate however patient did not have no fever or chills or leukocytosis or expectoration with the underlying COPD but pulmonary fibrosis is a highly suspected versus infiltrate I requested computed tomography scan without contrast high his elution for clarifying these issue with the no leukocytosis or fever or chills or sputum production Patient also has ALLERGY to dye and iodine with the presence of a second complaint of abdominal pain we do not starting any preparation for dye has we are going to do it without contrast #2 second complain with the severe abdominal pain patient stated 10 over 10 in the right upper quadrant as the patient stated was feeling that he is dying from the pain and he came to the emergency room with the underlying past history of multiple surgery and adhesions, the pain is extremely high inspired the patient had pump for Dilaudid in the right abdomen was for many years with a history of chronic pain syndrome by Dr. Thao the pain clinic added to pain medication that he received as well from the pain clinic. History of present illness: The Patient was recently admitted to [facility] underwent EGD by Dr. Nicholas because of chest pain across the chest and at that time patient seen by pulmonary as well as cardiology and decided that the pain was not cardiac Dr. Nelson the surgeon did EGD and found esophageal stenosis and stricture an d did dilated the esophagus subsequently patient released from the pain completely he went home subsequently however these pain is different pain and in the right upper quadrant with the possibility is very high from adhesions of the abdomen and patient despite all of the above he could not tolerated. Patient has history of diabetes mellitus2 and hyperglycemia on this admission and he is not on steroid. As patient admitted with intractable pain under care of Jaclyn Blanco for for further evaluation and probable surgical intervention was a laparoscopy for clearing the adhesion. Past medical history he had history of emphysema history of previous Corvette 19 infection and treated, morbid obesity, osteoarthritis of the hip joint, hyperlipidemia recurrent nausea, pulmonary hypertension, obstructive sleep apnea, testicular hypofunction, chronic pain syndrome, chronic respiratory fail ure, chronic supplemental of oxygen. Diabetic neuropathy. His ALLERGIES: Metformin, Januvia, livalo, iodine, bees sting, contrast for testing Positive Corvette in January 2021 at [facility]. Patient despite of the vaccination he received from with a booster Habits EX-SMOKER stop smoking at 2002 and he used to smoke 2 pack per day. Family history has 2 grownup children 1 daughter one son. New BMI 36.4 in the office with obesity, chronic oxygen use 3-4 L/m nasal cannula. With a history of esophageal dysmotility. On review of system: After reviewing the 14 bullet main concern for the patient is severe pain and the shortness of breath. And despite of using oxygen and CPAP and the pain 10 over 10 or more as he described, he denied any edema of the extremities, denied any cough or expectoration, denied any fever or chills, no dizziness no blurred vision. On the physical exam: Patient was conscious alert oriented able to express his shortness of breath and severe pain and his frustration. Head was normocephalic atraumatic and he normal pupil with the squinting and right eye lazy as he stated for childhood normal hearing, and normal swallowing. Neck was supple no JVD no thyromegaly no lymphadenopathy Normal speech and normal long Hearing was normal Chest increased anteroposterior diameter with the decrease entry on the bases bilaterally. With the underlying emphysema and possible scarring or pulmonary fibrosis . Heart was regular sinus rhythm patient from the old record indicating that he had a stress test and 2015 was nondiagnostic. And no evidence of ischemic abnormalities On 2013 he had a carotid duplex study was normal was read by Dr. Hany Escobar vascular surgeon. And he had previous echocardiogram on 02/03/2012 with the ejection fraction 55% and he had mild mitral mild tricuspid regurg and mild or trace pulmonary regurg and at that time they was presence of gradient mild accord hour on the aortic valve with the PE gradient 14 mmHg and the mean gradient 8 mmHg his cardiology DrTanmay Vitale however it appeared that patient had no recent echocardiogram. No evidence of heart failure or acute NM however he had hypertension and he had fatty infiltration of the liver which was diagnosed then you [facility]. Abdomen: Morbidly obese multiple scars severe pain in the upper abdomen and the right upper quadrant he has in the mid abdomen on the right side the pump for pain and multiple scars. He had a positive bowel sounds but severe tenderness with light palpation in the right upper quadrant. Extremities he had no edema and positive pulses and underlying arthritis of the joint including knee as well as a spine with osteoarthritis obesity KI of the skin no evidence of bruises. Assessment: #1 after review the laboratories with the no evidence of leukocytosis however his C-reactive protein 14.3 extremely high his chemistry was normal and liver enzyme was normal, creatinine 0.35 and glucose 307. With the underlying uncontrolled diabetes, GFR for non- more than 90 on 07/22/2022 yesterday on admission also his white count was WBC 10 hemoglobin 13.8 and platelet count 247 #2 they did a CAT scan in the ER of the abdomen and pelvis and found that left lower lungs air space opacity and emphysema within the right lower lung with the predominantly in the right middle lobe. Otherwise no other finding by the computed tomography scan and also found moderate to severe L3-L4 spinal canal stenosis #3 underlying pulmonary fibrosis. In the x-ray as infiltrate highly considered and we requested the computed tomography scan high resolution to clarify the issue was no clear evidence of infection meanwhile we order pro-calcitonin as well as any T pro-BMP with no previous history of congestive heart failure or NM. #4 intractable abdominal pain more than 10 over 10 with the possibility of adhesions from his recurrent surgery #5 history of esophageal stenosis and stricture and he had a dilated dictation b y EGD in his last hospitalization. Plan: #1 we'll cover with insulin to scale #2 we'll order an anemia T pro-BMP, and pro-calcitonin No. 2 we'll order the computed tomography scan high residual evaluation to clarify the issue of pulmonary fibrosis versus pneumonia with no clinical evidence of pneumonia with the association with severe shortness of breath. #2 continue home medication #3 Dr. Ware probably will do for further investigation of laparoscopy for evaluation of these severe agitation and pain. #4 may patient to use his CPAP that at home in the hospital Past Medical History Past Medical History: COPD, Diabetes Mellitus, Deep Vein Thrombosis (DVT), GERD/Reflux, Hyperlipidemia, Hypertension, Pneumonia, Sleep Apnea/CPAP/BIPAP Additional Past Medical History / Comment(s): COVID IN JANUARY 2021. CHRONIC ABD PAIN HAS NOT FOUND DEFINITIVE CAUSE but has a abdominal dilaudid pain pump. Hx. of Diverticulitis, Pneumonia (2018), oxygen @ 5L ATC, chronic back pain, uses CPAP, hx. DVT RT leg , neuropathy feet, hx of pancreatitis.bilateral cataracts removed, Diabetes (new diagnosis 2022/possible steroid induced per patient) History of Any Multi-Drug Resistant Organisms: None Reported Past Surgical History: Appendectomy, Bowel Resection, Cholecystectomy Additional Past Surgical History / Comment(s): BOWEL RESECTION. Colonoscopy, exp. laparotomy, EGD, LASIK EYE SURGERY, pain pump Past Anesthesia/Blood Transfusion Reactions: No Reported Reaction Past Psychological History: No Psychological Hx Reported Smoking Status: Former smoker Past Alcohol Use History: Rare Additional Past Alcohol Use History / Comment(s): quit smoking 2000, smoked 1- 2ppd since age of 17 Past Drug Use History: Marijuana Additional Drug Use History / Comment(s): Edibles 1-2 times a week for pain control - Past Family History Brother(s) Family Medical History: Cancer Additional Family Medical History / Comment(s): Colon Medications and Allergies Home Medications Medication Instructions Recorded Confirmed Type Spironolactone [Aldactone] 25 mg PO DAILY 01/27/15 07/22/22 History Omeprazole 40 mg PO DAILY 07/29/21 07/22/22 History lisinopriL [Zestril] 5 mg PO DAILY 07/29/21 07/22/22 History oxyCODONE-APAP 10-325MG [Percocet 1 tab PO Q8H 07/29/21 07/22/22 History 10-325 mg] tiZANidine HCL 4 mg PO BID PRN 07/29/21 07/22/22 History Albuterol Sulfate [Albuterol 2 puff PO RT-QID 06/24/22 07/22/22 History Sulfate Hfa] Atorvastatin [Lipitor] 20 mg PO HS 06/24/22 07/22/22 History Dextroamphetamine/Amphetamine 30 mg PO BID@0900,1600 06/24/22 07/22/22 History [Adderall] Ipratropium Nebulized [Atrovent 0.5 mg INHALATION RT-QID 06/24/22 07/22/22 History Nebulized 0.2 MG/ML] Isosorbide Dinitrate 30 mg PO DAILY 06/24/22 07/22/22 History INSULIN ASPART (NovoLOG) [NovoLOG 5 unit SQ AC-TID PRN 07/22/22 07/22/22 History (formulary)] Allergies Allergy/AdvReac Type Severity Reaction Status Date / Time bee pollen Allergy Anaphylaxis Verified 07/22/22 18:23 Iodinated Contrast Media Allergy Anaphylaxis Verified 07/22/22 18:23 [Iodinated Contrast Media - IV Dye] metformin AdvReac Abdominal Verified 07/22/22 18:23 Pain Physical Exam Vitals: Vital Signs Temp Pulse Pulse Resp BP BP Pulse Ox 07/23/22 13:56 98.2 F 69 16 107/69 97 07/23/22 12:58 73 07/23/22 12:47 72 07/23/22 09:03 68 07/23/22 08:53 65 96 07/23/22 07:00 98.4 F 66 18 132/77 99 07/23/22 01:20 98.4 F 73 18 146/94 95 07/22/22 23:57 97.9 F 74 18 158/83 97 07/22/22 23:33 61 18 135/94 97 07/22/22 22:46 71 18 126/86 99 07/22/22 20:56 69 18 142/95 97 07/22/22 20:40 78 07/22/22 20:30 69 07/22/22 19:15 80 18 131/90 96 07/22/22 17:17 76 18 124/91 97 07/22/22 15:03 98 F 93 20 125/80 94 L Intake and Output 07/22/22 07/23/22 07/23/22 22:59 06:59 14:59 Intake Total 900 Output Total 200 Balance 700 Intake: Intake, IV Titration 900 Amount Sodium Chloride 0.9% 1, 900 000 ml @ 75 mls/hr IV . [id number] JONNY Rx#:[id number] Output: Urine 200 Other: # Voids 1 Weight 112.945 kg 112.945 kg 112.945 kg Results CBC & Chem 7: 07/22/22 15:28 07/22/22 15:28 Labs: Abnormal Lab Results - Last 24 Hours (Table) 07/22/22 07/22/22 07/22/22 Range/Units 15:28 15:28 16:25 Carbon Dioxide 31 H (22-30) mmol/L Creatinine 0.35 L (0.66-1.25) mg/dL Glucose 307 H (74-99) mg/dL POC Glucose (mg/dL) (70-110) mg/dL C-Reactive Protein 14.3 H (<1.0) mg/dL Ur Specific [place] 1.038 H (1.001-1.035) Urine Protein Trace H (Negative) Urine Glucose (UA) 4+ H (Negative) Urine Ketones Trace H (Negative) 07/22/22 07/23/22 07/23/22 Range/Units 19:15 06:08 11:14 Carbon Dioxide (22-30) mmol/L Creatinine (0.66-1.25) mg/dL Glucose (74-99) mg/dL POC Glucose (mg/dL) 218 H 208 H 180 H (70-110) mg/dL C-Reactive Protein (<1.0) mg/dL Ur Specific [place] (1.001-1.035) Urine Protein (Negative) Urine Glucose (UA) (Negative) Urine Ketones (Negative)
--- NOTE | 2022-07-23 16:47 | CT ---
EXAMINATION TYPE: High-resolution CT chest DATE OF EXAM: 07/23/2022 COMPARISON: 01/20/2018 HISTORY: 71-year-old male Pulmonary Fibrosis. TECHNIQUE: Thin cut scanning of the chest utilizing 1 mm slice thickness and 1 cm gap per HRCT protoc ol. No IV contrast. Both prone and supine imaging is utilized. CT DLP: 2012.9 mGycm Automated exposure control for dose reduction was used. FINDINGS: Heart normal size without pericardial effusion. LAD coronary artery calcifications are present. Mildly aneurysmal ascending aorta 4.2 cm versus 4.0 cm, previously. Conventional arterial sclerotic a natomy. Mildly enlarged caliber to the main right and left pulmonary arteries measuring up to 2.7 cm each sug gesting underlying pulmonary arterial hypertension. Mild bilateral gynecomastia. Allowing for HRCT technique, no obvious thoracic lymphadenopathy. Diffuse interstitial infiltrates throughout the left lung. Scattered areas of pleural parenchymal thi ckening are also present as well as patchy groundglass changes. More extensive patchy consolidation a nd volume loss at the left base. Given nodular and focal configuration to some of these areas, follow -up after treatment is recommended to exclude any underlying suspicious pulmonary nodules or masses. No ariane honeycombing Visualized upper abdomen shows postcholecystectomy change. Degenerative change of both shoulders. Spinal stimulator lead extending to the lower thoracic spinal canal. There is moderate to advanced emphysematous change present. IMPRESSION: 1. THE DOMINANT PATTERN THROUGHOUT THE LUNGS IS THAT OF COPD WITH MODERATE TO SEVERE EMPHYSEMA. ASSOC IATED PULMONARY ARTERIAL HYPERTENSION. 2. COMPARED TO 2018, THERE ARE EXTENSIVE NEW INTERSTITIAL AND PATCHY INFILTRATES/OPACITIES ON THE LEF T. SOME OF THESE HAVE A NODULAR CONFIGURATION. THERE IS A MORE MASSLIKE CONFIGURATION AT THE LEFT BAS E. CORRELATE FOR UNDERLYING PNEUMONIA OR ATYPICAL INFECTIONS. 3. FOLLOW-UP AFTER ANY POTENTIAL TREATMENT TO ASSESS FOR CLEARANCE AND EXCLUDE UNDERLYING NODULES/MAS S. 4. NO HONEYCOMBING TO SUGGEST IPF/UIP. 5. MILD ANEURYSM ASCENDING AORTA AT 4.2 CM, SLIGHTLY INCREASED FROM 4.0 CM IN 2018.
[2022-07-23] MEDS ORDERED: LACTATED RINGERS 1,000 ML IV ONE (17:00)
[2022-07-23] MEDS ORDERED: PROPOFOL 10 MG/ML 20 ML VIAL IV ONE (17:49)
[2022-07-23] MEDS ORDERED: HEPARIN SODIUM,PORCINE 5,000 UNIT/ML 1 ML VIAL ONE (17:49)
[2022-07-23] MEDS ORDERED: NEOSTIGMINE 1 MG/ML 10 ML VIAL ONE (17:49)
[2022-07-23] MEDS ORDERED: LIDOCAINE 2% INJ 20 MG/ML (2 ML VIAL) ONE (17:49)
[2022-07-23] MEDS ORDERED: PHENYLEPHRINE-0.9% NACL SYG 1,000 MCG/10 ML SYRINGE ONE (17:49)
[2022-07-23] MEDS ORDERED: ePHEDrine 50 MG/ML 1 ML VIAL ONE (17:49)
[2022-07-23] MEDS ORDERED: ROCURONIUM 10 MG/ML (5 ML VIAL) IV ONE (17:49)
[2022-07-23] MEDS ORDERED: SUCCINYLCHOLINE CHLORIDE 200 MG/10 ML VIAL IV ONE (17:49)
[2022-07-23] MEDS ORDERED: fentaNYL (PF) 50 MCG/ML 2 ML AMP ONE (17:49)
[2022-07-23] MEDS ORDERED: GLYCOPYRROLATE 0.2 MG/ML 2 ML VIAL ONE (17:49)
[2022-07-23] MEDS ORDERED: SODIUM CHLORIDE 0.9% 100 ML BAG ONE (18:10)
[2022-07-23] MEDS ORDERED: SODIUM CHLORIDE 0.9% 50 ML with ceFAZolin 2,000 MG IV ONE ×2 (18:10)
[2022-07-23] MEDS ORDERED: ceFAZolin 1,000 MG VIAL ONE (18:10)
[2022-07-23] MEDS ORDERED: BUPIVACAINE (PF) 0.25% 30 ML VIAL SQ ONE (18:21)
[2022-07-23] MEDS ORDERED: HYDROmorphone 0.5 MG/0.5 ML SYRINGE IVP ONE ×2 (20:19→20:29)
[2022-07-23] MEDS ORDERED: ONDANSETRON 4 MG/2 ML VIAL IVP ONE (20:20)
[2022-07-23 20:27] LABS: Glucose,Whole Blood 148 mg/dL (70-110)
--- NOTE | 2022-07-23 20:42 | P.OP ---
Date of Procedure: 07/23/22 Description of Procedure: SURGEON: LOIS AHUMADA MD PREOPERATIVE DIAGNOSES: 1. Intractable abdominal pain 2. Chronic pain syndrome 3. Status post pain pump insertion, right lower quadrant 4. Morbid obesity due to excess calories, BMI 38.6 5. Congestive heart failure with diastolic dysfunction 6. Ischemic cardiomyopathy 7. Gastroesophageal reflux disease with erosive esophagitis 8. Chronic obstructive pulmonary disease, severe with dependence on oxygen 9. Neuropathy 10. Personal history of multiple abdominal surgeries and bowel obstruction 11. Thoracic abdominal aortic aneurysm 12. Personal history of DVTs 13. Esophageal dysmotility POSTOPERATIVE DIAGNOSES: 1. Intractable abdominal pain due to internal hernia, intermittent bowel obstruction 2. Chronic pain syndrome 3. Status post pain pump insertion, right lower quadrant 4. Morbid obesity due to excess calories, BMI 38.6 5. Congestive heart failure with diastolic dysfunction 6. Ischemic cardiomyopathy 7. Gastroesophageal reflux disease with erosive esophagitis 8. Chronic obstructive pulmonary disease, severe with dependence on oxygen 9. Neuropathy 10. Personal history of multiple abdominal surgeries and bowel obstruction 11. Thoracic abdominal aortic aneurysm 12. Personal history of DVTs 13. Esophageal dysmotility OPERATION: 1. Robotic-assisted da Sheila Xi laparoscopic extensive lysis of adhesions over 1.5 hr 2. Robotic-assisted da Sheila Xi laparoscopic reduction of internal hernia with intermittent bowel obstruction, right lower quadrant COMPLICATIONS: None. Anesthesia: GETA, local Estimated Blood Loss (ml): 5 Pathology: none sent Condition: stable OPERATIVE FINDINGS: 1. Severe pelvic adhesions involving small bowel and interloop adhesions 2. Deep intra-abdominal adhesions along the right lower quadrant with internal hernia identified and resected 3. Small bowel viable 4. Pelvic adhesions with dense interloop adhesions lysed of the abdominal wall 5. Duction of internal hernia with release of intermittent small bowel obstruction INDICATIONS: The patient is a 71-year-old male who with severe right upper quadrant right lower quadrant abdominal pain despite pain pump and history of chronic pain syndrome. He presented with intractable abdominal pain. He has a personal history of bowel obstructions including severe intra-abdominal adhesions. Surgical intervention was described for his intractable abdominal pain a personal history of adhesions. Informed consent was obtained. Robotic assisted laparoscopic approach was described. Benefits and risks of the procedure including but not limited to bleeding, infection, injury to the small bowel was described. Informed consent was obtained. DESCRIPTION OF PROCEDURE: Patient was brought to the operating room, placed in supine position. After general induction, the abdomen had been prepped and draped in standard sterile fashion. The robotic da Sheila XI system was primed. After a timeout protocol was performed, the patient had been prepped and draped in standard sterile fashion. The robot was docked along the right lateral abdomen. The patient was repositioned in Trendelenburg position of 7- degrees and left tilt 7. A 5 mm 0 degrees laparoscopic trocar entry was performed along the left upper quadrant. The abdomen was insufflated to 15 mmHg pressure which he tolerated well. Diagnostic laparoscopy demonstrated severe intra-abdominal adhesions involving the lower midline. No injury to the bowel, viscera or mesentery was identified. Next, three 8 mm robotic ports were placed along the left lateral abdominal wall. The 5 mm trocar was exchanged for a 8 mm trocar. Total trochars used four 8 mm robotic trochars. Please note that the ports were placed at least 10 cm away from the target anatomy. Instruments were interchanged using a grasper, vessel sealer. I had sat at the console. Extensive lysis of adhesions over 1.5 hour was performed using vessel sealer and blunt dissection. Carefully the adhesions were taken down to address the lower midline to pelvis. The small bowel was adherent to the lower abdominal wall. The cecum was identified with prior appendectomy identified. The small bowel was investigated from the terminal ileum proximally. Careful lysis of adhesions was performed to release the small intestine without enterotomy. Multiple intraloop adhesions were carefully lysed without injury. At the mid jejunum, an adhesive band along the retroperitoneum to the right lower quadrant was identified creating an internal hernia. Small bowel was reduced and the internal hernia was resected after extensive lysis of adhesions. Resolution of intermittent bowel obstruction was confirmed. Proximally, dense interloop adhesions of the deep pelvis were sharply lysed with adhesions freed from the entire abdominal wall. Hemostasis was checked. The robot was undocked. All pneumoperitoneum and instruments were evacuated from the abdominal cavity. The incisions were reapproximated using 4-0 Monocryl in an interrupted subcuticular fashion. Please note along the trocar sites, local anesthetic was placed as a field block prior to insertion of all instruments. Liquid glue was applied to the skin. At the end of the procedure needle, sponge, and instrument count had been verified correct by the surgical garment inspector. The patient was transferred to postanesthea care unit in stable condition. Intraoperative images including findings were described to the patients family.
[2022-07-23 21:37] LABS: Glucose,Whole Blood 134 mg/dL (70-110)
[2022-07-23] MEDS: ATORVASTATIN 20 MG TAB PO SCH (21:53)
[2022-07-24] MEDS: HYDROmorphone 1 MG/ML 1 ML SYRINGE IVP PRN ×2 (02:22→08:46)
[2022-07-24] MEDS: SODIUM CHLORIDE 0.9% 1,000 ML IV SCH (02:23)
[2022-07-24] MEDS: oxyCODONE-APAP 10-325MG 1 EACH TAB PO SCH ×2 (05:06→12:07)
[2022-07-24 05:55] LABS: Glucose,Whole Blood 164 mg/dL (70-110)
[2022-07-24] MEDS: INSULIN ASPART (NovoLOG) 100 UNIT/ML VIAL SQ SCH ×2 (06:24→12:08)
[2022-07-24 07:36] VITALS: BP 127/76; RESP 16; TEMP 99.1
[2022-07-24] MEDS: PANTOPRAZOLE 40 MG/10 ML VIAL IV SCH (08:36)
[2022-07-24] MEDS: ISOSORBIDE MONONITRATE ER 30 MG TAB.ER.24H PO SCH (08:36)
[2022-07-24] MEDS: SPIRONOLACTONE 25 MG TAB PO SCH (08:36)
[2022-07-24] MEDS: ENOXAPARIN 40 MG/0.4 ML SYRINGE SQ SCH (08:36)
[2022-07-24] MEDS: lisinopriL 5 MG TAB PO SCH (08:36)
[2022-07-24] MEDS: IPRATROPIUM-ALBUTEROL 3 ML NEB INHALATION SCH ×2 (08:53→12:54)
[2022-07-24] MEDS: NON FORMULARY DRUG (Dextroamphetamine/Amphetamine [Adderall] 30 MG Tablet) PO SCH (10:02)
--- NOTE | 2022-07-24 11:01 | P.DS ---
Providers Date of admission: 07/22/22 19:06 Expected date of discharge: 07/24/22 Attending physician: Jaclyn Ware Consults: 07/22/22 19:19 Consult Physician Routine Consulting Provider: Patrick Nicole Consult Reason/Comments: Medical management Do you want consulting provider notified?: Yes, Notify in am Primary care physician: Patrick Sotosee [facility] Course: Patient doing well today. He is tolerating his regular diet. Underwent lysis of adhesions yesterday. He is ambulate him. He is voiding. He would like to go home today. Denies nausea or vomiting. Will plan discharge. Follow-up with Dr. Nelson next week. Patient Condition at Discharge: Good Plan - Discharge Summary Discharge Rx Participant: Yes New Discharge Prescriptions: New Acetaminophen Tab [Tylenol Tab] 1,000 mg PO Q6HR PRN #30 tablet PRN Reason: Pain Continue Spironolactone [Aldactone] 25 mg PO DAILY tiZANidine HCL 4 mg PO BID PRN PRN Reason: Pain lisinopriL [Zestril] 5 mg PO DAILY Omeprazole 40 mg PO DAILY Atorvastatin [Lipitor] 20 mg PO HS oxyCODONE-APAP 10-325MG [Percocet 10-325 mg] 1 tab PO Q8H Ipratropium Nebulized [Atrovent Nebulized 0.2 MG/ML] 0.5 mg INHALATION RT-QID Dextroamphetamine/Amphetamine [Adderall] 30 mg PO BID@0900,1600 Isosorbide Dinitrate 30 mg PO DAILY Albuterol Sulfate [Albuterol Sulfate Hfa] 2 puff PO RT-QID INSULIN ASPART (NovoLOG) [NovoLOG (formulary)] 5 unit SQ AC-TID PRN PRN Reason: hold if bs <150 Discharge Medication List Spironolactone [Aldactone] 25 mg PO DAILY 01/27/15 [History] Omeprazole 40 mg PO DAILY 07/29/21 [History] lisinopriL [Zestril] 5 mg PO DAILY 07/29/21 [History] oxyCODONE-APAP 10-325MG [Percocet 10-325 mg] 1 tab PO Q8H 07/29/21 [History] tiZANidine HCL 4 mg PO BID PRN 07/29/21 [History] Albuterol Sulfate [Albuterol Sulfate Hfa] 2 puff PO RT-QID 06/24/22 [History] Atorvastatin [Lipitor] 20 mg PO HS 06/24/22 [History] Dextroamphetamine/Amphetamine [Adderall] 30 mg PO BID@0900,1600 06/24/22 [History] Ipratropium Nebulized [Atrovent Nebulized 0.2 MG/ML] 0.5 mg INHALATION RT-QID 06/24/22 [History] Isosorbide Dinitrate 30 mg PO DAILY 06/24/22 [History] INSULIN ASPART (NovoLOG) [NovoLOG (formulary)] 5 unit SQ AC-TID PRN 07/22/22 [History] Acetaminophen Tab [Tylenol Tab] 1,000 mg PO Q6HR PRN #30 tablet 07/23/22 [Rx] Follow up Appointment(s)/Referral(s): Jaclyn Ware MD [STAFF PHYSICIAN] - 07/27/22 (TELEHEALTH - DR WILL CALL YOU BETWEEN 8 am to 6 pm ) Patrick Nicole MD [Primary Care Provider] - 1-2 days Patient Instructions/Handouts: Abdominal Pain (ED), Bowel Obstruction (DC), Lysis of Abdominal Adhesions (DC) Activity/Diet/Wound Care/Special Instructions: No lifting over 10 pounds in 2 weeks until August 06. July shower. No bath tub soaks for two weeks until August 06. Diet as tolerated. Use Tylenol, simethicone and ibuprofen or Aleve scheduled for the next 24-48 hours for best pain relief. Use ice along incisions for today to prevent swelling. Discharge Disposition: HOME SELF-CARE
[2022-07-24 11:36] LABS: Glucose,Whole Blood 162 mg/dL (70-110)
--- NOTE | 2022-07-24 11:53 | P.PN ---
Progress Note - Text Progress Note Date: 07/24/22 This is a dictation on the progress note Date of service 07/24/[address] Rogel. Please copy of these note to Dr. Gil pulmonary and critical care for follow-up on the CT and the lung problem for the patient and patient advised to see him as well Patient seen today evaluated and he is free of pain after he underwent laparoscopic lysis of adhesions in the right upper abdomen and found that he had hernia also was treated Patient is free of pain and discharge by the surgical team Dr. Bob is covering for Dr. Ware Patient had computed tomography scan of the chest yesterday, I reviewed it today and I discussed that with patient and advised to be seeing by Dr. Gil who is the pulmonary physician. 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 Associated with pulmonary arterial hypertension. #2 his computed tomography scan compared with 2018. And there are extensive new interstitial and patchy infiltrate opacities on the left. Some of these have nodular configuration. There is more masslike configuration at the left base correlate for underlying pneumonia or a typical infection. #3 follow-up after any potential treatment to assess for clearance and excessive fluid underlying nodule or mass. #4 no honey combing to suggest IPF or UIP. 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 Slightly increased from 4 cm and 2018. Computed tomography scan read by Luis Steen MD In regard of diabetes mellitus2 patient has hemoglobin A1c 8.1, during the hospital stay his last blood sugar was 164 and 134 which is fairly controlled and to be followed as outpatient with the office visit with Dr. Nicole next week patient informed. NT proBNP was 236 not considered evidence of congestive heart failure. And his d-dimer was normal. Vital sign on discharge temperature 99.1 oral heart rate 91/m, respiratory rate 16/m patient on 4 L of oxygen and his blood pressure 127/76 with a mean blood pressure 93 and stable general condition. Exam on discharge: Conscious alert oriented able to ambulate and free of abdominal pain and his shortness of breath has been significantly improved. HEENT no change normocephalic and atraumatic and pupil equal reactive, negative oropharynx and normal swallowing Neck was supple no JVD no thyromegaly no lymphadenopathy trachea midline. Chest he had increased anteroposterior diameter with the underlying history of COPD as well as emphysema however no expectoration and no cough and his white count on admission was normal and no evidence of pneumonia however patient need for further evaluation with the result of the computed tomography scan as mentioned above and very fair the to Dr. Gil his pulmonary physician as outpatient Abdomen: On palpation no tenderness in the right upper quadrant which has been resolved with the laparoscopic done on 07/23/[address]. Extremities: No edema and positive pulses and ambulatory with a history of arthritis of the joint and the spine. Assessment and plan: #1 patient able to be discharged today #2 continue home medication #3 patient need to see Dr. Gil as outpatient with the results of the computed tomography scan next week and discussed with the nurse. #[address] Patrick Rogel for follow-up next week I did inform the patient with the follow-up. #5 follow-up with Dr. Ware the surgeon per her note and plan.
[2022-07-24 13:05] VITALS: PULSE 80
== END 2022-07-24 13:42 | disposition home or self-care (01) | DRG 336 ==
LOC: EC 14:43 → 6NMEDSUR 19:06 → 4SSUR 22:27 → OBSVTOIN 07-23 20:28 → UNDODISOB 07-24 13:42
PROVIDERS: ADMIT Surgery Plastic and Reconstructive Surgery; ATTEND Surgery Plastic and Reconstructive Surgery
PROC: 8E0W4CZ Robotic Assisted Procedure of Trunk Region, Percutaneous Endoscopic Approach (ICD-10-PCS; principal; 2022-07-23 12:05)
PROC: 0DN84ZZ Release Small Intestine, Percutaneous Endoscopic Approach (ICD-10-PCS; principal; 2022-07-23 12:05)
PROC: 0DNW4ZZ Release Peritoneum, Percutaneous Endoscopic Approach (ICD-10-PCS; principal; 2022-07-23 12:05)
PROC: 0WQF4ZZ Repair Abdominal Wall, Percutaneous Endoscopic Approach (ICD-10-PCS; principal; 2022-07-23 12:05)
DX: K46.0 Unspecified abdominal hernia with obstruction, without gangrene (principal); I50.30 Unspecified diastolic (congestive) heart failure; J96.10 Chronic respiratory failure, unspecified whether with hypoxia or hypercapnia; K56.50 Intestinal adhesions [bands], unspecified as to partial versus complete obstruction; E66.01 Morbid (severe) obesity due to excess calories; E11.40 Type 2 diabetes mellitus with diabetic neuropathy, unspecified; E78.5 Hyperlipidemia, unspecified; G89.4 Chronic pain syndrome; I08.1 Rheumatic disorders of both mitral and tricuspid valves; I25.5 Ischemic cardiomyopathy; I11.0 Hypertensive heart disease with heart failure; I27.21 Secondary pulmonary arterial hypertension; I71.60 Thoracoabdominal aortic aneurysm, without rupture, unspecified; J43.9 Emphysema, unspecified; J84.10 Pulmonary fibrosis, unspecified; I71.40 Abdominal aortic aneurysm, without rupture, unspecified; K21.00 Gastro-esophageal reflux disease with esophagitis, without bleeding; K22.4 Dyskinesia of esophagus; Z68.38 Body mass index [BMI] 38.0-38.9, adult; K76.0 Fatty (change of) liver, not elsewhere classified; M16.10 Unilateral primary osteoarthritis, unspecified hip; M47.9 Spondylosis, unspecified; Z99.81 Dependence on supplemental oxygen; Z79.4 Long term (current) use of insulin; Z79.899 Other long term (current) drug therapy; Z86.16 Personal history of COVID-19; Z86.718 Personal history of other venous thrombosis and embolism; Z87.01 Personal history of pneumonia (recurrent); Z87.891 Personal history of nicotine dependence; Z91.041 Radiographic dye allergy status; Z28.311 Partially vaccinated for COVID-19; Z71.3 Dietary counseling and surveillance; Z96.89 Presence of other specified functional implants; Z88.8 Allergy status to other drugs, medicaments and biological substances; Z91.030 Bee allergy status
CPT/HCPCS: 36415; 71046; 71250; 74176; 80053; 81003; 83036; 83605; 83880; 84145; 85025; 85379; 86140; 94640; 94760